=== PATIENT | male | born 1955 | race Caucasian/White ===

== ENCOUNTER 2020-05-08 10:12 | Outpatient (REF) | payer MEDICARE, SELFPAY ==
[2020-05-08 11:44] LABS: MANUAL DIFF FLAG NO
[2020-05-08 11:48] LABS: Basophils Percent Auto 0.6 % (0-2); Eosinophils Absolute Auto 0.1 X10*3/uL (0.0-0.4); Eosinophils Percent Auto 1.4 % (0-4); Hematocrit 46.2 % (42-52); Hemoglobin 14.7 g/dl (14.0-18.0); Imm Gran Abs Auto 0.01 X10*3/uL (0.00-0.03); Imm Gran Pct Auto 0.2 % (0.0-0.4); Lymphocytes Absolute Auto 1.6 X10*3/uL (1.2-4.9); Lymphocytes Percent Auto 24.7 % (20-40); Mean Corpuscular HGB Conc 31.8 g/dl (31.0-36.0); Mean Corpuscular Hemoglobin 28.1 pg (27.0-33.0); Mean Corpuscular Volume 88.2 fL (80-98); Mean Platelet Volume 11.2 fL (9.4-12.4); Monocytes Absolute Auto 0.7 X10*3/uL (0.1-1.2); Monocytes Percent Auto 9.9 % (2-11); Neutrophils Absolute Auto 4.2 X10*3/uL (2.0-8.3); Neutrophils Percent Auto 63.2 % (45-73); Platelet Count 171 X10*3/uL (160-400); Red Blood Count 5.24 X10*6/uL (4.60-5.80); Red Cell Distribution Width 12.8 % (11.0-16.0); White Blood Count 6.6 X10*3/uL (4.8-10.8)
[2020-05-08 12:11] LABS: Alanine Aminotransferase 25 U/L (0-40); Albumin Level 4.6 g/dL (3.5-5.0); Alkaline Phosphatase 75 U/L (39-117); Anion Gap 13 (12-20); Aspartate Amino Transferase 16 U/L (5-37); Bilirubin Total 0.8 mg/dL (0.0-1.0); Blood Urea Nitrogen 28 mg/dL (9-16); Calcium 9.4 mg/dL (8.4-10.2); Carbon Dioxide 31 mmol/L (22-29); Chloride 100 mmol/L (96-108); Cholesterol 164 mg/dL; Estimated Average Glucose 223 mg/dL; Estimated Glomerular Filt Rate > 60; Glucose Fasting 192 mg/dL (60-99); HDL Cholesterol 50 mg/dL; Hemoglobin A1c % 9.4 %; LDL Cholesterol Calculated 85 mg/dl; Potassium 4.9 mmol/l (3.3-5.1); Sodium 139 mmol/L (135-145); Total Protein 7.2 g/dL (6.5-8.0); Triglycerides 148 mg/dL
[2020-05-08 12:13] LABS: Glucose Urine UA >=1000 MG/DL (NEG); Leukocyte Esterase Urine NEG (NEG); Nitrite Urine NEG (NEG); PH 5.5 (5.0-8.0); Urine Blood NEG (NEG); Urine Ketones NEG (NEG); Urine Protein NEG (NEG-TRACE)
[2020-05-08 12:16] LABS: Appearance Urine CLEAR; Color Urine YELLOW
[2020-05-08 12:21] LABS: Creatinine Urine 71.25 mg/dL
[2020-05-08 12:34] LABS: Free T4 (Free Thyroxine) 0.92 ng/dL (0.71-1.85); Thyroid Stimulating Hormone 0.18 uIU/mL (0.32-4.0); Vitamin D 25-OH Total 36.3 ng/mL (>30)
[2020-05-08 12:48] LABS: Folate 17.6 ng/mL (> or = 4.0); Vitamin B12 693 pg/mL (200-900)
[2020-05-08 13:13] LABS: RBC Urine 0-2 /HPF (0); WBC Urine 0-2 /HPF (0-4)
[2020-05-09 17:37] LABS: C Peptide 2.27 ng/mL (0.80-3.85)
[2020-05-13 20:32] LABS: Glutamic acid decarboxylase Ab <5 IU/mL (<5)
[2020-05-14 12:27] LABS: Testosterone, Free 69.1 pg/mL (35.0-155.0); Testosterone, Total 362 ng/dL (250-1100)
== END 2020-05-08 10:13 | disposition home or self-care (01) ==
LOC: HO.LAB 10:12
PROVIDERS: PCP Internal Medicine; Visit Provider Internal Medicine
DX: E11.29 Type 2 diabetes mellitus with other diabetic kidney complication (principal); E78.5 Hyperlipidemia, unspecified; I10 Essential (primary) hypertension; R79.89 Other specified abnormal findings of blood chemistry; E55.9 Vitamin D deficiency, unspecified; F10.10 Alcohol abuse, uncomplicated; G47.33 Obstructive sleep apnea (adult) (pediatric); E34.9 Endocrine disorder, unspecified
CPT/HCPCS: 36415; 80053; 80061; 81001; 81003; 82043; 82306; 82607; 82746; 83036; 84402; 84403; 84439; 84443; 84681; 85025; 86341

== ENCOUNTER 2020-08-10 10:31 | Outpatient (REF) | payer MEDICARE, OTHER, SELFPAY ==
[2020-08-10 10:58] LABS: MANUAL DIFF FLAG NO
[2020-08-10 11:09] LABS: Basophils Percent Auto 0.4 % (0-2); Eosinophils Absolute Auto 0.1 X10*3/uL (0.0-0.4); Eosinophils Percent Auto 0.9 % (0-4); Hemoglobin 14.6 g/dl (14.0-18.0); Imm Gran Abs Auto 0.02 X10*3/uL (0.00-0.03); Imm Gran Pct Auto 0.3 % (0.0-0.4); Lymphocytes Absolute Auto 1.6 X10*3/uL (1.2-4.9); Lymphocytes Percent Auto 21.2 % (20-40); Mean Corpuscular HGB Conc 31.7 g/dl (31.0-36.0); Mean Corpuscular Hemoglobin 28.2 pg (27.0-33.0); Mean Platelet Volume 10.4 fL (9.4-12.4); Monocytes Absolute Auto 0.7 X10*3/uL (0.1-1.2); Monocytes Percent Auto 8.9 % (2-11); Neutrophils Absolute Auto 5.1 X10*3/uL (2.0-8.3); Neutrophils Percent Auto 68.3 % (45-73); Platelet Count 179 X10*3/uL (160-400); Red Blood Count 5.17 X10*6/uL (4.60-5.80); Red Cell Distribution Width 12.7 % (11.0-16.0); White Blood Count 7.5 X10*3/uL (4.8-10.8)
[2020-08-10 11:22] LABS: Estimated Average Glucose 203 mg/dL; Hemoglobin A1c % 8.7 %
[2020-08-10 11:43] LABS: Creatinine Urine 64.67 mg/dL; Microalbum/Creatinine Ratio Ur 21.6 ug/mg cr
[2020-08-10 12:10] LABS: Free T4 (Free Thyroxine) 0.97 ng/dL (0.71-1.85); Thyroid Stimulating Hormone 0.15 uIU/mL (0.32-4.0)
[2020-08-10 12:16] LABS: Folate 19.1 ng/mL (> or = 4.0); Vitamin B12 601 pg/mL (200-900)
[2020-08-10 12:22] LABS: Alanine Aminotransferase 18 U/L (0-40); Albumin Level 4.7 g/dL (3.5-5.0); Alkaline Phosphatase 66 U/L (39-117); Anion Gap 15 (12-20); Aspartate Amino Transferase 15 U/L (5-37); Bilirubin Total 0.8 mg/dL (0.0-1.0); Blood Urea Nitrogen 26 mg/dL (9-16); Calcium 9.7 mg/dL (8.4-10.2); Carbon Dioxide 30 mmol/L (22-29); Chloride 100 mmol/L (96-108); Cholesterol 122 mg/dL; Estimated Glomerular Filt Rate > 60; Glucose Fasting 149 mg/dL (60-99); HDL Cholesterol 42 mg/dL; LDL Cholesterol Calculated 59 mg/dl; Potassium 4.8 mmol/L (3.3-5.1); Sodium 140 mmol/L (135-145); Total Protein 7.2 g/dL (6.5-8.0); Triglycerides 105 mg/dL
== END 2020-08-10 10:32 | disposition home or self-care (01) ==
LOC: HO.LAB 10:31
PROVIDERS: PCP Internal Medicine; Visit Provider Internal Medicine
DX: I10 Essential (primary) hypertension (principal); R80.9 Proteinuria, unspecified; G47.33 Obstructive sleep apnea (adult) (pediatric); E78.00 Pure hypercholesterolemia, unspecified; E11.29 Type 2 diabetes mellitus with other diabetic kidney complication; R94.6 Abnormal results of thyroid function studies; E66.9 Obesity, unspecified; F10.11 Alcohol abuse, in remission; E55.9 Vitamin D deficiency, unspecified
CPT/HCPCS: 36415; 80053; 80061; 82043; 82306; 82607; 82746; 83036; 84439; 84443; 85025

== ENCOUNTER 2020-11-10 10:56 | Outpatient (REF) | payer MEDICARE, OTHER, SELFPAY ==
[2020-11-10 12:01] LABS: MANUAL DIFF FLAG NO
[2020-11-10 12:09] LABS: Basophils Percent Auto 0.3 % (0-2); Eosinophils Absolute Auto 0.1 X10*3/uL (0.0-0.4); Eosinophils Percent Auto 1.3 % (0-4); Hemoglobin 14.4 g/dl (14.0-18.0); Imm Gran Abs Auto 0.01 X10*3/uL (0.00-0.03); Imm Gran Pct Auto 0.2 % (0.0-0.4); Lymphocytes Absolute Auto 1.7 X10*3/uL (1.2-4.9); Lymphocytes Percent Auto 27.8 % (20-40); Mean Corpuscular HGB Conc 31.3 g/dl (31.0-36.0); Mean Corpuscular Hemoglobin 27.6 pg (27.0-33.0); Mean Corpuscular Volume 88.1 fL (80-98); Mean Platelet Volume 10.9 fL (9.4-12.4); Monocytes Absolute Auto 0.7 X10*3/uL (0.1-1.2); Monocytes Percent Auto 10.9 % (2-11); Neutrophils Absolute Auto 3.6 X10*3/uL (2.0-8.3); Neutrophils Percent Auto 59.5 % (45-73); Platelet Count 194 X10*3/uL (160-400); Red Blood Count 5.22 X10*6/uL (4.60-5.80); Red Cell Distribution Width 12.9 % (11.0-16.0)
[2020-11-10 12:19] LABS: Estimated Average Glucose 235 mg/dL; Hemoglobin A1c % 9.8 %
[2020-11-10 12:26] LABS: Glucose Urine UA >=1000 MG/DL (NEG); Leukocyte Esterase Urine NEG (NEG); Nitrite Urine NEG (NEG); PH 5.5 (5.0-8.0); Specific Gravity - Urine 1.025 (1.005-1.025); Urine Blood NEG (NEG); Urine Ketones 15 MG/DL (NEG); Urine Protein NEG (NEG-TRACE)
[2020-11-10 12:28] LABS: Appearance Urine CLEAR; Color Urine YELLOW
[2020-11-10 12:41] LABS: Free T4 (Free Thyroxine) 1.06 ng/dL (0.71-1.85); Thyroid Stimulating Hormone 0.19 uIU/mL (0.32-4.0); Vitamin D 25-OH Total 32.2 ng/mL (>30)
[2020-11-10 13:10] LABS: RBC Urine 0-2 /HPF (0); WBC Urine 0-2 /HPF (0-4)
[2020-11-10 13:15] LABS: Alanine Aminotransferase 16 U/L (0-40); Albumin Level 4.4 g/dL (3.5-5.0); Alkaline Phosphatase 67 U/L (39-117); Anion Gap 13 (12-20); Aspartate Amino Transferase 16 U/L (5-37); Blood Urea Nitrogen 25 mg/dL (9-16); Calcium 9.8 mg/dL (8.4-10.2); Carbon Dioxide 29 mmol/L (22-29); Chloride 102 mmol/L (96-108); Cholesterol 125 mg/dL; Estimated Glomerular Filt Rate > 60; Glucose Fasting 113 mg/dL (60-99); HDL Cholesterol 44 mg/dL; LDL Cholesterol Calculated 64 mg/dl; Potassium 4.6 mmol/L (3.3-5.1); Sodium 139 mmol/L (135-145); Total Protein 6.7 g/dL (6.5-8.0); Triglycerides 86 mg/dL
[2020-11-15 13:02] LABS: Testosterone, Free 54.9 pg/mL (35.0-155.0); Testosterone, Total 337 ng/dL (250-1100)
== END 2020-11-10 10:57 | disposition home or self-care (01) ==
LOC: HO.LAB 10:56
PROVIDERS: PCP Internal Medicine; Visit Provider Internal Medicine
DX: I10 Essential (primary) hypertension (principal); G47.33 Obstructive sleep apnea (adult) (pediatric); E78.00 Pure hypercholesterolemia, unspecified; E11.29 Type 2 diabetes mellitus with other diabetic kidney complication; R94.6 Abnormal results of thyroid function studies; E66.9 Obesity, unspecified; E55.9 Vitamin D deficiency, unspecified; E34.9 Endocrine disorder, unspecified
CPT/HCPCS: 36415; 80053; 80061; 81001; 82306; 83036; 84402; 84403; 84439; 84443; 85025

== ENCOUNTER 2021-02-17 10:21 | Outpatient (REF) | payer MEDICARE, OTHER, SELFPAY ==
[2021-02-17 11:15] LABS: Appearance Urine CLEAR; Color Urine YELLOW; Glucose Urine UA >=1000 MG/DL (NEG); Leukocyte Esterase Urine NEG (NEG); Nitrite Urine NEG (NEG); Specific Gravity - Urine 1.025 (1.005-1.025); Urine Blood NEG (NEG); Urine Ketones NEG (NEG); Urine Protein NEG (NEG-TRACE)
[2021-02-17 11:22] LABS: MANUAL DIFF FLAG NO
[2021-02-17 11:32] LABS: Basophils Percent Auto 0.5 % (0-2); Eosinophils Absolute Auto 0.1 X10*3/uL (0.0-0.4); Eosinophils Percent Auto 1.5 % (0-4); Hematocrit 46.8 % (42-52); Hemoglobin 15.1 g/dl (14.0-18.0); Imm Gran Abs Auto 0.02 X10*3/uL (0.00-0.03); Imm Gran Pct Auto 0.3 % (0.0-0.4); Lymphocytes Absolute Auto 1.6 X10*3/uL (1.2-4.9); Lymphocytes Percent Auto 24.2 % (20-40); Mean Corpuscular HGB Conc 32.3 g/dl (31.0-36.0); Mean Corpuscular Hemoglobin 28.1 pg (27.0-33.0); Mean Platelet Volume 10.7 fL (9.4-12.4); Monocytes Absolute Auto 0.7 X10*3/uL (0.1-1.2); Monocytes Percent Auto 11.3 % (2-11); Neutrophils Absolute Auto 4.1 X10*3/uL (2.0-8.3); Neutrophils Percent Auto 62.2 % (45-73); Platelet Count 198 X10*3/uL (160-400); Red Blood Count 5.38 X10*6/uL (4.60-5.80); Red Cell Distribution Width 12.9 % (11.0-16.0); White Blood Count 6.5 X10*3/uL (4.8-10.8)
[2021-02-17 11:35] LABS: RBC Urine 0-2 /HPF (0); WBC Urine 0 /HPF (0-4)
[2021-02-17 12:26] LABS: Creatinine Urine 76.19 mg/dL; Microalbum/Creatinine Ratio Ur 40.6 ug/mg cr
[2021-02-17 12:34] LABS: Alanine Aminotransferase 17 U/L (0-40); Albumin Level 4.6 g/dL (3.5-5.0); Alkaline Phosphatase 67 U/L (39-117); Anion Gap 14 (12-20); Aspartate Amino Transferase 15 U/L (5-37); Blood Urea Nitrogen 29 mg/dL (9-16); Calcium 9.9 mg/dL (8.4-10.2); Carbon Dioxide 27 mmol/L (22-29); Chloride 102 mmol/L (96-108); Cholesterol 138 mg/dL; Estimated Glomerular Filt Rate > 60; Glucose Fasting 150 mg/dL (60-99); HDL Cholesterol 48 mg/dL; LDL Cholesterol Calculated 68 mg/dl; Potassium 5.1 mmol/L (3.3-5.1); Sodium 138 mmol/L (135-145); Triglycerides 114 mg/dL
[2021-02-17 12:55] LABS: Estimated Average Glucose 212 mg/dL
[2021-02-17 13:09] LABS: TSH reflex Free T4 0.21 uIU/mL (0.32-4.0); Vitamin D 25-OH Total 40.6 ng/mL (>30)
[2021-02-17 14:16] LABS: Free T4 (Free Thyroxine) 0.91 ng/dL (0.71-1.85)
== END 2021-02-17 10:22 | disposition home or self-care (01) ==
LOC: HO.LAB 10:21
PROVIDERS: PCP Internal Medicine; Visit Provider Internal Medicine
DX: I10 Essential (primary) hypertension (principal); E11.29 Type 2 diabetes mellitus with other diabetic kidney complication; R80.9 Proteinuria, unspecified; E55.9 Vitamin D deficiency, unspecified; E78.00 Pure hypercholesterolemia, unspecified; R79.89 Other specified abnormal findings of blood chemistry; E66.9 Obesity, unspecified
CPT/HCPCS: 36415; 80053; 80061; 81001; 82043; 82306; 83036; 84439; 84443; 85025

== ENCOUNTER → 2021-04-07 14:31 | Outpatient (BNVA) | payer MEDICARE, OTHER, SELFPAY | PROVIDERS: PCP Internal Medicine; Referring Provider Internal Medicine; Visit Provider Surgery | DX: Z12.11 Encounter for screening for malignant neoplasm of colon (principal) | CPT/HCPCS: 99202 ==

== ENCOUNTER 2021-06-07 11:10 | Outpatient (REF) | payer MEDICARE, OTHER, SELFPAY ==
[2021-06-07 11:31] LABS: MANUAL DIFF FLAG NO
[2021-06-07 11:58] LABS: Basophils Percent Auto 0.3 % (0-2); Eosinophils Absolute Auto 0.1 X10*3/uL (0.0-0.4); Hemoglobin 15.5 g/dl (14.0-18.0); Imm Gran Abs Auto 0.02 X10*3/uL (0.00-0.03); Imm Gran Pct Auto 0.2 % (0.0-0.4); Lymphocytes Percent Auto 20.4 % (20-40); Mean Corpuscular HGB Conc 32.3 g/dl (31.0-36.0); Mean Corpuscular Hemoglobin 28.1 pg (27.0-33.0); Mean Corpuscular Volume 87.1 fL (80.0-98.0); Mean Platelet Volume 10.8 fL (9.4-12.4); Neutrophils Absolute Auto 6.7 x10*3/uL (2.0-8.3); Neutrophils Percent Auto 68.1 % (45-73); Platelet Count 194 X10*3/uL (160-400); Red Blood Count 5.51 X10*6/uL (4.60-5.80); White Blood Count 9.9 X10*3/uL (4.8-10.8)
[2021-06-07 12:04] LABS: Estimated Average Glucose 217 mg/dL; Hemoglobin A1c % 9.2 %
[2021-06-07 12:16] LABS: Alanine Aminotransferase 24 U/L (0-40); Albumin Level 4.7 g/dL (3.5-5.0); Alkaline Phosphatase 72 U/L (39-117); Anion Gap 11 (12-20); Aspartate Amino Transferase 16 U/L (5-37); Bilirubin Total 0.8 mg/dL (0.0-1.0); Blood Urea Nitrogen 30 mg/dL (9-16); Calcium 10.4 mg/dL (8.4-10.2); Carbon Dioxide 32 mmol/L (22-29); Chloride 100 mmol/L (96-108); Cholesterol 149 mg/dL; Estimated Glomerular Filt Rate > 60; Glucose Fasting 171 mg/dL (60-99); HDL Cholesterol 50 mg/dL; LDL Cholesterol Calculated 72 mg/dl; Potassium 4.9 mmol/L (3.3-5.1); Sodium 138 mmol/L (135-145); Total Protein 7.4 g/dL (6.5-8.0); Triglycerides 138 mg/dL
[2021-06-07 12:40] LABS: Free T4 (Free Thyroxine) 0.96 ng/dL (0.71-1.85); Thyroid Stimulating Hormone 0.12 uIU/mL (0.32-4.0); Vitamin D 25-OH Total 31.7 ng/mL (>30)
[2021-06-07 13:00] LABS: Appearance Urine CLEAR; Color Urine YELLOW; Glucose Urine UA 500 MG/DL (NEG); Leukocyte Esterase Urine NEG (NEG); Nitrite Urine NEG (NEG); Specific Gravity - Urine 1.015 (1.005-1.025); Urine Blood NEG (NEG); Urine Ketones NEG (NEG); Urine Protein NEG (NEG-TRACE)
[2021-06-07 13:22] LABS: Creatinine Urine 77.05 mg/dL
== END 2021-06-07 11:11 | disposition home or self-care (01) ==
LOC: HO.LAB 11:10
PROVIDERS: PCP Internal Medicine; Visit Provider Internal Medicine
DX: E78.00 Pure hypercholesterolemia, unspecified (principal); E11.9 Type 2 diabetes mellitus without complications; E03.9 Hypothyroidism, unspecified; E55.9 Vitamin D deficiency, unspecified; I10 Essential (primary) hypertension
CPT/HCPCS: 36415; 80053; 80061; 81003; 82043; 82306; 83036; 84439; 84443; 85025

== ENCOUNTER 2021-06-29 10:21 | Outpatient (REF) | payer MEDICARE, OTHER, SELFPAY ==
[2021-06-29 11:14] LABS: Appearance Urine CLEAR; Color Urine YELLOW; Glucose Urine UA >=1000 MG/DL (NEG); Leukocyte Esterase Urine NEG (NEG); Nitrite Urine NEG (NEG); PH 5.5 (5.0-8.0); Specific Gravity - Urine >= 1.030 (1.005-1.025); Urine Blood NEG (NEG); Urine Ketones 5 MG/DL (NEG); Urine Protein NEG (NEG-TRACE)
[2021-06-29 12:55] LABS: RBC Urine 0 /HPF (0); WBC Urine 0-2 /HPF (0-4)
[2021-06-30 21:13] LABS: Lyme Abs Screen <0.90 index
== END 2021-06-29 10:22 | disposition home or self-care (01) ==
LOC: HO.LAB 10:21
PROVIDERS: PCP Internal Medicine; Visit Provider Internal Medicine
DX: S40.869A Insect bite (nonvenomous) of unspecified upper arm, initial encounter (principal); W57.XXXS Bitten or stung by nonvenomous insect and other nonvenomous arthropods, sequela
CPT/HCPCS: 36415; 81001; 86617; 86618

== ENCOUNTER 2021-08-06 06:29 | Day surgery (SDC) | payer MEDICARE, OTHER, SELFPAY ==
[2021-08-06 06:37] VITALS: BMI 29.9
[2021-08-06 06:44] VITALS: BP 142/70; PULSE 86; RESP 16; TEMP 36.6; O2SAT 95
[2021-08-06 06:46] LABS: Glucose, Whole Blood 184 mg/dL (60-115)
--- NOTE | 2021-08-06 07:06 | HO.ANESPROP2 ---
[facility] Active Problems Active Problems: All Active Problems (Updated 06/08/21 @ 12:57 by Mulugeta Crowder MD) Colon cancer screening (Acute) Tick bite of axillary region (Acute) Obesity (BMI 30-39.9) (Acute) Depression (Acute) Panic disorder [episodic paroxysmal anxiety] (Acute) Anxiety (Acute) Alcohol abuse, in remission (Acute) Erectile dysfunction (Acute) Hypotestosteronism (Acute) Obstructive sleep apnea (Acute) Low TSH level (Acute) Vitamin D deficiency (Acute) Lumbar degenerative disc disease (Acute) Benign essential hypertension (Acute) Pure hypercholesterolemia (Acute) Proteinuria, unspecified (Acute) Type 2 diabetes mellitus with other diabetic kidney complication (Acute) Past Medical History Medical History Alcohol abuse, in remission Anxiety Benign essential hypertension Depression Erectile dysfunction Hypotestosteronism Low TSH level Lumbar degenerative disc disease Obesity (BMI 30-39.9) Obstructive sleep apnea Panic disorder [episodic paroxysmal anxiety] Proteinuria, unspecified Pure hypercholesterolemia Type 2 diabetes mellitus with other diabetic kidney complication Vitamin D deficiency Family History Family History Father Medical history unknown Adopted Mother Medical history unknown Adopted Family history of problems with anesthesia: No Surgical History Surgical History (Updated 08/06/21 @ 06:50 by Esperanza Cuevas, RN) History of removal of cyst Hx of colonoscopy History of Problems with Anesthesia: No Social History Social History Household Members: Spouse Housing: House Alcohol intake: never Patient Tobacco Use Status: Never used Tobacco Second Hand Smoke Exposure: Yes Use of substances other than those prescribed or required for medical reasons: Yes Substance Use Frequency: Daily Are you DNR?: No Advance Directives: No Advance Directives Information Provided: Yes service: No Current occupational status: retired Meds Allergies Allergy/AdvReac Type Severity Reaction Status Date / Time No Known Allergies Allergy Verified 08/06/21 06:51 Home Medications Medication Instructions Recorded Confirmed Last Taken Type aspirin 81 mg tablet,delayed 81 mg PO DAILY 05/12/20 06/08/21 Unknown History release cholecalciferol (vitamin D3) 25 25 mcg PO DAILY 05/12/20 06/08/21 Unknown History mcg (1,000 unit) capsule ibuprofen 800 mg tablet 800 mg PO TID PRN 05/12/20 06/08/21 Unknown History dulaglutide 3 mg/0.5 mL 3 mg SUBCUT QWEEK 06/08/21 06/08/21 Unknown History subcutaneous pen injector (Trulicity) glipizide 10 mg tablet 10 mg PO DAILY 06/08/21 06/08/21 Unknown History insulin glargine 100 unit/mL (3 24 unit SUBCUT DAILY ml 06/08/21 06/08/21 Unknown History mL) subcutaneous pen Exam Exam Date and Time: August 06, [id number] Height,Weight and Vital Signs: Height 6 ft Weight 100.244 kg Last Vital Signs Temp 97.8 F 08/06/21 06:44 Pulse 86 08/06/21 06:44 Resp 16 08/06/21 06:44 BP 142/70 H 08/06/21 06:44 Pulse Ox 95 08/06/21 06:44 Pertinent Lab Results Pertinent Lab Results: Laboratory Tests 08/06/21 06:42 POC Glucose 184 H Airway Mallampati Class: III TM Dist: >3cm Neck ROM: Full Assessment and Plan Assessment Anesthesia Assessment: Anesthesia Plan Discussed and Chart Reviewed Final Anesthetic Review Family History of Problems with Anesthesia: No History of Problems with Anesthesia: No NPO: Yes ASA Class: III Final Preanesthetic Review: No Changes in Pt Med Stat, Meds/Allgs Chart Reviewed, Consent Obtained/Reviewed and Anes Risks/Benef Reviewed Patient Risk: Intermediate Procedure Risk: Low Anesthetic Plan Anesthetic Plan: MAC: Disposition: Standard PACU
--- NOTE | 2021-08-06 07:19 | MHC.SHP ---
Pre-Procedural Eval Section A Date of Service: 08/06/21 Section B Chief Complaint: screening Details of Present Illness: for screening colonoscopy; last colonoscopy was in 2009; He denies significant GI complaints Relevant Family History (Specify if Yes): No Relevant Social History: Alcohol Use Present Medications: see Short Stay Collaborative assessment Medical History: Significant History ( history of alcohol abuse, obstructive sleep apnea, depression, obesity, hypotestosteronism, hyperlipidemia, diabetes) History of Previous Operations: No relevant previous surgery Allergies: Allergies Allergy/AdvReac Type Severity Reaction Status Date / Time No Known Allergies Allergy Verified 08/06/21 06:51 Review of Systems Sugical H&P ROS: Negative: Constitution, Cardiovascular, Respiratory, Neurological, Psychiatric, Hem-Onc, Allergic/Immunologic, Gastrointestinal, Genitourinary, Musculoskeletal, Integumentary, Endocrine and Eyes/Ears/Nose/Throat Exam Surgical H&P Exam: Normal: HEENT, Normal: Heart, Normal: Lungs, Normal: Extremities, Normal: Abdomen, Normal: Skin and Normal: Neurological Plan Diagnosis/Plan: Unchanged I have reviewed the history and physical and performed a pertinent physical examination on my patient. No changes have occurred unless specified.
[2021-08-06] MEDS: Lactated Ringers 1,000 ML 100 ML IVCONT (07:23)
--- NOTE | 2021-08-06 07:53 | W.PM.OPN ---
Operative Note Operative Note Date of Service: 08/06/21 Narrative: Preop diagnosis: Colon cancer screening Postop diagnosis: Scattered diverticulosis, otherwise normal colonoscopy findings Procedure: Colonoscopy Surgeon: Harjeet Ribera MD The patient is a 66-year-old male referred for screening colonoscopy. His last colonoscopy was in 2009. He understood the technique of colonoscopy for screening. He was aware of the risks, benefits, and alternatives. He was brought to the operating room and placed in left lateral decubitus position under monitored anesthesia care. A full digital rectal exam was done. There were no palpable anal lesions. The tip of the Olympus colonoscope was gently introduced through the anal orifice and advanced with insufflation all the way to the cecum. The cecum was intubated. The cecum was identified by visualization of the ileocecal valve as well as the appendiceal orifice. The cecal mucosa was unremarkable. The scope was gradually withdrawn with careful examination of the entire colonic mucosa being done with scope withdrawal. The patient had good bowel prep so it was unlikely that any lesion may have been missed. There was note of scattered diverticuli throughout the entire colon, more in the sigmoid. The rectum was reached. There were no lesions seen. The anal canal anal was unremarkable. The scope was then withdrawn completely . The patient tolerated procedure well. There were no complications noted. The patient was transferred to the recovery room with stable vital signs.
[2021-08-06 07:57] VITALS: BP 104/57; PULSE 74; RESP 16; TEMP 36.4; O2SAT 97
[2021-08-06 08:12] VITALS: BP 108/75; PULSE 76; RESP 20; TEMP 36.4; O2SAT 98
== END 2021-08-06 09:04 | disposition home or self-care (01) ==
PROVIDERS: PCP Internal Medicine; Visit Provider Surgery
PROC: 0DJD8ZZ Inspection of Lower Intestinal Tract, Via Natural or Artificial Opening Endoscopic (ICD-10-PCS; CPT 45378; principal; 2021-08-06 07:30)
DX: Z12.11 Encounter for screening for malignant neoplasm of colon (principal); K57.30 Diverticulosis of large intestine without perforation or abscess without bleeding; G47.33 Obstructive sleep apnea (adult) (pediatric); I10 Essential (primary) hypertension; E55.9 Vitamin D deficiency, unspecified; E11.29 Type 2 diabetes mellitus with other diabetic kidney complication; N28.9 Disorder of kidney and ureter, unspecified; Z79.4 Long term (current) use of insulin; Z79.82 Long term (current) use of aspirin; Z79.899 Other long term (current) drug therapy; F10.11 Alcohol abuse, in remission
CPT/HCPCS: G0121; 82947

== ENCOUNTER 2021-09-06 10:39 | Outpatient (REF) | payer MEDICARE, OTHER, SELFPAY ==
[2021-09-06 10:49] LABS: MANUAL DIFF FLAG NO
[2021-09-06 11:49] LABS: Basophils Percent Auto 0.5 % (0-2); Eosinophils Absolute Auto 0.1 X10*3/uL (0.0-0.4); Eosinophils Percent Auto 1.3 % (0-4); Hematocrit 48.1 % (42.0-52.0); Hemoglobin 15.4 g/dl (14.0-18.0); Imm Gran Abs Auto 0.02 X10*3/uL (0.00-0.03); Imm Gran Pct Auto 0.3 % (0.0-0.4); Lymphocytes Absolute Auto 1.9 X10*3/uL (1.2-4.9); Lymphocytes Percent Auto 24.5 % (20-40); Mean Corpuscular Hemoglobin 28.2 pg (27.0-33.0); Mean Corpuscular Volume 88.1 fL (80.0-98.0); Mean Platelet Volume 10.9 fL (9.4-12.4); Monocytes Absolute Auto 0.8 X10*3/uL (0.1-1.2); Monocytes Percent Auto 10.3 % (2-11); Neutrophils Absolute Auto 4.8 x10*3/uL (2.0-8.3); Neutrophils Percent Auto 63.1 % (45-73); Platelet Count 191 X10*3/uL (160-400); Red Blood Count 5.46 X10*6/uL (4.60-5.80); White Blood Count 7.7 X10*3/uL (4.8-10.8)
[2021-09-06 11:50] LABS: Estimated Average Glucose 217 mg/dL; Hemoglobin A1c % 9.2 %
[2021-09-06 12:36] LABS: Alanine Aminotransferase 22 U/L (0-40); Albumin Level 4.6 g/dL (3.5-5.0); Alkaline Phosphatase 83 U/L (39-117); Anion Gap 14 (12-20); Aspartate Amino Transferase 14 U/L (5-37); Bilirubin Total 0.8 mg/dL (0.0-1.0); Blood Urea Nitrogen 25 mg/dL (9-16); Calcium 10.3 mg/dL (8.4-10.2); Carbon Dioxide 31 mmol/L (22-29); Chloride 101 mmol/L (96-108); Cholesterol 152 mg/dL; Estimated Glomerular Filt Rate > 60; Glucose Fasting 158 mg/dL (60-99); HDL Cholesterol 49 mg/dL; LDL Cholesterol Calculated 80 mg/dl; Potassium 4.9 mmol/L (3.3-5.1); Sodium 141 mmol/L (135-145); Total Protein 7.5 g/dL (6.5-8.0); Triglycerides 118 mg/dL
[2021-09-06 12:45] LABS: Vitamin D 25-OH Total 37.6 ng/mL (>30)
[2021-09-06 13:03] LABS: Creatinine Urine 103.87 mg/dL; Microalbum/Creatinine Ratio Ur 77.9 ug/mg cr
[2021-09-06 13:25] LABS: Free T4 (Free Thyroxine) 1.01 ng/dL (0.71-1.85)
[2021-09-06 18:30] LABS: Appearance Urine CLEAR; Color Urine YELLOW; Glucose Urine UA >=1000 MG/DL (NEG); Leukocyte Esterase Urine NEG (NEG); Nitrite Urine NEG (NEG); Specific Gravity - Urine 1.025 (1.005-1.025); Urine Blood NEG (NEG); Urine Ketones NEG (NEG); Urine Protein NEG (NEG-TRACE)
[2021-09-06 22:04] LABS: Mucus Urine TRACE /LPF; RBC Urine 0-2 /HPF (0); Squamous Epithelial Cell Urine TRACE /LPF; WBC Urine 0-2 /HPF (0-4)
== END 2021-09-06 10:40 | disposition home or self-care (01) ==
LOC: HO.LAB 10:39
PROVIDERS: PCP Internal Medicine; Visit Provider Internal Medicine
DX: I10 Essential (primary) hypertension (principal); E78.00 Pure hypercholesterolemia, unspecified; E11.9 Type 2 diabetes mellitus without complications; E55.9 Vitamin D deficiency, unspecified
CPT/HCPCS: 36415; 80053; 80061; 81001; 81003; 82043; 82306; 83036; 84439; 84443; 85025

== ENCOUNTER 2021-12-10 14:22 | Outpatient (REF) | payer MEDICARE, OTHER, SELFPAY ==
[2021-12-10 14:32] LABS: MANUAL DIFF FLAG NO
[2021-12-10 14:56] LABS: Basophils Percent Auto 0.5 % (0-2); Eosinophils Absolute Auto 0.2 X10*3/uL (0.0-0.4); Hematocrit 46.2 % (42.0-52.0); Hemoglobin 14.9 g/dl (14.0-18.0); Imm Gran Abs Auto 0.02 X10*3/uL (0.00-0.03); Imm Gran Pct Auto 0.2 % (0.0-0.4); Lymphocytes Absolute Auto 2.7 X10*3/uL (1.2-4.9); Lymphocytes Percent Auto 32.1 % (20-40); Mean Corpuscular HGB Conc 32.3 g/dl (31.0-36.0); Mean Corpuscular Hemoglobin 27.6 pg (27.0-33.0); Mean Corpuscular Volume 85.6 fL (80.0-98.0); Mean Platelet Volume 10.2 fL (9.4-12.4); Monocytes Absolute Auto 0.9 X10*3/uL (0.1-1.2); Monocytes Percent Auto 10.6 % (2-11); Neutrophils Absolute Auto 4.6 x10*3/uL (2.0-8.3); Neutrophils Percent Auto 54.6 % (45-73); Platelet Count 212 X10*3/uL (160-400); White Blood Count 8.4 X10*3/uL (4.8-10.8)
[2021-12-10 14:57] LABS: Appearance Urine CLEAR; Color Urine YELLOW; Glucose Urine UA >=1000 MG/DL (NEG); Leukocyte Esterase Urine NEG (NEG); Nitrite Urine NEG (NEG); PH 5.5 (5.0-8.0); Specific Gravity - Urine >= 1.030 (1.005-1.025); UACC Culture Trigger NO; Urine Blood TRACE (NEG); Urine Ketones 15 MG/DL (NEG); Urine Protein NEG (NEG-TRACE)
[2021-12-10 15:16] LABS: RBC Urine 0-2 /HPF (0); WBC Urine 0-2 /HPF (0-4)
[2021-12-10 15:33] LABS: Creatinine Urine 141.67 mg/dL; Microalbum/Creatinine Ratio Ur 29.6 ug/mg cr
[2021-12-10 16:03] LABS: Alanine Aminotransferase 23 U/L (0-40); Albumin Level 4.6 g/dL (3.5-5.0); Alkaline Phosphatase 72 U/L (39-117); Anion Gap 15 (12-20); Aspartate Amino Transferase 17 U/L (5-37); Bilirubin Total 0.8 mg/dL (0.0-1.0); Blood Urea Nitrogen 27 mg/dL (9-16); Calcium 9.8 mg/dL (8.4-10.2); Carbon Dioxide 28 mmol/L (22-29); Chloride 101 mmol/L (96-108); Cholesterol 132 mg/dL; Estimated Glomerular Filt Rate > 60; Glucose Fasting 89 mg/dL (60-99); HDL Cholesterol 47 mg/dL; LDL Cholesterol Calculated 65 mg/dl; Potassium 4.6 mmol/L (3.3-5.1); Sodium 139 mmol/L (135-145); Total Protein 7.1 g/dL (6.5-8.0); Triglycerides 101 mg/dL
[2021-12-10 16:23] LABS: TSH reflex Free T4 0.23 uIU/mL (0.32-4.0); Vitamin D 25-OH Total 35.8 ng/mL (>30)
[2021-12-10 16:30] LABS: Estimated Average Glucose 220 mg/dL; Hemoglobin A1c % 9.3 %
[2021-12-10 16:55] LABS: Free T4 (Free Thyroxine) 0.93 ng/dL (0.71-1.85)
== END 2021-12-10 14:23 | disposition home or self-care (01) ==
LOC: HO.LAB 14:22
PROVIDERS: PCP Internal Medicine; Visit Provider Internal Medicine
DX: E78.00 Pure hypercholesterolemia, unspecified (principal); E55.9 Vitamin D deficiency, unspecified; E11.9 Type 2 diabetes mellitus without complications; I10 Essential (primary) hypertension
CPT/HCPCS: 36415; 80053; 80061; 81001; 82043; 82306; 83036; 84439; 84443; 85025

== ENCOUNTER 2022-04-07 10:06 | Outpatient (REF) | payer MEDICARE, OTHER, SELFPAY ==
[2022-04-07 10:20] LABS: MANUAL DIFF FLAG NO
[2022-04-07 10:34] LABS: Basophils Percent Auto 0.6 % (0-2); Eosinophils Absolute Auto 0.1 X10*3/uL (0.0-0.4); Eosinophils Percent Auto 1.5 % (0-4); Hematocrit 46.6 % (42.0-52.0); Imm Gran Abs Auto 0.02 X10*3/uL (0.00-0.03); Imm Gran Pct Auto 0.3 % (0.0-0.4); Lymphocytes Absolute Auto 1.9 X10*3/uL (1.2-4.9); Lymphocytes Percent Auto 27.4 % (20-40); Mean Corpuscular HGB Conc 32.2 g/dl (31.0-36.0); Mean Corpuscular Hemoglobin 27.8 pg (27.0-33.0); Mean Corpuscular Volume 86.3 fL (80.0-98.0); Mean Platelet Volume 10.4 fL (9.4-12.4); Monocytes Absolute Auto 0.7 X10*3/uL (0.1-1.2); Monocytes Percent Auto 9.8 % (2-11); Neutrophils Absolute Auto 4.1 x10*3/uL (2.0-8.3); Neutrophils Percent Auto 60.4 % (45-73); Platelet Count 207 X10*3/uL (160-400); Red Cell Distribution Width 13.1 % (11.0-16.0); White Blood Count 6.9 X10*3/uL (4.8-10.8)
[2022-04-07 10:47] LABS: Estimated Average Glucose 212 mg/dL
[2022-04-07 11:01] LABS: Appearance Urine Clear; Color Urine Yellow; Glucose Urine UA >=1000 mg/dL (Negative); Leukocyte Esterase Urine Negative (Negative); Nitrite Urine Negative (Negative); PH 5.5 (5.0-9.0); Specific Gravity - Urine >= 1.030 (1.005-1.025); UMIC TRIGGER UACC YES; Urine Blood Negative (Negative); Urine Ketones Negative (Negative); Urine Protein Negative (Neg-Trace)
[2022-04-07 11:07] LABS: Bacteria Urine None Seen (None Seen); Hyaline Casts Urine 0-2 /LPF (0-2); RBC Urine 0-2 /HPF (0-2); Squamous Epithelial Cell Urine 0-2 /HPF (0-2); WBC Urine 0-5 /HPF (0-5)
[2022-04-07 11:10] LABS: Alanine Aminotransferase 22 U/L (0-40); Albumin Level 4.6 g/dL (3.5-5.0); Alkaline Phosphatase 76 U/L (39-117); Anion Gap 17 (12-20); Aspartate Amino Transferase 17 U/L (5-37); Bilirubin Total 0.7 mg/dL (0.0-1.0); Blood Urea Nitrogen 30 mg/dL (9-16); Calcium 10.1 mg/dL (8.4-10.2); Carbon Dioxide 26 mmol/L (22-29); Chloride 101 mmol/L (96-108); Cholesterol 131 mg/dL; Estimated Glomerular Filt Rate > 60; Glucose Fasting 153 mg/dL (60-99); HDL Cholesterol 42 mg/dL; LDL Cholesterol Calculated 68 mg/dl; Potassium 4.8 mmol/L (3.3-5.1); Sodium 139 mmol/L (135-145); Total Protein 7.2 g/dL (6.5-8.0); Triglycerides 107 mg/dL
[2022-04-07 11:39] LABS: TSH reflex Free T4 0.17 uIU/mL (0.32-4.0); Vitamin D 25-OH Total 36.2 ng/mL (>30)
[2022-04-07 11:51] LABS: Creatinine Urine 86.83 mg/dL; Microalbum/Creatinine Ratio Ur 67.9 ug/mg cr
[2022-04-07 12:16] LABS: Free T4 (Free Thyroxine) 0.96 ng/dL (0.71-1.85)
== END 2022-04-07 10:07 | disposition home or self-care (01) ==
LOC: HO.LAB 10:06
PROVIDERS: PCP Internal Medicine; Visit Provider Internal Medicine
DX: E78.00 Pure hypercholesterolemia, unspecified (principal); E55.9 Vitamin D deficiency, unspecified; E11.9 Type 2 diabetes mellitus without complications; I10 Essential (primary) hypertension
CPT/HCPCS: 36415; 80053; 80061; 81001; 81003; 82043; 82306; 83036; 84439; 84443; 85025

== ENCOUNTER 2022-04-21 10:53 | Outpatient (REF) | payer MEDICARE, OTHER, SELFPAY ==
--- NOTE | ~2022-04-21 | XR_ITS ---
EXAMINATION: XR CHEST CLINICAL INFORMATION: Acute bronchitis. COMPARISON: None TECHNIQUE: 2 views of the chest were obtained. FINDINGS: No significant abnormality is noted involving the heart, lungs, mediastinum, bony thorax or soft tissues. XR/XR chest 2V IMPRESSION: No acute cardiopulmonary process.
== END 2022-04-21 10:54 | disposition home or self-care (01) ==
LOC: HO.HMGCX 10:53
PROVIDERS: PCP Internal Medicine; Visit Provider Internal Medicine
DX: J20.9 Acute bronchitis, unspecified (principal)
CPT/HCPCS: 71046

== ENCOUNTER 2022-08-09 10:40 | Outpatient (REF) | payer MEDICARE, OTHER, SELFPAY ==
[2022-08-09 10:50] LABS: MANUAL DIFF FLAG NO
[2022-08-09 11:39] LABS: Basophils Percent Auto 0.4 % (0-2); Eosinophils Absolute Auto 0.1 X10*3/uL (0.0-0.4); Eosinophils Percent Auto 1.1 % (0-4); Hematocrit 49.4 % (42.0-52.0); Hemoglobin 15.7 g/dl (14.0-18.0); Imm Gran Abs Auto 0.02 X10*3/uL (0.00-0.03); Imm Gran Pct Auto 0.2 % (0.0-0.4); Lymphocytes Absolute Auto 1.7 X10*3/uL (1.2-4.9); Lymphocytes Percent Auto 20.9 % (20-40); Mean Corpuscular HGB Conc 31.8 g/dl (31.0-36.0); Mean Corpuscular Hemoglobin 27.7 pg (27.0-33.0); Mean Corpuscular Volume 87.1 fL (80.0-98.0); Mean Platelet Volume 11.2 fL (9.4-12.4); Monocytes Absolute Auto 0.7 X10*3/uL (0.1-1.2); Monocytes Percent Auto 8.1 % (2-11); Neutrophils Absolute Auto 5.7 x10*3/uL (2.0-8.3); Neutrophils Percent Auto 69.3 % (45-73); Platelet Count 214 X10*3/uL (160-400); Red Blood Count 5.67 X10*6/uL (4.60-5.80); Red Cell Distribution Width 13.4 % (11.0-16.0); White Blood Count 8.2 X10*3/uL (4.8-10.8)
[2022-08-09 12:05] LABS: Estimated Average Glucose 246 mg/dL; Hemoglobin A1c % 10.2 %
[2022-08-09 12:22] LABS: Color Urine Dark Yellow; Glucose Urine UA >=1000 mg/dL (Negative); Leukocyte Esterase Urine Negative (Negative); Nitrite Urine Negative (Negative); Specific Gravity - Urine >= 1.030 (1.005-1.025); UMIC TRIGGER UACC YES; Urine Blood Negative (Negative); Urine Ketones 15 mg/dL (Negative); Urine Protein 30 (1+) mg/dL (Neg-Trace)
[2022-08-09 12:40] LABS: Creatinine Urine 190.31 mg/dL; Microalbum/Creatinine Ratio Ur 49.3 ug/mg cr
[2022-08-09 12:45] LABS: Bacteria Urine None Seen (None Seen); RBC Urine 0-2 /HPF (0-2); Squamous Epithelial Cell Urine 0-2 /HPF (0-2); WBC Urine 0-5 /HPF (0-5)
[2022-08-09 12:47] LABS: Appearance Urine Hazy
[2022-08-09 13:05] LABS: Alanine Aminotransferase 21 U/L (0-40); Albumin Level 4.6 g/dL (3.5-5.0); Alkaline Phosphatase 66 U/L (39-117); Anion Gap 17 (12-20); Aspartate Amino Transferase 17 U/L (5-37); Blood Urea Nitrogen 27 mg/dL (9-16); Calcium 9.8 mg/dL (8.4-10.2); Carbon Dioxide 27 mmol/L (22-29); Chloride 103 mmol/L (96-108); Cholesterol 149 mg/dL; Estimated Glomerular Filt Rate > 60; Free T4 (Free Thyroxine) 0.91 ng/dL (0.71-1.85); Glucose Fasting 128 mg/dL (60-99); HDL Cholesterol 41 mg/dL; LDL Cholesterol Calculated 80 mg/dl; Potassium 4.8 mmol/L (3.3-5.1); Sodium 142 mmol/L (135-145); Thyroid Stimulating Hormone 0.14 uIU/mL (0.32-4.0); Total Protein 7.3 g/dL (6.5-8.0); Triglycerides 144 mg/dL; Vitamin D 25-OH Total 35.4 ng/mL (>30)
== END 2022-08-09 10:41 | disposition home or self-care (01) ==
LOC: HO.LAB 10:40
PROVIDERS: PCP Internal Medicine; Visit Provider Internal Medicine
DX: E11.9 Type 2 diabetes mellitus without complications (principal); E55.9 Vitamin D deficiency, unspecified; R79.89 Other specified abnormal findings of blood chemistry; I10 Essential (primary) hypertension; E78.00 Pure hypercholesterolemia, unspecified
CPT/HCPCS: 36415; 80053; 80061; 81001; 81003; 82043; 82306; 83036; 84439; 84443; 84481; 85025

== ENCOUNTER → 2022-09-02 09:57 | Outpatient (BNVA) | payer MEDICARE, OTHER, SELFPAY | PROVIDERS: PCP Internal Medicine; Visit Provider Nurse Practitioner Family | DX: N40.1 Benign prostatic hyperplasia with lower urinary tract symptoms (principal); R35.0 Frequency of micturition; R35.1 Nocturia | CPT/HCPCS: 51798; 99202 ==

== ENCOUNTER 2022-09-15 07:48 | Outpatient (REF) | payer MEDICARE, OTHER, SELFPAY ==
[2022-09-15 11:42] LABS: PSA,Total (Free>4and<10) 2.94 ng/mL (0.00-4.00)
== END 2022-09-15 07:49 | disposition home or self-care (01) ==
LOC: HO.10HDL 07:48
PROVIDERS: Visit Provider Nurse Practitioner Family
DX: E11.69 Type 2 diabetes mellitus with other specified complication (principal); N52.1 Erectile dysfunction due to diseases classified elsewhere; N40.1 Benign prostatic hyperplasia with lower urinary tract symptoms; R35.0 Frequency of micturition; R35.1 Nocturia; Z12.5 Encounter for screening for malignant neoplasm of prostate
CPT/HCPCS: 36415; 84153

== ENCOUNTER 2022-09-20 08:45 | Outpatient (REF) | payer MEDICARE, OTHER, SELFPAY ==
--- NOTE | ~2022-09-20 | US_ITS ---
EXAMINATION: US RETROPERITONEAL COMPLETE (RENAL) CLINICAL INFORMATION: Frequency of micturition. COMPARISON: X-ray abdomen KUB 09/19/2018. TECHNIQUE: Real-time imaging of the kidneys and bladder. FINDINGS: RIGHT KIDNEY: 13.3 x 5.7 x 7.0 cm (SAG x AP x TRV). The kidney is normal in size, contour, and echogenicity. Renal cortical thickness is normal. 2 small cysts. 9 x 8 x 10 mm simple cyst exophytic to the lateral midpole. 9 x 8 x 8 mm complex cyst with single thin septation in the midpole. No ultrasound follow-up recommended. No renal calculi or hydronephrosis. LEFT KIDNEY: 13.9 x 5.5 x 6.3 cm (SAG x AP x TRV). The kidney is normal in size, contour, and echogenicity. Renal cortical thickness is normal. 1.8 x 2 x 2.5 cm simple cyst in the midpole. No ultrasound follow-up recommended. No renal calculi or hydronephrosis. BLADDER: The bladder wall appears slightly thickened and trabeculated. Bilateral ureteral jets are demonstrated. Prevoid bladder volume is 203 mL. Postvoid bladder volume is 10.2 mL. Enlarged prostate, volume 61.8 mL. US/US retroperitoneal comp IMPRESSION: Small bilateral renal cysts. No ultrasound follow-up recommended. Otherwise normal renal ultrasound. Slightly thickened trabeculated bladder wall. Enlarged prostate gland. No significant post void bladder residual.
== END 2022-09-20 08:46 | disposition home or self-care (01) ==
LOC: HO.HMGCX 08:45
PROVIDERS: PCP Internal Medicine; Visit Provider Nurse Practitioner Family
DX: N40.0 Benign prostatic hyperplasia without lower urinary tract symptoms (principal); R35.1 Nocturia; R35.0 Frequency of micturition
CPT/HCPCS: 76770

== ENCOUNTER → 2022-10-14 09:32 | Outpatient (BNVA) | payer MEDICARE, OTHER, SELFPAY | PROVIDERS: PCP Internal Medicine; Visit Provider Nurse Practitioner Family | DX: N40.1 Benign prostatic hyperplasia with lower urinary tract symptoms (principal); R35.0 Frequency of micturition; R35.1 Nocturia; N52.9 Male erectile dysfunction, unspecified | CPT/HCPCS: 51798; 99212 ==

== ENCOUNTER → 2022-11-15 09:42 | Outpatient (BNVA) | payer MEDICARE, OTHER, SELFPAY | PROVIDERS: PCP Internal Medicine; Visit Provider Nurse Practitioner Family | DX: N40.0 Benign prostatic hyperplasia without lower urinary tract symptoms (principal); R35.1 Nocturia; N32.89 Other specified disorders of bladder; E11.69 Type 2 diabetes mellitus with other specified complication; N52.1 Erectile dysfunction due to diseases classified elsewhere | CPT/HCPCS: 51798; 99212 ==

== ENCOUNTER 2022-11-17 10:24 | Outpatient (REF) | payer MEDICARE, OTHER, SELFPAY ==
[2022-11-17 13:21] LABS: MANUAL DIFF FLAG NO
[2022-11-17 13:42] LABS: Basophils Absolute Auto 0.1 X10*3/uL (0.0-0.2); Basophils Percent Auto 0.7 % (0-2); Eosinophils Absolute Auto 0.1 X10*3/uL (0.0-0.4); Eosinophils Percent Auto 1.3 % (0-4); Hemoglobin 15.4 g/dl (14.0-18.0); Imm Gran Abs Auto 0.01 X10*3/uL (0.00-0.03); Imm Gran Pct Auto 0.1 % (0.0-0.4); Lymphocytes Absolute Auto 1.7 X10*3/uL (1.2-4.9); Lymphocytes Percent Auto 23.8 % (20-40); Mean Corpuscular HGB Conc 32.1 g/dl (31.0-36.0); Mean Corpuscular Hemoglobin 27.7 pg (27.0-33.0); Mean Corpuscular Volume 86.3 fL (80.0-98.0); Monocytes Absolute Auto 0.7 X10*3/uL (0.1-1.2); Monocytes Percent Auto 9.4 % (2-11); Neutrophils Absolute Auto 4.5 x10*3/uL (2.0-8.3); Neutrophils Percent Auto 64.7 % (45-73); Platelet Count 203 X10*3/uL (160-400); Red Blood Count 5.56 X10*6/uL (4.60-5.80); White Blood Count 6.9 X10*3/uL (4.8-10.8)
[2022-11-17 13:49] LABS: Estimated Average Glucose 209 mg/dL; Hemoglobin A1c % 8.9 %
[2022-11-17 13:52] LABS: Appearance Urine Clear; Color Urine Yellow; Glucose Urine UA >=1000 mg/dL (Negative); Leukocyte Esterase Urine Negative (Negative); Nitrite Urine Negative (Negative); PH 5.5 (5.0-9.0); Specific Gravity - Urine >= 1.030 (1.005-1.025); UMIC TRIGGER UACC YES; Urine Blood Negative (Negative); Urine Ketones Trace mg/dL (Negative); Urine Protein Negative (Neg-Trace)
[2022-11-17 13:59] LABS: Alanine Aminotransferase 22 U/L (0-40); Albumin Level 4.3 g/dL (3.5-5.0); Alkaline Phosphatase 64 U/L (39-117); Anion Gap 14 (12-20); Aspartate Amino Transferase 17 U/L (5-37); Bilirubin Total 0.7 mg/dL (0.0-1.0); Blood Urea Nitrogen 28 mg/dL (9-16); Calcium 10.3 mg/dL (8.4-10.2); Carbon Dioxide 26 mmol/L (22-29); Chloride 102 mmol/L (96-108); Cholesterol 128 mg/dL; Estimated Glomerular Filt Rate > 60; Glucose Fasting 129 mg/dL (60-99); HDL Cholesterol 44 mg/dL; LDL Cholesterol Calculated 67 mg/dl; Potassium 4.3 mmol/L (3.3-5.1); Sodium 138 mmol/L (135-145); Total Protein 7.2 g/dL (6.5-8.0); Triglycerides 87 mg/dL
[2022-11-17 14:05] LABS: Bacteria Urine None Seen (None Seen); Hyaline Casts Urine 0-2 /LPF (0-2); RBC Urine 0-2 /HPF (0-2); Squamous Epithelial Cell Urine 0-2 /HPF (0-2); WBC Urine 0-5 /HPF (0-5)
[2022-11-17 14:11] LABS: Creatinine Urine 98.23 mg/dL; Microalbum/Creatinine Ratio Ur 21.3 ug/mg cr
[2022-11-17 14:16] LABS: TSH reflex Free T4 0.14 uIU/mL (0.32-4.0); Vitamin D 25-OH Total 53.8 ng/mL (>30)
[2022-11-17 14:46] LABS: Free T4 (Free Thyroxine) 0.91 ng/dL (0.71-1.85)
== END 2022-11-17 10:25 | disposition home or self-care (01) ==
LOC: HO.10HDL 10:24
PROVIDERS: Visit Provider Internal Medicine
DX: E78.00 Pure hypercholesterolemia, unspecified (principal); E11.9 Type 2 diabetes mellitus without complications; I10 Essential (primary) hypertension; E55.9 Vitamin D deficiency, unspecified; R30.0 Dysuria
CPT/HCPCS: 36415; 80053; 80061; 81001; 82043; 82306; 83036; 84439; 84443; 85025

== ENCOUNTER → 2022-12-18 19:30 | Outpatient (REF) | payer MEDICARE, OTHER, SELFPAY | LOC: HO.SL 19:30 | PROVIDERS: Visit Provider Physician Assistant | DX: G47.33 Obstructive sleep apnea (adult) (pediatric) (principal) | CPT/HCPCS: 95811 ==

== ENCOUNTER → 2022-12-18 19:30 | Outpatient (BNV) | payer MEDICARE, OTHER, SELFPAY | PROVIDERS: Visit Provider Psychiatry & Neurology Neurology | DX: G47.33 Obstructive sleep apnea (adult) (pediatric) (principal); G47.61 Periodic limb movement disorder | CPT/HCPCS: 95811 ==

== ENCOUNTER 2023-02-28 11:39 | Outpatient (REF) | payer MEDICARE, OTHER, SELFPAY ==
[2023-02-28 11:51] LABS: MANUAL DIFF FLAG NO
[2023-02-28 12:57] LABS: Basophils Percent Auto 0.7 % (0-2); Eosinophils Absolute Auto 0.1 X10*3/uL (0.0-0.4); Eosinophils Percent Auto 1.4 % (0-4); Hematocrit 46.1 % (42.0-52.0); Hemoglobin 14.7 g/dl (14.0-18.0); Imm Gran Abs Auto 0.01 X10*3/uL (0.00-0.03); Imm Gran Pct Auto 0.2 % (0.0-0.4); Lymphocytes Absolute Auto 1.7 X10*3/uL (1.2-4.9); Lymphocytes Percent Auto 29.9 % (20-40); Mean Corpuscular HGB Conc 31.9 g/dl (31.0-36.0); Mean Corpuscular Volume 87.8 fL (80.0-98.0); Mean Platelet Volume 10.9 fL (9.4-12.4); Monocytes Absolute Auto 0.6 X10*3/uL (0.1-1.2); Neutrophils Absolute Auto 3.3 x10*3/uL (2.0-8.3); Neutrophils Percent Auto 57.8 % (45-73); Platelet Count 181 X10*3/uL (160-400); Red Blood Count 5.25 X10*6/uL (4.60-5.80); Red Cell Distribution Width 13.2 % (11.0-16.0); White Blood Count 5.7 X10*3/uL (4.8-10.8)
[2023-02-28 13:14] LABS: Estimated Average Glucose 220 mg/dL; Hemoglobin A1c % 9.3 % (<6.0)
[2023-02-28 13:40] LABS: Appearance Urine Clear; Color Urine Yellow; Glucose Urine UA >=1000 mg/dL (Negative); Leukocyte Esterase Urine Negative (Negative); Nitrite Urine Negative (Negative); PH 5.5 (5.0-9.0); Specific Gravity - Urine >= 1.030 (1.005-1.025); UMIC TRIGGER UACC YES; Urine Blood Negative (Negative); Urine Ketones Negative (Negative); Urine Protein Negative (Neg-Trace)
[2023-02-28 14:09] LABS: Alanine Aminotransferase 15 U/L (0-40); Albumin Level 4.3 g/dL (3.5-5.0); Alkaline Phosphatase 72 U/L (39-117); Anion Gap 13 (12-20); Aspartate Amino Transferase 13 U/L (5-37); Bilirubin Total 0.6 mg/dL (0.0-1.0); Blood Urea Nitrogen 23 mg/dL (9-16); Calcium 9.5 mg/dL (8.4-10.2); Carbon Dioxide 28 mmol/L (22-29); Chloride 103 mmol/L (96-108); Cholesterol 117 mg/dL (<200); Estimated Glomerular Filt Rate > 60; Glucose Fasting 133 mg/dL (60-99); HDL Cholesterol 43 mg/dL (>40); LDL Cholesterol Calculated 57 mg/dL (<100); Potassium 4.1 mmol/L (3.3-5.1); Sodium 140 mmol/L (135-145); Triglycerides 85 mg/dL (<150)
[2023-02-28 14:18] LABS: Creatinine Urine 76.21 mg/dL; Microalbum/Creatinine Ratio Ur 20.9 ug/mg cr (<30)
[2023-02-28 14:19] LABS: TSH reflex Free T4 0.08 uIU/mL (0.32-4.0)
[2023-02-28 14:32] LABS: RBC Urine 0-2 /HPF (0-2); WBC Urine 0-5 /HPF (0-5)
[2023-02-28 14:33] LABS: Bacteria Urine None Seen (None Seen); Hyaline Casts Urine 0-2 /LPF (0-2); Squamous Epithelial Cell Urine 0-2 /HPF (0-2)
== END 2023-02-28 11:40 | disposition home or self-care (01) ==
LOC: HO.LAB 11:39
PROVIDERS: PCP Internal Medicine; Visit Provider Internal Medicine
DX: E11.9 Type 2 diabetes mellitus without complications (principal); I10 Essential (primary) hypertension; E55.9 Vitamin D deficiency, unspecified; E78.00 Pure hypercholesterolemia, unspecified
CPT/HCPCS: 36415; 80053; 80061; 81001; 82043; 82306; 82570; 83036; 84439; 84443; 85025

== ENCOUNTER 2023-03-03 09:28 | Outpatient (AMB) | payer MEDICARE, OTHER, SELFPAY ==
[2023-03-03 09:30] VITALS: BP 134/68; PULSE 76; O2SAT 97; BMI 33.2
--- NOTE | 2023-03-03 09:30 | A.OFFPC_ITS ---
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 Accompanied by: Self / Same As Patient Allergies No Known Allergies Allergy (Verified 03/03/23 10:24) Medication List - Last Reconciled 03/03/23 by Mulugeta Crowder MD aspirin 81 mg PO DAILY blood sugar diagnostic 1 strip miscellaneous TID cholecalciferol (vitamin D3) 25 mcg PO DAILY dapagliflozin propanediol (Farxiga) 10 mg PO DAILY finasteride 5 mg PO DAILY 90 days fluoxetine 40 mg PO DAILY glipizide 10 mg PO DAILY insulin glargine 30 units subcut DAILY lisinopril 40 mg PO DAILY 90 days metformin 1,000 mg PO BID semaglutide (Ozempic) 1 mg subcut QWEEK simvastatin 40 mg PO BEDTIME 90 days tadalafil (Cialis) 10 mg PO DAILY 90 days Tobacco use date assessed: 03/03/23 Fall risk assessment: No Falls in past year Last assessed Fall Risk: 03/03/23 Dental Screening Dental Screen Date: 03/03/23 Did you have a dental visit in the last 12 months?: Yes Did you have a dental problem in the last 6 months where you did not have access to dental care?: No Was dental information given to patient?: Patient has dentist HPI 3 Month F/Up HPI Details Patient comes in today for his follow up visit States that he feels okay He denies any headaches or dizziness Denies any chest pains, no SOB No nausea/vomiting, no abdominal pain No change in bowel habits noted Had his follow up labs done a few days ago - to discuss his results States that Dr. Boyce switched him from Trulicity to Ozempic last month, presumably for better efficacy and that he is now on the 1 mg dose of Ozempic once a week [facility] Medical History Obesity (BMI 30-39.9) Depression Panic disorder [episodic paroxysmal anxiety] Anxiety Alcohol abuse, in remission Hypotestosteronism Obstructive sleep apnea Low TSH level Vitamin D deficiency Lumbar degenerative disc disease Benign essential hypertension Pure hypercholesterolemia Proteinuria, unspecified Type 2 diabetes mellitus with other diabetic kidney complication Surgical History Hx of colonoscopy History of removal of cyst Family History Father Medical history unknown Adopted Mother Medical history unknown Adopted Social History Household Members: Spouse Housing: House Alcohol intake: never Patient Tobacco Use Status: Never used Tobacco e-Cigarette/Vaping Use: Never Used Second Hand Smoke Exposure: Yes service: No Current occupational status: retired Cognitive needs: No Hearing needs: No Vision needs: Yes Questionnaire PHQ-9 Over the last 2 weeks, how often have you been bothered by any of the following problems? 1. Little interest or pleasure in doing things: more than half the days 2. Feeling down, depressed, or hopeless: several days 3. Trouble falling or staying asleep, or sleeping too much: nearly every day 4. Feeling tired or having little energy: more than half the days 5. Poor appetite or overeating: nearly every day 6. Feeling bad about yourself - or that you are a failure or have let yourself or your family down: several days 7. Trouble concentrating on things, such as reading the newspaper or watching television: not at all 8. Moving or speaking so slowly that other people could have noticed. Or the opposite - being so fidgety or restless that you have been moving around a lot more than usual: not at all 9. Thoughts that you would be better off or of hurting yourself in some way: not at all Total score: 12 Depression Screening Interpretation: Positive Depression Screening Follow-up: Existing condition and In treatment 47605 - PHQ-9 Billing: Yes Source: Developed by Drs. Moisés Kwon, Tianna Contreras, Nicola Junior and colleagues, with an educational fernando from [employer]. Thrive Questionnaire Date Thrive assessed: 03/03/23 I am a: Patient What is your living situation today?: I have a steady place to live Within the past 12 months, did the food you bought not last and you didn't have the money to get more?: Never true Within the past 12 months, did you worry whether your food would run out before you got money to buy more?: Never true Do you have trouble paying for medicines?: No Do you have trouble getting transportation to medical appointments?: No Do you have trouble paying your heating and electricity bill?: No Do you have trouble taking care of your child, family member or friend?: No Do you have trouble with day-to-day activities such as bathing, preparing meals, shopping, managing finances, etc.?: No Are you currently unemployed and looking for a job?: No Are you interested in more education?: No Please select the resources that you would like help with: None Currently or been in a relationship where the following occur: no concerns reported AUDIT C Alcohol Use Questionnaire (AUDIT-C) 1. How often do you have a drink containing alcohol?: Never 3. How often do you have six or more drinks on one occasion?: Never Total Score: 0 Score Reviewed/Action Taken: Yes LIU-7 AMB Questionnaire LIU-7 Date LIU - 7 assessed: 03/03/23 Feeling nervous, anxious, or on edge: 1 = Several days Not being able to stop or control worryin = Several days Worrying too much about different things: 2 = More than half the days Trouble relaxin = Not at all Being so restless that it is hard to sit still: 0 = Not at all Becoming easily annoyed or irritable: 2 = More than half the days Feeling afraid as if something awful might happen: 3 = Nearly every day Total LIU-7 score (0-4 normal; 5-9 mild; 10-14 moderate; 15-21 severe): 9 Source: Developed by Drs. Moisés Kwon, Tianna Contreras, Nicola Junior and colleagues, with an educational fernando from [employer]. Review of Systems Const Denies chills, Reports fatigue, Denies fever(s) and Denies headache(s) ENT Denies dysphagia, Denies dizziness, Denies otalgia, Denies headache(s), Denies neck pain, Denies odynophagia and Denies sore throat Card Denies chest pain, Denies rapid heart rate, Denies palpitations and Denies dyspnea Resp Denies cough and Denies dyspnea GI Denies abdominal pain, Denies constipation, Denies dysphagia, Denies heartburn, Denies diarrhea, Denies nausea, Denies odynophagia and Denies vomiting Reports erectile dysfunction, Denies dysuria, Reports nocturia and Reports urinary frequency Musc Denies neck pain Skin/Breast Denies rash Neuro Denies dizziness and Denies headache(s) Psych Reports anxiety and Reports depression Endo Reports fatigue and Denies palpitations Physical exam (Primary Care) Vital Signs: Last Vital Signs Pulse 76 03/03/23 09:30 BP 134/68 03/03/23 09:30 Pulse Ox 97 03/03/23 09:30 Oxygen Delivery Method Room Air 03/03/23 09:30 BMI result Body Mass Index 33.2 Tobacco/Smoking Status: Tobacco use Status Tobacco use date assessed 03/03/23 03/03/23 09:37 Patient Tobacco Use Status Never used Tobacco 03/03/23 09:37 e-Cigarette/Vaping Use Never Used 03/03/23 09:37 PHQ-9: PHQ-9 Score PHQ-9: Total score 12 03/03/23 10:36 Depression Screening Interpretation: Positive Depression Screening Follow-up: Existing condition and In treatment Thrive Assessment: Date of Thrive Assessment Date Thrive assessed 03/03/23 03/03/23 09:37 Currently or been in a relationship where the following occur: no concerns reported Const General: no acute distress and alert HENMT Ears: TM's normal bilaterally and EAC's normal Throat: Yes posterior oropharynx normal and Yes tonsils normal (no TP congestion noted) Neck Neck: Yes no lymphadenopathy and Yes supple Resp Auscultation: clear to auscultation bilaterally, no rales and no wheezes Cardio Rate: regular rate Rhythm: regular rhythm Heart sounds: no murmurs GI Palpation (GI): Soft to palpation and nontender Auscultation: normal bowel sounds General: Yes no CVA tenderness Back/Spine/Pelvis Back: no CVA tenderness Thoracic/Lumbar Spine: lumbar spinal tenderness Skin Rashes: no rashes Extrem General: Yes no clubbing, cyanosis or edema Results Reviewed Results Reviewed: Laboratory Tests 02/28/23 02/28/23 11:45 11:50 WBC 5.7 Hgb 14.7 Hct 46.1 Plt Count 181 Sodium 140 Potassium 4.1 Creatinine 0.75 Estimated GFR > 60 Fasting Glucose 133 H Hemoglobin A1c % 9.3 H Calcium 9.5 D AST 13 ALT 15 Triglycerides 85 Cholesterol 117 LDL Cholesterol, Calc 57 HDL Cholesterol 43 25-OH Vitamin D Total 43.0 TSH 0.08 L Free T4 0.90 Urine pH 5.5 Ur Specific [place] >= 1.030 H Urine Protein Negative Urine Glucose (UA) >=1000 H Urine Blood Negative Microalb/Creat Ratio 20.9 Assessment and Plan Assessment & Plan (1) Type 2 diabetes mellitus with other diabetic kidney complication: Code(s): E11.29 - Type 2 diabetes mellitus with other diabetic kidney complication Plan: HgbA1c was at 9.3% on his labs done a few days ago (was at 8.9% a few months ago) - goal is < 7.0% Reinforced diabetic diet Continue Metformin 1000 mg BID, Glipizide 10 mg QD, Farxiga 10 mg QD and Basaglar 30 units Q PM He was recently switched from Trulicity to Ozempic by Dr. Boyce and is currently on Ozempic 1 mg SQ once a week now Follow up with waiter/waitress formal at [facility] and with endocrinology (Dr. Boyce) as scheduled (2) Proteinuria, unspecified: Code(s): R80.9 - Proteinuria, unspecified Qualifiers: Proteinuria type: unspecified Qualified Code(s): R80.9 - Proteinuria, unspecified Plan: Stable - will continue to monitor his renal function regularly (3) Pure hypercholesterolemia: Code(s): E78.00 - Pure hypercholesterolemia, unspecified Plan: Results of his labs done a few days ago reviewed and discussed with patient Reinforced low cholesterol diet Continue Simvastatin 40 mg QD Will recheck his labs and fasting lipids in 3 months for follow up (4) Benign essential hypertension: Code(s): I10 - Essential (primary) hypertension Plan: Reinforced low sodium diet - goal is BP of 120/80 mm or less Continue Lisinopril 40 mg QD (5) Lumbar degenerative disc disease: Code(s): M51.36 - Other intervertebral disc degeneration, lumbar region Plan: Reinforced activity and weight lifting restrictions Follow-up with [facility] as scheduled Continue ibuprofen 800 mg 3 times a day with food as needed for pain (6) Vitamin D deficiency: Code(s): E55.9 - Vitamin D deficiency, unspecified Plan: Continue Vitamin D3 1000 units QD (7) Low TSH level: Code(s): R79.89 - Other specified abnormal findings of blood chemistry Plan: Patient is currently clinically euthyroid and his free T4 level remains normal on his recent labs Will continue to monitor his TFTs regularly (8) Obstructive sleep apnea: Code(s): G47.33 - Obstructive sleep apnea (adult) (pediatric) Plan: Continue using his CPAP device daily when sleeping at night States that his device is breaking down and he will need a replacement unit soon Just had a repeat sleep study done in December 2022 - study revealed (+) severe sleep apnea, mostly obstructive, with increased severity in REM sleep He was supposed to be scheduled for a repeat sleep study with CPAP titration but states that he has not yet been contacted about this Have advised him to give Sleep Medicine a call as soon as he can so they can get him scheduled right away and get this done so they can then go about getting him a new/replacement CPAP device (9) Hypotestosteronism: Code(s): E34.9 - Endocrine disorder, unspecified Plan: Improved - serum testosterone level was normal when checked a couple of years ago; will continue to monitor every now and then (10) Erectile dysfunction: Code(s): N52.9 - Male erectile dysfunction, unspecified Qualifiers: Erectile dysfunction type: unspecified Qualified Code(s): N52.9 - Male erectile dysfunction, unspecified Plan: Continue Finasteride 5 mg QD and Tadalafil 10 mg QD Follow up with urology as scheduled (11) Urinary frequency: Code(s): R35.0 - Frequency of micturition Plan: Most due to BPH but advised again that this can be also be partly due to hyperglycemia Continue Tadalafil 10 mg QD and Finasteride 5 mg QD (12) Alcohol abuse, in remission: Code(s): F10.11 - Alcohol abuse, in remission Plan: States that he has been completely sober for over 2 years now Encouraged to continue maintaining his sobriety Follow up with AA as scheduled (13) Anxiety: Code(s): F41.9 - Anxiety disorder, unspecified Plan: States that Fluoxetine is helping with his anxiety symptoms (14) Depression: Code(s): F32.9 - Major depressive disorder, single episode, unspecified Qualifiers: Active/Remission status: currently active Depression Type: major depressive disorder Major depression episode severity: unspecified Major depression recurrence: recurrent Qualified Code(s): F33.9 - Major depressive disorder, recurrent, unspecified Plan: Continue Fluoxetine 40 mg QD Follow-up with Psychiatry as scheduled (15) Obesity (BMI 30-39.9): Code(s): E66.9 - Obesity, unspecified Plan: Reinforced diet/exercise as tolerated/ lose weight Plan Follow up in 3 months Orders: Orders Lipid Panel 3 Months E78.00 - Pure hypercholesterolemia, unspecified Free T4 (Free Thyroxine) 3 Months R79.89 - Other specified abnormal findings of blood chemistry Thyroid Stimulating Hormone 3 Months R79.89 - Other specified abnormal findings of blood chemistry Complete Blood Count Auto Diff 3 Months I10 - Essential (primary) hypertension Comprehensive [place]. Panel Fast 3 Months E78.00 - Pure hypercholesterolemia, unspecified Hemoglobin A1c 3 Months E11.9 - Type 2 diabetes mellitus without complications Microalbumin, Random (w Creat) 3 Months E11.9 - Type 2 diabetes mellitus without complications UA CC w/rflx Micro + Cult 3 Months R30.0 - Dysuria Vitamin D 25-OH Total 3 Months E55.9 - Vitamin D deficiency, unspecified Vitamin B12 and Folate 3 Months E53.8 - Deficiency of other specified B group vitamins Coding Level of Care Code Est Pt Level 4 (40190) Diagnoses Type 2 diabetes mellitus with other diabetic kidney complication E11.29 Proteinuria, unspecified type R80.9 Proteinuria type: unspecified Pure hypercholesterolemia E78.00 Benign essential hypertension I10 Lumbar degenerative disc disease M51.36 Vitamin D deficiency E55.9 Low TSH level R79.89 Obstructive sleep apnea G47.33 Hypotestosteronism E34.9 Erectile dysfunction, unspecified erectile dysfunction type N52.9 Erectile dysfunction type: unspecified Urinary frequency R35.0 Alcohol abuse, in remission F10.11 Anxiety F41.9 Episode of recurrent major depressive disorder, unspecified depression episode severity F33.9 Active/Remission status: currently active Depression Type: major depressive disorder Major depression episode severity: unspecified Major depression recurrence: recurrent Obesity (BMI 30-39.9) E66.9
== END 2023-03-03 10:37 | disposition home or self-care (01) ==
PROVIDERS: PCP Internal Medicine; Visit Provider Internal Medicine
DX: E78.00 Pure hypercholesterolemia, unspecified (principal); I10 Essential (primary) hypertension; E55.9 Vitamin D deficiency, unspecified; F33.9 Major depressive disorder, recurrent, unspecified; R94.6 Abnormal results of thyroid function studies; E34.9 Endocrine disorder, unspecified; N52.9 Male erectile dysfunction, unspecified; R35.0 Frequency of micturition; F10.11 Alcohol abuse, in remission; F41.9 Anxiety disorder, unspecified; E66.9 Obesity, unspecified
CPT/HCPCS: 99214

== ENCOUNTER → 2023-03-19 20:30 | Outpatient (REF) | payer MEDICARE, OTHER, SELFPAY | LOC: HO.SL 20:30 | PROVIDERS: Visit Provider Physician Assistant | DX: G47.33 Obstructive sleep apnea (adult) (pediatric) (principal) | CPT/HCPCS: 95811 ==

== ENCOUNTER → 2023-03-19 22:52 | Outpatient (BNV) | payer MEDICARE, OTHER, SELFPAY | PROVIDERS: Visit Provider Internal Medicine | DX: G47.33 Obstructive sleep apnea (adult) (pediatric) (principal); G47.61 Periodic limb movement disorder | CPT/HCPCS: 95811 ==

== ENCOUNTER 2023-03-21 09:03 | Outpatient (AMB) | payer MEDICARE, OTHER, SELFPAY ==
[2023-03-21 10:27] VITALS: BP 156/74; PULSE 75; O2SAT 96; BMI 33.9
--- NOTE | 2023-03-21 10:27 | MHC.OFFVIS ---
Intake Vital Signs 03/21/23 10:27 Height 5 ft 10 in Weight 236 lb BMI 33.9 BP 156/74 H Blood Pressure Location Rt brachial Position Sitting Pulse 75 Pulse Source Pulse Oximeter Pulse Oximetry (%) 96 Oxygen Delivery Method Room Air Intake Visit Reasons: Obstructive sleep apnea Supervisor Display Fabrication Required: No Boilermaker Helper: Boilermaker Helper offered & declined Accompanied by: Self / Same As Patient Allergies No Known Allergies Allergy (Verified 03/21/23 11:25) Medication List - Last Reconciled 03/21/23 by Breanne Mcallister MD aspirin 81 mg PO DAILY blood sugar diagnostic 1 strip miscellaneous TID cholecalciferol (vitamin D3) 25 mcg PO DAILY dapagliflozin propanediol (Farxiga) 10 mg PO DAILY finasteride 5 mg PO DAILY 90 days fluoxetine 40 mg PO DAILY glipizide 10 mg PO DAILY insulin glargine 30 units subcut DAILY lisinopril 40 mg PO DAILY 90 days metformin 1,000 mg PO BID semaglutide (Ozempic) 1 mg subcut QWEEK simvastatin 40 mg PO BEDTIME 90 days tadalafil (Cialis) 10 mg PO DAILY 90 days Do you need a note to return to daycare/school/sports/work: No HPI Obstructive sleep apnea HPI Details THIS 68 YEARS OLD GENTLEMAN IS BEING SEEN FOR THE 1ST TIME IN RELATION TO HIS SLEEP APNEA. He has history of obstructive sleep apnea at least for the last 20+ years. Has been on CPAP therapy all along for these years. He has old CPAP machine, the regional replaced after 10 years. And now the current machine is also about 10 years old, giving him signals that it is at the end of life. This gentleman has been grossly overweight, weight fluctuating, but currently has been almost unchanged in the last few years. He has been fully dependent on his CPAP. He does complain of leg movements, and some discomfort especially in the evening hours. During his sleep he is not aware of any leg pain or movements. He has multiple comorbidities as noted in [facility] including diabetes mellitus, benign prostatic hypertrophy, depression, hypertension, hyperlipidemia, erectile dysfunction. List of his current meds is reviewed. He is on antidepressant med fluoxetine 40 mg a day, an SSRI agent which can contribute to periodic limb movement disorder. This gentleman had a polysomnogram study in the sleep lab. On 03/03/23 which was positive for severe obstructive sleep apnea . Total sleep time AHI 53 per hour, with PLMS, and hypoxemia. CPAP TITRATION STUDY PERFORMED ON 03/21/23 IS REVIEWED. . AND WILL BE DESCRIBED BELOW [facility] Medical History (Updated 03/21/23 @ 11:44 by Breanne Mcallister MD) Restless leg syndrome Obesity (BMI 30-39.9) Depression Panic disorder [episodic paroxysmal anxiety] Anxiety Alcohol abuse, in remission Hypotestosteronism Obstructive sleep apnea Low TSH level Vitamin D deficiency Lumbar degenerative disc disease Benign essential hypertension Pure hypercholesterolemia Proteinuria, unspecified Type 2 diabetes mellitus with other diabetic kidney complication Surgical History Hx of colonoscopy History of removal of cyst Family History Father Medical history unknown Adopted Mother Medical history unknown Adopted Social History (Updated 03/21/23 @ 10:35 by Carolyn Armenta LPN) Household Members: Spouse Housing: House Alcohol intake: never Patient Tobacco Use Status: Never used Tobacco e-Cigarette/Vaping Use: Never Used Second Hand Smoke Exposure: Yes Substance Use Type: Marijuana service: No Current occupational status: retired Cognitive needs: No Hearing needs: No Vision needs: Yes Review of Systems Const All systems reviewed & are unremarkable except as noted in HPI and below Eyes Reports no additional complaints ENT Denies nasal congestion and Denies nasal discharge Card Denies chest pain, Denies irregular heart rhythm and Denies leg edema Resp Reports as per HPI GI Reports no additional complaints Reports erectile dysfunction and Reports nocturia Musc Reports back pain (CHRONIC) Skin/Breast Reports system reviewed and no additional complaints, except as documented Neuro Reports restless legs and Reports paresthesias (IN LOWER EXTREMITIES) Psych Reports depression (CONTROLLED WITH MED) Physical Exam Vital Signs: Last Vital Signs Pulse 75 03/21/23 10:27 BP 156/74 H 03/21/23 10:27 Pulse Ox 96 03/21/23 10:27 Oxygen Delivery Method Room Air 03/21/23 10:27 BMI result Body Mass Index 15.2 PATIENT IS MODERATELY OBESE, WITH A ROUND FACE. HE DOES HAVE MODERATE DEGREE OF RETROGANTHIA OF THE LOWER JAW Const General: comfortable, no acute distress, alert and awake Orientation/consciousness: patient oriented x3 HEENT Head: Yes normal to inspection General nose exam: No nasal polyps present and No nasal discharge present Face and sinus: Yes sinuses nontender Mouth: oropharynx normal Teeth and gingiva: other (MILD RETROGANTHIA OF THE LOWER JAW) Throat: Yes posterior oropharynx normal Eyes General: appearance normal, both eyes and all related structures Neck Neck: Yes normal visual inspection, Yes no lymphadenopathy, Yes trachea midline and Yes no JVD Thyroid: Thyroid normal Chest Chest palpation & inspection: normal inspection of the chest, normal palpation of entire chest wall and no tenderness Resp Other: PERCUSSION NOTE RESONANT, BREATH SOUNDS ARE EQUAL ON BOTH SIDES, NO WHEEZES RHONCHI OR CREPITATIONS ARE HEARD. Cardio Palpation: normal PMI Rate: regular rate Rhythm: regular rhythm Heart sounds: no gallops and no murmurs GI Palpation (GI): Soft to palpation, nontender, No hepatosplenomegaly present and no masses Auscultation: normal bowel sounds Back/Spine/Pelvis Thoracic/Lumbar Spine: thoracic and lumbar spine normal to inspection and thoraco-lumbar ROM limited Skin General skin exam: no rashes or lesions noted Neuro General: patient oriented x3 and no focal motor deficits Cranial nerves: Yes CN's II-XII intact bilaterally Extrem General: Yes normal to inspection, Yes no clubbing, cyanosis or edema and Yes no calf tenderness Psych Appearance: grossly normal and well kempt Speech and movement: Normal speech and movement present Results Reviewed Results Reviewed: POLYSOMNOGRAM STUDY FOR CPAP TITRATION, ON 03/21. SUCCESSFUL TITRATION WITH PRESSURE OF 13 CM USING FULLFACE MASK OF LARGE SIZE F-20 THERE WAS NO RESIDUAL HYPOXEMIA. PATIENT HAD SIGNIFICANT PERIODIC LIMB MOVEMENT DISORDER, WITH TOTAL NUMBER OF PLMs 1032 AND PLM INDEX 180 PER HOUR PLMS AROUSAL INDEX 16 PER HOUR THE SLEEP QUALITY WAS SUBOPTIMAL WITH MUCH DECREASE IN N-3 AND REM STAGE, MOST OF THE SLEEP WAS IN SENIOR COMPENSATION CONSULTANT STAGES. Assessment & Plan Assessment & Plan (1) Obesity (BMI 30-39.9): Comment: PATIENT IS MODERATELY OBESE, HE IS AWARE OF THIS ISSUE. HAS NOT BEEN ABLE TO LOSE MUCH WEIGHT. HE IS INSTRUCTED ABOUT. DIET AND IMPORTANCE OF EXERCISE Code(s): E66.9 - Obesity, unspecified (2) Obstructive sleep apnea: Comment: LONGSTANDING HISTORY OF OBSTRUCTIVE SLEEP APNEA. CURRENT CPAP DEVICE IS OLD AND ALMOST NONFUNCTIONING. PER REPEAT POLYSOMNOGRAM STUDY HE HAS VERY SEVERE OBSTRUCTIVE SLEEP APNEA WITH PERIODIC LIMB MOVEMENT DISORDER. CPAP TITRATION STUDY INDICATES THAT THE J CARLOS WAS TREATED WITH PRESSURE OF 13 CM. USING FULLFACE MASK OF LARGE SIZE. WE ARE SENDING ORDER TO DME SUPPLIER FOR A NEW CPAP MACHINE WITH THE PRESSURE SETTING OF 13 CM. Code(s): G47.33 - Obstructive sleep apnea (adult) (pediatric) (3) Restless leg syndrome: Comment: THIS PATIENT HAS SIGNIFICANT DEGREE OF PERIODIC LIMB MOVEMENT DISORDER. IT COULD BE CONTRIBUTED TO POSSIBLE DIABETIC NEUROPATHY AND ALSO SIDE EFFECT OF SSRI AGENT( FLUOXETINE) IT MAY BE CONTRIBUTING TO HIS POOR QUALITY OF SLEEP. PLAN: WILL TRY ROPINIROLE 1 MG AT BEDTIME. Code(s): G25.81 - Restless legs syndrome Coding Level of Care Code New Pt Level 4 (70281) Diagnoses Obesity (BMI 30-39.9) E66.9 Obstructive sleep apnea G47.33 Restless leg syndrome G25.81
== END 2023-03-21 11:08 | disposition home or self-care (01) ==
PROVIDERS: PCP Internal Medicine; Referring Provider Internal Medicine; Visit Provider Internal Medicine
DX: G47.33 Obstructive sleep apnea (adult) (pediatric) (principal); G25.81 Restless legs syndrome; E66.9 Obesity, unspecified
CPT/HCPCS: 99214

== ENCOUNTER → 2023-03-21 09:03 | Outpatient (BNVA) | payer MEDICARE, OTHER, SELFPAY | PROVIDERS: PCP Internal Medicine; Referring Provider Internal Medicine; Visit Provider Internal Medicine | DX: G47.33 Obstructive sleep apnea (adult) (pediatric) (principal); G47.34 Idiopathic sleep related nonobstructive alveolar hypoventilation; M26.19 Other specified anomalies of jaw-cranial base relationship; G25.81 Restless legs syndrome; E66.01 Morbid (severe) obesity due to excess calories; Z68.33 Body mass index [BMI] 33.0-33.9, adult; Z99.89 Dependence on other enabling machines and devices | CPT/HCPCS: 99212 ==

== ENCOUNTER 2023-05-24 09:45 | Outpatient (AMB) | payer MEDICARE, OTHER, SELFPAY ==
[2023-05-24 10:00] VITALS: BP 120/60; PULSE 75; O2SAT 98; BMI 33.3
--- NOTE | 2023-05-24 10:00 | A.OFFVIS_ITS ---
Intake Vital Signs 05/24/23 10:00 Height 5 ft 10 in Weight 232 lb BMI 33.3 BP 120/60 Blood Pressure Location Lt brachial Position Sitting Pulse 75 Pulse Source Pulse Oximeter Pulse Oximetry (%) 98 Oxygen Delivery Method Room Air Intake Visit Reasons: Obstructive sleep apnea Intake Note: pt is here for follow up and states he is using the cpap and doing well has a full face mask, above the nose. He has had cpap for many years, this is his 3rd machine. pt is on ropinirole for restless legs and not sure if he feels different with this. 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 Required: No Allergies No Known Allergies Allergy (Verified 05/24/23 10:08) Medication List - Last Reconciled 05/24/23 by Breanne Mcallister MD aspirin 81 mg PO DAILY blood sugar diagnostic 1 strip miscellaneous TID cholecalciferol (vitamin D3) 25 mcg PO DAILY dapagliflozin propanediol (Farxiga) 10 mg PO DAILY finasteride 5 mg PO DAILY 90 days fluoxetine 40 mg PO DAILY glipizide 10 mg PO DAILY insulin glargine 30 units subcut DAILY lisinopril 40 mg PO DAILY 90 days metformin 1,000 mg PO BID multivitamin (Daily Multi-Vitamin tablet) 1 tab PO DAILY ropinirole 1 mg PO BEDTIME simvastatin 40 mg PO BEDTIME 90 days tadalafil (Cialis) 10 mg PO DAILY 90 days tirzepatide (Mounjaro) 5 mg subcut QWEEK Do you need a note to return to daycare/school/sports/work: No HPI Obstructive sleep apnea HPI Details 68 years old gentleman with longstanding history of obstructive sleep apnea. After the most recent polysomnogram study he has been started on his 3rd new CPAP device. He has fullface mask which fits well and there is no air leak. He sleeps almost 9 hours ( about 7 hours at night and 2 hours during the daytime) Sometimes wakes up with some involuntary movements in the trunk and legs, but he does not mind it and goes back to sleep. He does not have felt any difference with the use of ropinirole. Does not have any symptoms of restless leg syndrome. Overall he is very happy with his new CPAP machine and the current pressure setting . [facility] Medical History Restless leg syndrome Obesity (BMI 30-39.9) Depression Panic disorder [episodic paroxysmal anxiety] Anxiety Alcohol abuse, in remission Hypotestosteronism Obstructive sleep apnea Low TSH level Vitamin D deficiency Lumbar degenerative disc disease Benign essential hypertension Pure hypercholesterolemia Proteinuria, unspecified Type 2 diabetes mellitus with other diabetic kidney complication Surgical History Hx of colonoscopy History of removal of cyst Family History Father Medical history unknown Adopted Mother Medical history unknown Adopted Social History Household Members: Spouse Housing: House Alcohol intake: never Patient Tobacco Use Status: Never used Tobacco e-Cigarette/Vaping Use: Never Used Second Hand Smoke Exposure: Yes Substance Use Type: Marijuana service: No Current occupational status: retired Cognitive needs: No Hearing needs: No Vision needs: Yes Review of Systems Const All systems reviewed & are unremarkable except as noted in HPI and below Eyes Reports no additional complaints ENT Denies nasal congestion and Denies nasal discharge Card Denies chest pain, Denies irregular heart rhythm and Denies leg edema Resp Reports as per HPI GI Reports no additional complaints Reports erectile dysfunction and Reports nocturia Musc Reports back pain (CHRONIC) Skin/Breast Reports system reviewed and no additional complaints, except as documented Neuro Reports restless legs and Reports paresthesias (IN LOWER EXTREMITIES) Psych Reports depression (CONTROLLED WITH MED) Physical Exam Vital Signs: Last Vital Signs Pulse 75 05/24/23 10:00 BP 120/60 05/24/23 10:00 Pulse Ox 98 05/24/23 10:00 Oxygen Delivery Method Room Air 05/24/23 10:00 BMI result Body Mass Index 33.3 PATIENT IS MODERATELY OBESE, WITH A ROUND FACE. HE DOES HAVE MODERATE DEGREE OF RETROGANTHIA OF THE LOWER JAW Const General: comfortable, no acute distress, alert and awake Orientation/consciousness: patient oriented x3 HEENT Head: Yes normal to inspection General nose exam: No nasal polyps present and No nasal discharge present Face and sinus: Yes sinuses nontender Mouth: oropharynx normal Teeth and gingiva: other (MILD RETROGANTHIA OF THE LOWER JAW) Throat: Yes posterior oropharynx normal Eyes General: appearance normal, both eyes and all related structures Neck Neck: Yes normal visual inspection, Yes no lymphadenopathy, Yes trachea midline and Yes no JVD Thyroid: Thyroid normal Chest Chest palpation & inspection: normal inspection of the chest, normal palpation of entire chest wall and no tenderness Resp Other: PERCUSSION NOTE RESONANT, BREATH SOUNDS ARE EQUAL ON BOTH SIDES, NO WHEEZES RHONCHI OR CREPITATIONS ARE HEARD. Cardio Palpation: normal PMI Rate: regular rate Rhythm: regular rhythm Heart sounds: no gallops and no murmurs GI Palpation (GI): Soft to palpation, nontender, No hepatosplenomegaly present and no masses Auscultation: normal bowel sounds Back/Spine/Pelvis Thoracic/Lumbar Spine: thoracic and lumbar spine normal to inspection and thoraco-lumbar ROM limited Skin General skin exam: no rashes or lesions noted Neuro General: patient oriented x3 and no focal motor deficits Cranial nerves: Yes CN's II-XII intact bilaterally Extrem General: Yes normal to inspection, Yes no clubbing, cyanosis or edema and Yes no calf tenderness Psych Appearance: grossly normal and well kempt Speech and movement: Normal speech and movement present Results Reviewed Results Reviewed: Compliance report for the last 30 nights is reviewed. He has used 30/30 nights, 100%. Average use it per day 9 hours 28 minutes. Maximum air leak 45 Residual AHI 0.9 Assessment & Plan Assessment & Plan (1) Obesity (BMI 30-39.9): Comment: PATIENT IS MODERATELY OBESE, HE IS AWARE OF THIS ISSUE. HAS NOT BEEN ABLE TO LOSE MUCH WEIGHT. HE IS INSTRUCTED ABOUT. DIET AND IMPORTANCE OF EXERCISE Code(s): E66.9 - Obesity, unspecified Plan: as above (2) Obstructive sleep apnea: Comment: LONGSTANDING HISTORY OF OBSTRUCTIVE SLEEP APNEA. CURRENT NEW CPAP DEVICE IS WORKING VERY WELL AND HE IS HAPPY WITH ITS USE. ( FF MASK AND PRESSURE =13 CMs ) Code(s): G47.33 - Obstructive sleep apnea (adult) (pediatric) Plan: COMMENDED FOR EXCELLENT COMPLIANCE AND ENCOURAGED TO KEEP ON USING IT REGULARLY (3) Restless leg syndrome: Comment: PATIENT WAS NOTED TO HAVE SIGNIFICANT DEGREE OF PLM DISORDER, HE DENIES SYMPTOMS OF RESTLESS LEG SYNDROME. USE OF ROPINIROLE 1 MG AT NIGHT HAS NOT MADE ANY DIFFERENCE. Code(s): G25.81 - Restless legs syndrome Plan: LONG HE SLEEPS GOOD AND DOES NOT HAVE SYMPTOMS OF RLS . WILL DISCONTINUE ROPINIROLE Coding Level of Care Code Est Pt Level 3 (95459) Diagnoses Obesity (BMI 30-39.9) E66.9 Obstructive sleep apnea G47.33 Restless leg syndrome G25.81
== END 2023-05-24 11:23 | disposition home or self-care (01) ==
PROVIDERS: PCP Internal Medicine; Visit Provider Internal Medicine
DX: E66.9 Obesity, unspecified (principal); G47.33 Obstructive sleep apnea (adult) (pediatric); G25.81 Restless legs syndrome
CPT/HCPCS: 99213

== ENCOUNTER → 2023-05-24 09:45 | Outpatient (BNVA) | payer MEDICARE, OTHER, SELFPAY | PROVIDERS: PCP Internal Medicine; Visit Provider Internal Medicine | DX: G47.33 Obstructive sleep apnea (adult) (pediatric) (principal); G25.81 Restless legs syndrome; E66.9 Obesity, unspecified; Z68.33 Body mass index [BMI] 33.0-33.9, adult | CPT/HCPCS: 99212 ==

== ENCOUNTER 2023-06-13 09:36 | Outpatient (REF) | payer MEDICARE, OTHER, SELFPAY ==
[2023-06-13 11:06] LABS: MANUAL DIFF FLAG NO
[2023-06-13 11:17] LABS: Basophils Percent Auto 0.6 % (0-2); Eosinophils Percent Auto 0.6 % (0-4); Hematocrit 44.9 % (42.0-52.0); Hemoglobin 14.5 g/dl (14.0-18.0); Imm Gran Abs Auto 0.01 X10*3/uL (0.00-0.03); Imm Gran Pct Auto 0.2 % (0.0-0.4); Lymphocytes Absolute Auto 1.5 X10*3/uL (1.2-4.9); Mean Corpuscular HGB Conc 32.3 g/dl (31.0-36.0); Mean Corpuscular Volume 86.7 fL (80.0-98.0); Monocytes Absolute Auto 0.6 X10*3/uL (0.1-1.2); Monocytes Percent Auto 9.5 % (2-11); Neutrophils Absolute Auto 4.1 x10*3/uL (2.0-8.3); Neutrophils Percent Auto 65.1 % (45-73); Platelet Count 199 X10*3/uL (160-400); Red Blood Count 5.18 X10*6/uL (4.60-5.80); Red Cell Distribution Width 13.2 % (11.0-16.0); White Blood Count 6.3 X10*3/uL (4.8-10.8)
[2023-06-13 11:32] LABS: Estimated Average Glucose 212 mg/dL
[2023-06-13 12:41] LABS: Folate 14.2 ng/mL (> or = 4.0); Vitamin B12 499 pg/mL (200-900)
[2023-06-13 12:42] LABS: Alanine Aminotransferase 21 U/L (0-40); Albumin Level 4.4 g/dL (3.5-5.0); Alkaline Phosphatase 58 U/L (39-117); Anion Gap 13 (12-20); Aspartate Amino Transferase 15 U/L (5-37); Bilirubin Total 0.6 mg/dL (0.0-1.0); Blood Urea Nitrogen 27 mg/dL (9-16); Calcium 9.7 mg/dL (8.4-10.2); Carbon Dioxide 27 mmol/L (22-29); Chloride 104 mmol/L (96-108); Cholesterol 135 mg/dL (<200); Estimated Glomerular Filt Rate > 60; Glucose Fasting 128 mg/dL (60-99); HDL Cholesterol 45 mg/dL (>40); LDL Cholesterol Calculated 72 mg/dL (<100); Potassium 4.3 mmol/L (3.3-5.1); Sodium 140 mmol/L (135-145); Total Protein 7.2 g/dL (6.5-8.0); Triglycerides 91 mg/dL (<150)
[2023-06-13 13:02] LABS: Free T4 (Free Thyroxine) 0.88 ng/dL (0.71-1.85); Thyroid Stimulating Hormone 0.09 uIU/mL (0.32-4.0); Vitamin D 25-OH Total 34.7 ng/mL (>30)
[2023-06-13 13:26] LABS: Appearance Urine Clear; Color Urine Yellow; Glucose Urine UA >=1000 mg/dL (Negative); Leukocyte Esterase Urine Negative (Negative); Nitrite Urine Negative (Negative); Specific Gravity - Urine >= 1.030 (1.005-1.025); UMIC TRIGGER UACC YES; Urine Blood Negative (Negative); Urine Ketones Trace mg/dL (Negative); Urine Protein Negative (Neg-Trace)
[2023-06-13 13:33] LABS: Bacteria Urine None Seen (None Seen); Hyaline Casts Urine 0-2 /LPF (0-2); RBC Urine 0-2 /HPF (0-2); Squamous Epithelial Cell Urine 0-2 /HPF (0-2); WBC Urine 0-5 /HPF (0-5)
[2023-06-13 14:14] LABS: Microalbum/Creatinine Ratio Ur 21.5 ug/mg cr (<30)
== END 2023-06-13 09:37 | disposition home or self-care (01) ==
LOC: HO.HMGCLDS 09:36
PROVIDERS: PCP Internal Medicine; Visit Provider Internal Medicine
DX: E78.00 Pure hypercholesterolemia, unspecified (principal); R79.89 Other specified abnormal findings of blood chemistry; E11.9 Type 2 diabetes mellitus without complications; E55.9 Vitamin D deficiency, unspecified; E53.8 Deficiency of other specified B group vitamins; I10 Essential (primary) hypertension; R30.0 Dysuria
CPT/HCPCS: 36415; 80053; 80061; 81001; 82043; 82306; 82570; 82607; 82746; 83036; 84439; 84443; 85025

== ENCOUNTER 2023-06-14 09:53 | Outpatient (AMB) | payer MEDICARE, OTHER, SELFPAY ==
[2023-06-14 09:55] VITALS: BP 122/66; PULSE 85; O2SAT 95; BMI 32.9
--- NOTE | 2023-06-14 09:55 | A.OFFPC_ITS ---
Vital Signs 06/14/23 09:55 Height 5 ft 10 in Weight 229 lb 2 oz BMI 32.9 BP 122/66 Blood Pressure Location Lt brachial Position Sitting Pulse 85 Pulse Source Pulse Oximeter Pulse Oximetry (%) 95 Oxygen Delivery Method Room Air Intake Visit Reasons: 3 MONTH F/U Skidder Loader Required: No Accompanied by: Self / Same As Patient Allergies No Known Allergies Allergy (Verified 06/14/23 10:35) Medication List - Last Reconciled 06/14/23 by Mulugeta Crowder MD aspirin 81 mg PO DAILY blood sugar diagnostic 1 strip miscellaneous TID cholecalciferol (vitamin D3) 25 mcg PO DAILY dapagliflozin propanediol (Farxiga) 10 mg PO DAILY finasteride 5 mg PO DAILY 90 days fluoxetine 40 mg PO DAILY glipizide 10 mg PO DAILY insulin glargine 30 units subcut DAILY lisinopril 40 mg PO DAILY 90 days metformin 1,000 mg PO BID multivitamin (Daily Multi-Vitamin tablet) 1 tab PO DAILY simvastatin 40 mg PO BEDTIME 90 days tadalafil (Cialis) 10 mg PO DAILY 90 days tirzepatide (Mounjaro) 5 mg subcut QWEEK Tobacco use date assessed: 06/14/23 Fall risk assessment: No Falls in past year Last assessed Fall Risk: 06/14/23 Dental Screening Dental Screen Date: 06/14/23 Did you have a dental visit in the last 12 months?: Yes Did you have a dental problem in the last 6 months where you did not have access to dental care?: No Was dental information given to patient?: Patient has dentist HPI 3 MONTH F/U HPI Details Patient comes in today for his follow up visit States that he feels okay He denies any headaches or dizziness Denies any chest pains, no SOB No nausea/vomiting, no abdominal pain No change in bowel habits noted States that he was started on Mounjaro by Dr. Boyce recently Relates that he was started on Requip by Dr. Mcallister last month for his involuntary leg movements and that he took it for a few weeks and felt that it r eally did not help much States that he stopped taking his Ropinirole recently as he does not wish to continue taking what he felt was a lot of medicines Had his follow up labs done last week - to discuss his results [facility] Medical History Restless leg syndrome Obesity (BMI 30-39.9) Depression Panic disorder [episodic paroxysmal anxiety] Anxiety Alcohol abuse, in remission Hypotestosteronism Obstructive sleep apnea Low TSH level Vitamin D deficiency Lumbar degenerative disc disease Benign essential hypertension Pure hypercholesterolemia Proteinuria, unspecified Type 2 diabetes mellitus with other diabetic kidney complication Surgical History Hx of colonoscopy History of removal of cyst Family History Father Medical history unknown Adopted Mother Medical history unknown Adopted Social History Household Members: Spouse Housing: House Alcohol intake: never Patient Tobacco Use Status: Never used Tobacco e-Cigarette/Vaping Use: Never Used Second Hand Smoke Exposure: Yes Substance Use Type: Marijuana service: No Current occupational status: retired Cognitive needs: No Hearing needs: No Vision needs: Yes Questionnaire PHQ-9 Over the last 2 weeks, how often have you been bothered by any of the following problems? 1. Little interest or pleasure in doing things: more than half the days 2. Feeling down, depressed, or hopeless: several days 3. Trouble falling or staying asleep, or sleeping too much: nearly every day 4. Feeling tired or having little energy: more than half the days 5. Poor appetite or overeating: nearly every day 6. Feeling bad about yourself - or that you are a failure or have let yourself or your family down: several days 7. Trouble concentrating on things, such as reading the newspaper or watching television: not at all 8. Moving or speaking so slowly that other people could have noticed. Or the opposite - being so fidgety or restless that you have been moving around a lot more than usual: not at all 9. Thoughts that you would be better off or of hurting yourself in some way: not at all Total score: 12 Depression Screening Interpretation: Positive Depression Screening Follow-up: Existing condition and In treatment Depression Screening Done: Yes 40740 - PHQ-9 Billing: Yes Source: Developed by Drs. Moisés Kwon, Tianna Contreras, Nicola Junior and colleagues, with an educational fernando from [employer]. Thrive Questionnaire Date Thrive assessed: 06/14/23 I am a: Patient What is your living situation today?: I have a steady place to live Within the past 12 months, did the food you bought not last and you didn't have the money to get more?: Never true Within the past 12 months, did you worry whether your food would run out before you got money to buy more?: Never true Do you have trouble paying for medicines?: No Do you have trouble getting transportation to medical appointments?: No Do you have trouble paying your heating and electricity bill?: No Do you have trouble taking care of your child, family member or friend?: No Do you have trouble with day-to-day activities such as bathing, preparing meals, shopping, managing finances, etc.?: No Are you currently unemployed and looking for a job?: No Are you interested in more education?: No Please select the resources that you would like help with: None Currently or been in a relationship where the following occur: no concerns reported AUDIT C Alcohol Use Questionnaire (AUDIT-C) 1. How often do you have a drink containing alcohol?: Never 3. How often do you have six or more drinks on one occasion?: Never Total Score: 0 Score Reviewed/Action Taken: Yes LIU-7 AMB Questionnaire LIU-7 Date LIU - 7 assessed: 06/14/23 Feeling nervous, anxious, or on edge: 1 = Several days Not being able to stop or control worryin = Several days Worrying too much about different things: 2 = More than half the days Trouble relaxin = Not at all Being so restless that it is hard to sit still: 0 = Not at all Becoming easily annoyed or irritable: 2 = More than half the days Feeling afraid as if something awful might happen: 3 = Nearly every day Total LIU-7 score (0-4 normal; 5-9 mild; 10-14 moderate; 15-21 severe): 9 Source: Developed by Drs. Moisés Kwon, Nicola Paige and colleagues, with an educational fernando from [employer]. Review of Systems Const Denies chills, Reports fatigue, Denies fever(s) and Denies headache(s) ENT Denies dysphagia, Denies dizziness, Denies otalgia, Denies headache(s), Denies neck pain, Denies odynophagia and Denies sore throat Card Denies chest pain, Denies rapid heart rate, Denies palpitations and Denies dyspnea Resp Denies cough and Denies dyspnea GI Denies abdominal pain, Denies constipation, Denies dysphagia, Denies heartburn, Denies diarrhea, Denies nausea, Denies odynophagia and Denies vomiting Reports erectile dysfunction, Denies dysuria, Reports nocturia and Reports urinary frequency Musc Reports back pain (on and off, over the lower back) and Denies neck pain Skin/Breast Denies rash Neuro Denies dizziness and Denies headache(s) Psych Reports anxiety, Reports depression and Denies suicidal ideation Endo Reports fatigue and Denies palpitations Physical exam (Primary Care) Vital Signs: Last Vital Signs Pulse 85 06/14/23 09:55 BP 122/66 06/14/23 09:55 Pulse Ox 95 06/14/23 09:55 Oxygen Delivery Method Room Air 06/14/23 09:55 BMI result Body Mass Index 32.9 Tobacco/Smoking Status: Tobacco use Status Tobacco use date assessed 06/14/23 06/14/23 10:01 Patient Tobacco Use Status Never used Tobacco 06/14/23 10:01 e-Cigarette/Vaping Use Never Used 06/14/23 10:01 PHQ-9: PHQ-9 Score PHQ-9: Total score 12 06/14/23 10:01 Depression Screening Interpretation: Positive Depression Screening Follow-up: Existing condition and In treatment Thrive Assessment: Date of Thrive Assessment Date Thrive assessed 06/14/23 06/14/23 10:01 Currently or been in a relationship where the following occur: no concerns reported Const General: no acute distress and alert HENMT Ears: TM's normal bilaterally and EAC's normal Throat: Yes posterior oropharynx normal and Yes tonsils normal (no TP congestion noted) Neck Neck: Yes no lymphadenopathy and Yes supple Resp Auscultation: clear to auscultation bilaterally, no rales and no wheezes Cardio Rate: regular rate Rhythm: regular rhythm Heart sounds: no murmurs GI Palpation (GI): Soft to palpation and nontender Auscultation: normal bowel sounds General: Yes no CVA tenderness Back/Spine/Pelvis Back: no CVA tenderness Thoracic/Lumbar Spine: lumbar spinal tenderness Skin Rashes: no rashes Extrem General: Yes no clubbing, cyanosis or edema Results Reviewed Results Reviewed: Laboratory Tests 06/13/23 06/13/23 06/13/23 09:45 09:45 09:48 WBC 6.3 Hgb 14.5 Hct 44.9 Plt Count 199 Sodium 140 Potassium 4.3 Creatinine 0.79 Estimated GFR > 60 Fasting Glucose 128 H Hemoglobin A1c % 9.0 H Calcium AST ALT Triglycerides Cholesterol LDL Cholesterol, Calc HDL Cholesterol Vitamin B12 499 25-OH Vitamin D Total TSH Free T4 Ur Specific [place] Urine Protein Urine Glucose (UA) Urine Blood Urine Nitrite Ur Leukocyte Esterase Microalb/Creat Ratio 06/13/23 06/13/23 06/13/23 09:48 09:48 09:50 WBC Hgb Hct Plt Count Sodium Potassium Creatinine Estimated GFR Fasting Glucose Hemoglobin A1c % Calcium 9.7 AST 15 ALT 21 Triglycerides 91 Cholesterol 135 LDL Cholesterol, Calc 72 HDL Cholesterol 45 Vitamin B12 25-OH Vitamin D Total 34.7 TSH 0.09 L Free T4 0.88 Ur Specific [place] >= 1.030 H Urine Protein Negative Urine Glucose (UA) >=1000 H Urine Blood Negative Urine Nitrite Negative Ur Leukocyte Esterase Negative Microalb/Creat Ratio 21.5 Assessment and Plan Assessment & Plan (1) Type 2 diabetes mellitus with other diabetic kidney complication: Code(s): E11.29 - Type 2 diabetes mellitus with other diabetic kidney complication Plan: HgbA1c was at 9.0% on his labs done last week (was at 9.3% a few months ago) - goal is < 7.0% Reinforced diabetic diet Continue Metformin 1000 mg BID, Glipizide 10 mg QD, Farxiga 10 mg QD and Basaglar 30 units Q PM He was again recently switched from Ozempic to Mounjaro by Dr. Boyce recently and is now on Mounjaro 5 mg SQ once a week Follow up with ict sales representative at [facility] and with endocrinology (Dr. Boyce) as scheduled (2) Proteinuria, unspecified: Code(s): R80.9 - Proteinuria, unspecified Qualifiers: Proteinuria type: unspecified Qualified Code(s): R80.9 - Proteinuria, unspecified Plan: Stable - will continue to monitor his renal function regularly (3) Pure hypercholesterolemia: Code(s): E78.00 - Pure hypercholesterolemia, unspecified Plan: Results of his labs done last week reviewed and discussed with patient Reinforced low cholesterol diet Continue Simvastatin 40 mg QD Will recheck his labs and fasting lipids in 3 months for follow up (4) Benign essential hypertension: Code(s): I10 - Essential (primary) hypertension Plan: Reinforced low sodium diet - goal is BP of 120/80 mm or less Continue Lisinopril 40 mg QD (5) Lumbar degenerative disc disease: Code(s): M51.36 - Other intervertebral disc degeneration, lumbar region Plan: Reinforced activity and weight lifting restrictions Follow-up with [facility] as scheduled Continue ibuprofen 800 mg 3 times a day with food as needed for pain (6) Vitamin D deficiency: Code(s): E55.9 - Vitamin D deficiency, unspecified Plan: Continue Vitamin D3 1000 units QD (7) Low TSH level: Code(s): R79.89 - Other specified abnormal findings of blood chemistry Plan: Patient is currently clinically euthyroid and his free T4 level remains normal on his recent labs Will continue to monitor his TFTs regularly (8) Obstructive sleep apnea: Comment: LONGSTANDING HISTORY OF OBSTRUCTIVE SLEEP APNEA. CURRENT NEW CPAP DEVICE IS WORKING VERY WELL AND HE IS HAPPY WITH ITS USE. ( FF MASK AND PRESSURE =13 CMs ) Code(s): G47.33 - Obstructive sleep apnea (adult) (pediatric) Plan: Continue using his CPAP device daily when sleeping at night - he now has a new device (replacing his old one) Repeat sleep study done in December 2022 revealed (+) severe sleep apnea, mostly obstructive, with increased severity in REM sleep Was started on Ropinirole by Dr. Mcallister last month for his leg movements but felt that the Rx did not really help much and he self-docontinued this a few days ago Follow up with Sleep Medicine as scheduled (9) Hypotestosteronism: Code(s): E34.9 - Endocrine disorder, unspecified Plan: Improved - serum testosterone level was normal when checked a couple of years ago; will continue to monitor every now and then (10) Erectile dysfunction: Code(s): N52.9 - Male erectile dysfunction, unspecified Qualifiers: Erectile dysfunction type: unspecified Qualified Code(s): N52.9 - Male erectile dysfunction, unspecified Plan: Continue Finasteride 5 mg QD and Tadalafil 10 mg QD Follow up with urology as scheduled (11) Urinary frequency: Code(s): R35.0 - Frequency of micturition Plan: Most due to BPH but advised again that this can be also be partly due to hyperglycemia Continue Tadalafil 10 mg QD and Finasteride 5 mg QD (12) Alcohol abuse, in remission: Code(s): F10.11 - Alcohol abuse, in remission Plan: States that he has been completely sober for over 2 years now Encouraged to continue maintaining his sobriety Follow up with AA as scheduled (13) Anxiety: Code(s): F41.9 - Anxiety disorder, unspecified Plan: States that Fluoxetine is helping with his anxiety symptoms (14) Depression: Code(s): F32.9 - Major depressive disorder, single episode, unspecified Qualifiers: Depression Type: major depressive disorder Major depression recurrence: recurrent Active/Remission status: currently active Major depression episode severity: unspecified Qualified Code(s): F33.9 - Major depressive disorder, recurrent, unspecified Plan: Continue Fluoxetine 40 mg QD Follow-up with Psychiatry as scheduled (15) Obesity (BMI 30-39.9): Comment: PATIENT IS MODERATELY OBESE, HE IS AWARE OF THIS ISSUE. HAS NOT BEEN ABLE TO LOSE MUCH WEIGHT. HE IS INSTRUCTED ABOUT. DIET AND IMPORTANCE OF EXERCISE Code(s): E66.9 - Obesity, unspecified Plan: Reinforced diet/exercise as tolerated/ lose weight Plan Follow up in 3 months Orders: Orders [facility]. Panel Fast 3 Months E78.00 - Pure hypercholesterolemia, unspecified TSH reflex Free T4 3 Months E78.00 - Pure hypercholesterolemia, unspecified Vitamin D 25-OH Total 3 Months E55.9 - Vitamin D deficiency, unspecified Complete Blood Count Auto Diff 3 Months I10 - Essential (primary) hypertension Lipid Panel 3 Months E78.00 - Pure hypercholesterolemia, unspecified UA CC w/rflx Micro + Cult 3 Months R30.0 - Dysuria Microalbumin, Random (w Creat) 3 Months E11.9 - Type 2 diabetes mellitus without complications Vitamin B12 and Folate 3 Months E53.8 - Deficiency of other specified B group vitamins Hemoglobin A1c 3 Months E11.9 - Type 2 diabetes mellitus without complications Coding Level of Care Code Est Pt Level 4 (55603) Diagnoses Type 2 diabetes mellitus with other diabetic kidney complication E11.29 Proteinuria, unspecified type R80.9 Proteinuria type: unspecified Pure hypercholesterolemia E78.00 Benign essential hypertension I10 Lumbar degenerative disc disease M51.36 Vitamin D deficiency E55.9 Low TSH level R79.89 Obstructive sleep apnea G47.33 Hypotestosteronism E34.9 Erectile dysfunction, unspecified erectile dysfunction type N52.9 Erectile dysfunction type: unspecified Urinary frequency R35.0 Alcohol abuse, in remission F10.11 Anxiety F41.9 Episode of recurrent major depressive disorder, unspecified depression episode severity F33.9 Depression Type: major depressive disorder Major depression recurrence: recurrent Active/Remission status: currently active Major depression episode severity: unspecified Obesity (BMI 30-39.9) E66.9
== END 2023-06-14 10:47 | disposition home or self-care (01) ==
PROVIDERS: PCP Internal Medicine; Visit Provider Internal Medicine
DX: E11.29 Type 2 diabetes mellitus with other diabetic kidney complication (principal); F33.9 Major depressive disorder, recurrent, unspecified; Z68.32 Body mass index [BMI] 32.0-32.9, adult; E66.9 Obesity, unspecified; I10 Essential (primary) hypertension; R80.9 Proteinuria, unspecified; E78.00 Pure hypercholesterolemia, unspecified; M51.36 Other intervertebral disc degeneration, lumbar region; E55.9 Vitamin D deficiency, unspecified; R79.89 Other specified abnormal findings of blood chemistry; G47.33 Obstructive sleep apnea (adult) (pediatric); E34.9 Endocrine disorder, unspecified
CPT/HCPCS: 99214

== ENCOUNTER 2023-09-13 06:53 | Outpatient (REF) | payer MEDICARE, OTHER, SELFPAY ==
[2023-09-13 07:16] LABS: MANUAL DIFF FLAG NO
[2023-09-13 07:53] LABS: Estimated Average Glucose 194 mg/dL; Hemoglobin A1c % 8.4 % (<6.0)
[2023-09-13 07:55] LABS: Basophils Percent Auto 0.7 % (0-2); Eosinophils Absolute Auto 0.1 X10*3/uL (0.0-0.4); Eosinophils Percent Auto 1.7 % (0-4); Hemoglobin 15.4 g/dl (14.0-18.0); Imm Gran Abs Auto 0.01 X10*3/uL (0.00-0.03); Imm Gran Pct Auto 0.2 % (0.0-0.4); Lymphocytes Absolute Auto 1.5 X10*3/uL (1.2-4.9); Lymphocytes Percent Auto 25.3 % (20-40); Mean Corpuscular HGB Conc 32.8 g/dl (31.0-36.0); Mean Corpuscular Hemoglobin 28.1 pg (27.0-33.0); Mean Corpuscular Volume 85.8 fL (80.0-98.0); Mean Platelet Volume 10.4 fL (9.4-12.4); Monocytes Absolute Auto 0.6 X10*3/uL (0.1-1.2); Monocytes Percent Auto 9.7 % (2-11); Neutrophils Absolute Auto 3.7 x10*3/uL (2.0-8.3); Neutrophils Percent Auto 62.4 % (45-73); Platelet Count 198 X10*3/uL (160-400); Red Blood Count 5.48 X10*6/uL (4.60-5.80); Red Cell Distribution Width 13.2 % (11.0-16.0)
[2023-09-13 08:15] LABS: Alanine Aminotransferase 21 U/L (0-40); Albumin Level 4.3 g/dL (3.5-5.0); Alkaline Phosphatase 60 U/L (39-117); Anion Gap 12 (12-20); Aspartate Amino Transferase 17 U/L (5-37); Bilirubin Total 0.8 mg/dL (0.0-1.0); Blood Urea Nitrogen 27 mg/dL (9-16); Calcium 9.8 mg/dL (8.4-10.2); Carbon Dioxide 28 mmol/L (22-29); Chloride 101 mmol/L (96-108); Cholesterol 126 mg/dL (<200); Estimated Glomerular Filt Rate > 60; Glucose Fasting 163 mg/dL (60-99); HDL Cholesterol 49 mg/dL (>40); LDL Cholesterol Calculated 62 mg/dL (<100); Potassium 4.2 mmol/L (3.3-5.1); Sodium 137 mmol/L (135-145); Total Protein 7.3 g/dL (6.5-8.0); Triglycerides 79 mg/dL (<150)
[2023-09-13 08:22] LABS: Appearance Urine Clear; Color Urine Yellow; Glucose Urine UA >=1000 mg/dL (Negative); Leukocyte Esterase Urine Negative (Negative); Nitrite Urine Negative (Negative); Specific Gravity - Urine >= 1.030 (1.005-1.025); UMIC TRIGGER UACC YES; Urine Blood Negative (Negative); Urine Ketones 15 mg/dL (Negative); Urine Protein Negative (Neg-Trace)
[2023-09-13 08:36] LABS: TSH reflex Free T4 0.24 uIU/mL (0.32-4.0); Vitamin D 25-OH Total 37.6 ng/mL (>30)
[2023-09-13 08:41] LABS: Folate 13.1 ng/mL (> or = 4.0); Vitamin B12 550 pg/mL (200-900)
[2023-09-13 08:46] LABS: Creatinine Urine 108.42 mg/dL; Microalbum/Creatinine Ratio Ur 22.1 ug/mg cr (<30)
[2023-09-13 08:51] LABS: Bacteria Urine None Seen (None Seen); Hyaline Casts Urine 0-2 /LPF (0-2); RBC Urine 0-2 /HPF (0-2); Squamous Epithelial Cell Urine 0-2 /HPF (0-2); WBC Urine 0-5 /HPF (0-5)
[2023-09-13 09:24] LABS: Free T4 (Free Thyroxine) 0.93 ng/dL (0.71-1.85)
== END 2023-09-13 06:54 | disposition home or self-care (01) ==
LOC: HO.LAB 06:53
PROVIDERS: PCP Internal Medicine; Visit Provider Internal Medicine
DX: E78.00 Pure hypercholesterolemia, unspecified (principal); E55.9 Vitamin D deficiency, unspecified; E11.9 Type 2 diabetes mellitus without complications; E53.8 Deficiency of other specified B group vitamins; I10 Essential (primary) hypertension
CPT/HCPCS: 36415; 80053; 80061; 81001; 82043; 82306; 82570; 82607; 82746; 83036; 84439; 84443; 85025

== ENCOUNTER 2023-09-14 09:25 | Outpatient (AMB) | payer MEDICARE, OTHER, SELFPAY ==
[2023-09-14 09:31] VITALS: BP 130/62; PULSE 88; O2SAT 97; BMI 30.8
--- NOTE | 2023-09-14 09:31 | MHC.PC.OV ---
Vital Signs 09/14/23 09:31 Height 5 ft 10 in Weight 215 lb BMI 30.8 BP 130/62 Blood Pressure Location Lt brachial Position Sitting Pulse 88 Pulse Source Pulse Oximeter Pulse Oximetry (%) 97 Oxygen Delivery Method Room Air Intake Visit Reasons: DM, hyperlipidemia, HTN Intake Note: Patient is here to follow up on DM, hyperlipidemia, HTN Medical Coding Technician Required: No Allergies No Known Allergies Allergy (Verified 09/14/23 09:57) Medication List - Last Reconciled 09/14/23 by Mulugeta Crowder MD aspirin 81 mg PO DAILY blood sugar diagnostic 1 strip miscellaneous TID cholecalciferol (vitamin D3) 25 mcg PO DAILY dapagliflozin propanediol (Farxiga) 10 mg PO DAILY finasteride 5 mg PO DAILY 90 days fluoxetine 40 mg PO DAILY glipizide 10 mg PO DAILY insulin glargine 30 units subcut DAILY lisinopril 40 mg PO DAILY 90 days metformin 1,000 mg PO BID multivitamin (Daily Multi-Vitamin tablet) 1 tab PO DAILY simvastatin 40 mg PO BEDTIME 90 days tadalafil (Cialis) 10 mg PO DAILY 90 days tirzepatide (Mounjaro) 5 mg subcut QWEEK Tobacco use date assessed: 09/14/23 Fall risk assessment: No Falls in past year Last assessed Fall Risk: 09/14/23 Dental Screening Dental Screen Date: 06/14/23 Did you have a dental visit in the last 12 months?: Yes Did you have a dental problem in the last 6 months where you did not have access to dental care?: No Was dental information given to patient?: Patient has dentist HPI DM, hyperlipidemia, HTN HPI Details Patient comes in today for his follow up visit States that he currently feels okay He denies any headaches or dizziness Denies any chest pains, no SOB No nausea/vomiting, no abdominal pain No change in bowel habits noted States that he was started on Mounjaro by Dr. Boyce about 3 months ago and since then, he has noticed a significant decrease in his appetite and craving for foods He has lost a lot of weight lately as a result and also noted that he now has to get up only once at night at the most (used to get up at least 3 to 4 times a night) to use the bathroom Had his follow up labs done yesterday - to discuss his results [facility] Medical History Restless leg syndrome Obesity (BMI 30-39.9) Depression Panic disorder [episodic paroxysmal anxiety] Anxiety Alcohol abuse, in remission Hypotestosteronism Obstructive sleep apnea Low TSH level Vitamin D deficiency Lumbar degenerative disc disease Benign essential hypertension Pure hypercholesterolemia Proteinuria, unspecified Type 2 diabetes mellitus with other diabetic kidney complication Surgical History Hx of colonoscopy History of removal of cyst Family History Father Medical history unknown Adopted Mother Medical history unknown Adopted Social History Household Members: Spouse Housing: House Alcohol intake: never Patient Tobacco Use Status: Never used Tobacco e-Cigarette/Vaping Use: Never Used Second Hand Smoke Exposure: Yes Substance Use Type: Marijuana service: No Current occupational status: retired Cognitive needs: No Hearing needs: No Vision needs: Yes Questionnaire Thrive Questionnaire Date Thrive assessed: 06/14/23 AUDIT C Alcohol Use Questionnaire (AUDIT-C) 1. How often do you have a drink containing alcohol?: Never 3. How often do you have six or more drinks on one occasion?: Never Total Score: 0 Score Reviewed/Action Taken: Yes LIU-7 AMB Questionnaire LIU-7 Date LIU - 7 assessed: 06/14/23 Source: Developed by Drs. Moisés Kwon, Tianna Contreras, Nicola Junior and colleagues, with an educational fernando from [employer]. Review of Systems Const Denies chills, Denies fatigue, Denies fever(s) and Denies headache(s) ENT Denies dysphagia, Denies dizziness, Denies otalgia, Denies headache(s), Denies neck pain, Denies odynophagia and Denies sore throat Card Denies chest pain, Denies rapid heart rate, Denies palpitations and Denies dyspnea Resp Denies cough and Denies dyspnea GI Denies abdominal pain, Denies constipation, Denies dysphagia, Denies heartburn, Denies diarrhea, Denies nausea, Denies odynophagia and Denies vomiting Denies difficulty urinating, Reports erectile dysfunction, Denies dysuria, Denies nocturia and Denies urinary frequency Musc Reports back pain (on and off, over the lower back) and Denies neck pain Skin/Breast Denies rash Neuro Denies dizziness and Denies headache(s) Psych Reports anxiety, Reports depression and Denies suicidal ideation Endo Denies fatigue and Denies palpitations Physical exam (Primary Care) Vital Signs: Last Vital Signs Pulse 88 09/14/23 09:31 BP 130/62 09/14/23 09:31 Pulse Ox 97 09/14/23 09:31 Oxygen Delivery Method Room Air 09/14/23 09:31 BMI result Body Mass Index 30.8 Tobacco/Smoking Status: Tobacco use Status Tobacco use date assessed 09/14/23 09/14/23 09:32 Patient Tobacco Use Status Never used Tobacco 09/14/23 09:32 e-Cigarette/Vaping Use Never Used 09/14/23 09:32 Thrive Assessment: Date of Thrive Assessment Date Thrive assessed 06/14/23 09/14/23 09:32 Const General: no acute distress and alert HENMT Ears: TM's normal bilaterally and EAC's normal Throat: Yes posterior oropharynx normal and Yes tonsils normal (no TP congestion noted) Neck Neck: Yes no lymphadenopathy and Yes supple Resp Auscultation: clear to auscultation bilaterally, no rales and no wheezes Cardio Rate: regular rate Rhythm: regular rhythm Heart sounds: no murmurs GI Palpation (GI): Soft to palpation and nontender Auscultation: normal bowel sounds General: Yes no CVA tenderness Back/Spine/Pelvis Back: no CVA tenderness Thoracic/Lumbar Spine: lumbar spinal tenderness (mild) Skin Rashes: no rashes Extrem General: Yes no clubbing, cyanosis or edema Results Reviewed Results Reviewed: Laboratory Tests 09/13/23 09/13/23 07:10 07:14 WBC 6.0 Hgb 15.4 Hct 47.0 Plt Count 198 Sodium 137 Potassium 4.2 Creatinine 0.82 Estimated GFR > 60 Fasting Glucose 163 H Hemoglobin A1c % 8.4 H Calcium 9.8 AST 17 ALT 21 Triglycerides 79 Cholesterol 126 LDL Cholesterol, Calc 62 HDL Cholesterol 49 Vitamin B12 550 25-OH Vitamin D Total 37.6 TSH 0.24 L Free T4 0.93 Ur Specific [place] >= 1.030 H Urine Protein Negative Urine Glucose (UA) >=1000 H Urine Blood Negative Urine Nitrite Negative Ur Leukocyte Esterase Negative Microalb/Creat Ratio 22.1 Assessment and Plan Assessment & Plan (1) Type 2 diabetes mellitus with other diabetic kidney complication: Code(s): E11.29 - Type 2 diabetes mellitus with other diabetic kidney complication Plan: His HgbA1c was at 8.4% on his labs done yesterday (was at 9.0% a few months ago) - goal is < 7.0% Reinforced diabetic diet Continue Metformin 1000 mg BID, Glipizide 10 mg QD, Farxiga 10 mg QD and Basaglar 30 units Q PM Continue Mounjaro 5 mg SQ once a week Follow up with strategic buyer at [facility] and with endocrinology (Dr. Boyce) as scheduled (2) Proteinuria, unspecified: Code(s): R80.9 - Proteinuria, unspecified Qualifiers: Proteinuria type: unspecified Qualified Code(s): R80.9 - Proteinuria, unspecified Plan: This appears to have resolved as his recent urinalysis revealed NO proteins in his urine Will continue to monitor his renal function regularly (3) Pure hypercholesterolemia: Code(s): E78.00 - Pure hypercholesterolemia, unspecified Plan: Results of his labs done yesterday reviewed and discussed with patient Reinforced low cholesterol diet Continue Simvastatin 40 mg QD Will recheck his labs and fasting lipids in 4 months for follow up (4) Benign essential hypertension: Code(s): I10 - Essential (primary) hypertension Plan: Reinforced low sodium diet - goal is BP of 120/80 mm or less Continue Lisinopril 40 mg QD (5) Lumbar degenerative disc disease: Code(s): M51.36 - Other intervertebral disc degeneration, lumbar region Plan: Reinforced activity and weight lifting restrictions Follow-up with [facility] as scheduled Continue Ibuprofen 800 mg 3 times a day with food as needed for pain (6) Vitamin D deficiency: Code(s): E55.9 - Vitamin D deficiency, unspecified Plan: Continue Vitamin D3 1000 units QD (7) Low TSH level: Code(s): R79.89 - Other specified abnormal findings of blood chemistry Plan: Patient is currently clinically euthyroid and his free T4 level remains normal on his recent labs Will continue to monitor his TFTs regularly (8) Obstructive sleep apnea: Comment: LONGSTANDING HISTORY OF OBSTRUCTIVE SLEEP APNEA. CURRENT NEW CPAP DEVICE IS WORKING VERY WELL AND HE IS HAPPY WITH ITS USE. ( FF MASK AND PRESSURE =13 CMs ) Code(s): G47.33 - Obstructive sleep apnea (adult) (pediatric) Plan: Continue using his CPAP device daily when sleeping at night - he now has a new device (replacing his old one) Repeat sleep study done in December 2022 revealed (+) severe sleep apnea, mostly obstructive, with increased severity in REM sleep Was started on Ropinirole by Dr. Mcallister last month for his leg movements but felt that the Rx did not really help much and he self-docontinued this a few days ago Follow up with Sleep Medicine as scheduled (9) Hypotestosteronism: Code(s): E34.9 - Endocrine disorder, unspecified Plan: Improved - serum testosterone level was normal when checked a couple of years ago; will continue to monitor every now and then (10) Erectile dysfunction: Code(s): N52.9 - Male erectile dysfunction, unspecified Qualifiers: Erectile dysfunction type: unspecified Qualified Code(s): N52.9 - Male erectile dysfunction, unspecified Plan: Continue Finasteride 5 mg QD and Tadalafil 10 mg QD Follow up with urology as scheduled (11) Urinary frequency: Code(s): R35.0 - Frequency of micturition Plan: Improved - advised that this was likely due to a combination of his prostate issues and his hyperglycemia, both of which are now better controlled Continue Tadalafil 10 mg QD and Finasteride 5 mg QD (12) Alcohol abuse, in remission: Code(s): F10.11 - Alcohol abuse, in remission Plan: States that he has been completely sober for over 2 years now Encouraged to continue maintaining his sobriety Follow up with AA as scheduled (13) Anxiety: Code(s): F41.9 - Anxiety disorder, unspecified Plan: States that Fluoxetine is helping with his anxiety symptoms (14) Depression: Code(s): F32.9 - Major depressive disorder, single episode, unspecified Qualifiers: Depression Type: major depressive disorder Major depression recurrence: recurrent Active/Remission status: currently active Major depression episode severity: unspecified Qualified Code(s): F33.9 - Major depressive disorder, recurrent, unspecified Plan: Continue Fluoxetine 40 mg QD Follow-up with Psychiatry as scheduled (15) Obesity (BMI 30-39.9): Comment: PATIENT IS MODERATELY OBESE, HE IS AWARE OF THIS ISSUE. HAS NOT BEEN ABLE TO LOSE MUCH WEIGHT. HE IS INSTRUCTED ABOUT. DIET AND IMPORTANCE OF EXERCISE Code(s): E66.9 - Obesity, unspecified Plan: Reinforced diet/exercise as tolerated/ lose weight - he has lost a lot of weight since his last visit, likely partly due to the effects of his Mounjaro Plan Follow up in 4 months Orders: Orders Complete Blood Count Auto Diff 4 Months D64.9 - Anemia, unspecified Lipid Panel 4 Months E78.00 - Pure hypercholesterolemia, unspecified UA CC w/rflx Micro + Cult 4 Months R30.0 - Dysuria Comprehensive [place]. Panel Fast 4 Months E78.00 - Pure hypercholesterolemia, unspecified Hemoglobin A1c 4 Months E11.9 - Type 2 diabetes mellitus without complications Microalbumin, Random (w Creat) 4 Months E11.9 - Type 2 diabetes mellitus without complications TSH reflex Free T4 4 Months E78.00 - Pure hypercholesterolemia, unspecified Vitamin D 25-OH Total 4 Months E55.9 - Vitamin D deficiency, unspecified Coding Level of Care Code Est Pt Level 4 (57901) Diagnoses Type 2 diabetes mellitus with other diabetic kidney complication E11.29 Proteinuria, unspecified type R80.9 Proteinuria type: unspecified Pure hypercholesterolemia E78.00 Benign essential hypertension I10 Lumbar degenerative disc disease M51.36 Vitamin D deficiency E55.9 Low TSH level R79.89 Obstructive sleep apnea G47.33 Hypotestosteronism E34.9 Erectile dysfunction, unspecified erectile dysfunction type N52.9 Erectile dysfunction type: unspecified Urinary frequency R35.0 Alcohol abuse, in remission F10.11 Anxiety F41.9 Episode of recurrent major depressive disorder, unspecified depression episode severity F33.9 Depression Type: major depressive disorder Major depression recurrence: recurrent Active/Remission status: currently active Major depression episode severity: unspecified Obesity (BMI 30-39.9) E66.9
== END 2023-09-14 10:08 | disposition home or self-care (01) ==
PROVIDERS: PCP Internal Medicine; Visit Provider Internal Medicine
DX: E11.29 Type 2 diabetes mellitus with other diabetic kidney complication (principal); R80.9 Proteinuria, unspecified; E78.00 Pure hypercholesterolemia, unspecified; I10 Essential (primary) hypertension; M51.36 Other intervertebral disc degeneration, lumbar region; E55.9 Vitamin D deficiency, unspecified; R79.89 Other specified abnormal findings of blood chemistry; G47.33 Obstructive sleep apnea (adult) (pediatric); E34.9 Endocrine disorder, unspecified; N52.9 Male erectile dysfunction, unspecified; R35.0 Frequency of micturition; F10.11 Alcohol abuse, in remission
CPT/HCPCS: 99214

== ENCOUNTER 2023-10-14 06:35 | Outpatient (REF) | payer MEDICARE, OTHER, SELFPAY ==
[2023-10-14 11:46] LABS: Prostate Specific Antigen 1.18 ng/mL (<0.05-4.0)
== END 2023-10-14 06:36 | disposition home or self-care (01) ==
LOC: HO.HMGCLDS 06:35
PROVIDERS: Nurse Practitioner Family; PCP Internal Medicine; Visit Provider Internal Medicine
DX: Z12.5 Encounter for screening for malignant neoplasm of prostate (principal); N40.0 Benign prostatic hyperplasia without lower urinary tract symptoms
CPT/HCPCS: 36415; 84153

== ENCOUNTER 2023-10-17 09:31 | Outpatient (AMB) | payer MEDICARE, OTHER, SELFPAY ==
--- NOTE | 2023-10-17 09:36 | MHC.OFFVIS ---
Intake Visit Reasons: 1y/PSA Intake Note: Patient is present for follow up PSA Urology Medications: finasteride, tadalafil Blood Thinner: Aspirin Grazing Examiner Required: No Accompanied by: Self / Same As Patient Allergies No Known Allergies Allergy (Verified 10/17/23 20:45) Medication List - Last Reconciled 10/17/23 by BARRY Haque- aspirin 81 mg PO DAILY blood sugar diagnostic 1 strip miscellaneous TID cholecalciferol (vitamin D3) 25 mcg PO DAILY dapagliflozin propanediol (Farxiga) 10 mg PO DAILY finasteride 5 mg PO DAILY 90 days fluoxetine 40 mg PO DAILY glipizide 10 mg PO DAILY insulin glargine 30 units subcut DAILY lisinopril 40 mg PO DAILY 90 days metformin 1,000 mg PO BID multivitamin (Daily Multi-Vitamin tablet) 1 tab PO DAILY simvastatin 40 mg PO BEDTIME 90 days tadalafil (Cialis) 10 mg PO DAILY 90 days tirzepatide (Mounjaro) 5 mg subcut QWEEK tirzepatide (Mounjaro) mg subcut HPI Comments Details: Maximus Gonzales is a pleasant 68-year-old male patient of Dr. Crowder. He presents to the office today for follow-up. In discussion with the patient today reports to be doing and feeling well. He reports compliance with 5 mg of finasteride daily as well as 10 mg of Cialis daily. He reports to be happy with current voiding parameters. He currently denies any bothersome urinary issues or concerns. Recent PSA results reviewed with the patient today. As noted and trended below. Previous workup has included a retroperitoneal ultrasound noting bilateral renal cysts noted. Pre void bladder volume 200 mL. Postvoid bladder volume 10 mL. The bladder wall appears irregular. Prostate gland measures approximately 62 mL. PSA's are as follows: 0.9, 03/06 1.3, 08/09 1.5, 06/05 2.1, 09/25 2.9, 10/26 1.2 When asked he continues to reports Cialis to be working well. He reports nocturia has decreased from 4 times per night to once a night. He discusses noting correlation of elevated blood sugars and lower urinary tract symptoms. Discussed and stressed at length the importance of continuing to manage diabetes for improvement in lower urinary tract symptoms as well as overall health and well-being. In review of patient's chart it appears A1c from 08/25 10.2, 02/25 9.3, 06/28 9.0, 09/26 8.4. In office urinalysis results reviewed with the patient today. He otherwise denies urinary urgency, urinary frequency, incontinence, hematuria, dysuria, foul smelling urine, changes to urinary stream, flank pain, fever, and or chills. [facility] Medical History Restless leg syndrome Obesity (BMI 30-39.9) Depression Panic disorder [episodic paroxysmal anxiety] Anxiety Alcohol abuse, in remission Hypotestosteronism Obstructive sleep apnea Low TSH level Vitamin D deficiency Lumbar degenerative disc disease Benign essential hypertension Pure hypercholesterolemia Proteinuria, unspecified Type 2 diabetes mellitus with other diabetic kidney complication Surgical History Hx of colonoscopy History of removal of cyst Family History Father Medical history unknown Adopted Mother Medical history unknown Adopted Social History Household Members: Spouse Housing: House Alcohol intake: never Patient Tobacco Use Status: Never used Tobacco e-Cigarette/Vaping Use: Never Used Second Hand Smoke Exposure: Yes Substance Use Type: Marijuana service: No Current occupational status: retired Cognitive needs: No Hearing needs: No Vision needs: Yes Review of Systems Const Reports as per HPI Eyes Reports no additional complaints ENT Reports no additional complaints Card Reports no additional complaints Resp Reports no additional complaints GI Reports no additional complaints Reports as per HPI Musc Reports no additional complaints Neuro Reports no additional complaints Psych Reports no additional complaints Endo Reports as per HPI James/Lymph Reports no additional complaints Physical Exam Const General: cooperative, healthy appearing, comfortable, no acute distress, well developed, alert and awake Nutritional Appearance: overweight Orientation/consciousness: patient oriented x3 Limitations: no limitations HEENT Head: Yes normal to inspection, Yes normocephalic and Yes atraumatic Ears: hearing grossly normal bilaterally Eyes General: appearance normal, both eyes and all related structures Neck Neck: Yes normal visual inspection and Yes trachea midline Chest Chest palpation & inspection: normal inspection of the chest Resp Effort & Inspection: normal respiratory effort and able to speak in complete sentences Cardio Rate: regular rate GI Inspection: Yes normal to inspection General: Yes no CVA tenderness Back/Spine/Pelvis Back: no CVA tenderness Skin General skin exam: no rashes or lesions noted Neuro General: patient oriented x3 Extrem General: Yes normal to inspection Psych Appearance: grossly normal and well kempt Mental Status: mental status grossly normal Speech and movement: Normal speech and movement present and Clear speech present Affect: normal affect Attitude: cooperative Thought process: Normal thought process present Thought content: Normal thought content present Insight: Fair insight present (Psych) Judgement: Fair judgement present (Psych) Results AMB Urinalysis, Automated UA Leukoctes 0 Tip/uL Last Edit by [employer] on 10/17/23 09:48 UA Nitrite Negative Last Edit by [employer] on 10/17/23 09:48 UA Urobilinogen 0.2 mg/dL Last Edit by [employer] on 10/17/23 09:48 UA Protein 15 mg/dL Last Edit by [employer] on 10/17/23 09:48 UA pH 6.0 Last Edit by [employer] on 10/17/23 09:48 UA Blood 0 [place]/uL Last Edit by [employer] on 10/17/23 09:48 UA Specific [place] 1.015 Last Edit by [employer] on 10/17/23 09:48 UA Ketone Negative Last Edit by [employer] on 10/17/23 09:48 UA Bilirubin 0 mg/dL Last Edit by [employer] on 10/17/23 09:48 UA Glucose 1000 mg/dL Last Edit by [employer] on 10/17/23 09:48 Results Reviewed Results Reviewed: Laboratory Last Values Urine pH (Auto) 6.0 10/17/23 09:41 Specific [place] (Auto) 1.015 10/17/23 09:41 Urine Protein (Auto) 15 mg/dL 10/17/23 09:41 Glucose (UA)(Auto) 1000 mg/dL 10/17/23 09:41 Urine Ketones (Auto) Negative 10/17/23 09:41 Urine Blood (Auto) 0 [place]/uL 10/17/23 09:41 Urine Nitrite (Auto) Negative 10/17/23 09:41 Urine Bilirubin (Auto) 0 mg/dL 10/17/23 09:41 Urine Urobilinogen (Auto) 0.2 mg/dL 10/17/23 09:41 Leukocyte Esterase (Auto) 0 Tip/uL 10/17/23 09:41 Assessment & Plan Assessment & Plan (1) Bladder wall thickening: Code(s): N32.89 - Other specified disorders of bladder Category: Medical (2) Enlarged prostate: Code(s): N40.0 - Benign prostatic hyperplasia without lower urinary tract symptoms Category: Medical (3) Erectile dysfunction associated with type 2 diabetes mellitus: Code(s): E11.69 - Type 2 diabetes mellitus with other specified complication; N52.1 - Erectile dysfunction due to diseases classified elsewhere Category: Medical (4) BPH (benign prostatic hyperplasia): Code(s): N40.0 - Benign prostatic hyperplasia without lower urinary tract symptoms Category: Medical (5) Nocturia: Code(s): R35.1 - Nocturia Category: Medical Plan In office urinalysis results reviewed with the patient today; as noted above. Continue Cialis 10 mg daily as well as finasteride as discussed and prescribed; refills provided. Recent PSA results reviewed with the patient today; as noted above. Discussed, educated, and stressed the importance of managing diabetes for improvement in urinary/urological issues as well as overall health and well-being. Discussed adequate sleep/healthy eating habits/weight loss/ and exercise/brisk walking to assist with improvement in erectile dysfunction as well as for overall health and well-being. Follow-up in 1 year with PSA to be completed prior; or sooner with any issues, concerns, and or questions. Orders: Orders AMB Urinalysis Automated Today Z13.9 - Encounter for screening, unspecified Prostate Specific Antigen 1 Year N40.0 - Benign prostatic hyperplasia without lower urinary tract symptoms Medications: Refilled finasteride 5 mg PO DAILY 90 days 90 tabs 3RF N40.0 - Benign prostatic hyperplasia without lower urinary tract symptoms tadalafil (Cialis) daily medication for urination 10 mg PO DAILY 90 days 90 tabs 2RF sexual activity Patient Instructions: The patient had an opportunity to ask questions regarding the treatment plan. All questions were answered. Physical exam, labs, and imaging were discussed and reviewed in detail. As well as risks, benefits, and discussion of treatment choices. No major barriers to understanding were identified. The patient expressed understanding and agreement with the above treatment plan. The patient was made aware they should contact our office by phone for worsening of their current condition, the appearance of new symptoms, or with any questions or concerns. Compliance is encouraged with any medications and follow up testing that is ordered. It is a privilege to be allowed the opportunity to participate in? your urological care.? Again, if you have any questions or concerns If you have any questions or concerns please do not hesitate to contact me. The office is [phone]. This note is constructed using voice recognition software. While every effort has been made to ensure accuracy business analytics specialist errors may have been included. Yours sincerely, BECKIE Haque Coding Level of Care Code Est Pt Level 4 (66338) Diagnoses Bladder wall thickening N32.89 Enlarged prostate N40.0 Erectile dysfunction associated with type 2 diabetes mellitus E11.69; N52.1 BPH (benign prostatic hyperplasia) N40.0 Nocturia R35.1 Time Spent (min) 25
== END 2023-10-17 10:12 | disposition home or self-care (01) ==
PROVIDERS: PCP Internal Medicine; Visit Provider Nurse Practitioner Family
DX: N32.89 Other specified disorders of bladder (principal); N40.0 Benign prostatic hyperplasia without lower urinary tract symptoms; E11.69 Type 2 diabetes mellitus with other specified complication; N52.1 Erectile dysfunction due to diseases classified elsewhere; R35.1 Nocturia; Z13.9 Encounter for screening, unspecified
CPT/HCPCS: 99214

== ENCOUNTER → 2023-10-17 09:31 | Outpatient (BNVA) | payer MEDICARE, OTHER, SELFPAY | PROVIDERS: Visit Provider Nurse Practitioner Family | DX: N32.89 Other specified disorders of bladder (principal); N40.1 Benign prostatic hyperplasia with lower urinary tract symptoms; R35.1 Nocturia; E11.69 Type 2 diabetes mellitus with other specified complication; N52.1 Erectile dysfunction due to diseases classified elsewhere; Z79.899 Other long term (current) drug therapy | CPT/HCPCS: 81003; 99212 ==

== ENCOUNTER → 2024-01-04 15:17 | Outpatient (REF) | payer MEDICARE, OTHER, SELFPAY ==
--- NOTE | 2024-01-04 15:23 | ECG_ITS ---
Test Reason : chest pain Blood Pressure : / mmHG Vent. Rate : 072 BPM Atrial Rate : 072 BPM P-R Int : 182 ms QRS Dur : 102 ms QT Int : 350 ms P-R-T Axes : 059 078 -18 degrees QTc Int : 383 ms Normal sinus rhythm Nonspecific T wave abnormality Abnormal ECG When compared with ECG of 04-FEB-2010 15:21, No significant change was found Referred By: Mulugeta Crowder Electronically Signed By:Sky Light
== END ==
LOC: HO.CARD 15:17
PROVIDERS: PCP Internal Medicine; Visit Provider Internal Medicine
DX: R07.9 Chest pain, unspecified (principal)
CPT/HCPCS: 93005

== ENCOUNTER → 2024-01-04 15:23 | Outpatient (BNV) | payer MEDICARE, OTHER, SELFPAY | PROVIDERS: PCP Internal Medicine; Visit Provider Internal Medicine Cardiovascular Disease | DX: R94.31 Abnormal electrocardiogram [ECG] [EKG] (principal) | CPT/HCPCS: 93010 ==

== ENCOUNTER 2024-02-06 10:04 | Outpatient (REF) | payer MEDICARE, OTHER, SELFPAY ==
[2024-02-06 13:24] LABS: MANUAL DIFF FLAG NO
[2024-02-06 13:37] LABS: Basophils Percent Auto 0.4 % (0-2); Eosinophils Absolute Auto 0.1 X10*3/uL (0.0-0.4); Hematocrit 47.3 % (42.0-52.0); Imm Gran Abs Auto 0.02 X10*3/uL (0.00-0.03); Imm Gran Pct Auto 0.3 % (0.0-0.4); Lymphocytes Absolute Auto 1.6 X10*3/uL (1.2-4.9); Lymphocytes Percent Auto 23.9 % (20-40); Mean Corpuscular HGB Conc 31.7 g/dl (31.0-36.0); Mean Corpuscular Hemoglobin 27.9 pg (27.0-33.0); Mean Corpuscular Volume 88.1 fL (80.0-98.0); Monocytes Absolute Auto 0.7 X10*3/uL (0.1-1.2); Monocytes Percent Auto 9.9 % (2-11); Neutrophils Absolute Auto 4.4 x10*3/uL (2.0-8.3); Neutrophils Percent Auto 64.5 % (45-73); Platelet Count 202 X10*3/uL (160-400); Red Blood Count 5.37 X10*6/uL (4.60-5.80); Red Cell Distribution Width 13.2 % (11.0-16.0); White Blood Count 6.8 X10*3/uL (4.8-10.8)
[2024-02-06 13:49] LABS: Estimated Average Glucose 186 mg/dL; Hemoglobin A1c % 8.1 % (<6.0)
[2024-02-06 14:02] LABS: Creatinine Urine 64.77 mg/dL; Microalbum/Creatinine Ratio Ur 61.7 ug/mg cr (<30)
[2024-02-06 14:06] LABS: Alanine Aminotransferase 29 U/L (0-40); Albumin Level 4.4 g/dL (3.5-5.0); Alkaline Phosphatase 67 U/L (39-117); Anion Gap 13 (12-20); Aspartate Amino Transferase 18 U/L (5-37); Bilirubin Total 0.7 mg/dL (0.0-1.0); Blood Urea Nitrogen 28 mg/dL (9-16); Calcium 9.7 mg/dL (8.4-10.2); Carbon Dioxide 30 mmol/L (22-29); Chloride 101 mmol/L (96-108); Cholesterol 144 mg/dL (<200); Estimated Glomerular Filt Rate > 60; Glucose Fasting 131 mg/dL (60-99); HDL Cholesterol 46 mg/dL (>40); LDL Cholesterol Calculated 72 mg/dL (<100); Potassium 4.1 mmol/L (3.3-5.1); Sodium 140 mmol/L (135-145); Total Protein 7.2 g/dL (6.5-8.0); Triglycerides 130 mg/dL (<150)
[2024-02-06 14:12] LABS: Appearance Urine Clear; Color Urine Yellow; Glucose Urine UA >=1000 mg/dL (Negative); Leukocyte Esterase Urine Negative (Negative); Nitrite Urine Negative (Negative); PH 5.5 (5.0-9.0); Specific Gravity - Urine >= 1.030 (1.005-1.025); UMIC TRIGGER UACC YES; Urine Blood Negative (Negative); Urine Ketones Negative (Negative); Urine Protein Negative (Neg-Trace)
[2024-02-06 14:13] LABS: TSH reflex Free T4 0.13 uIU/mL (0.32-4.0); Vitamin D 25-OH Total 64.6 ng/mL (>30)
[2024-02-06 14:17] LABS: Bacteria Urine None Seen (None Seen); Hyaline Casts Urine 0-2 /LPF (0-2); RBC Urine 0-2 /HPF (0-2); Squamous Epithelial Cell Urine 0-2 /HPF (0-2); WBC Urine 0-5 /HPF (0-5)
[2024-02-06 15:01] LABS: Free T4 (Free Thyroxine) 0.83 ng/dL (0.71-1.85)
== END 2024-02-06 10:05 | disposition home or self-care (01) ==
LOC: HO.HMGCLDS 10:04
PROVIDERS: PCP Internal Medicine; Visit Provider Internal Medicine
DX: E78.00 Pure hypercholesterolemia, unspecified (principal); E55.9 Vitamin D deficiency, unspecified; D64.9 Anemia, unspecified; E11.9 Type 2 diabetes mellitus without complications
CPT/HCPCS: 36415; 80053; 80061; 81001; 81003; 82043; 82306; 82570; 83036; 84439; 84443; 85025

== ENCOUNTER 2024-02-07 09:36 | Outpatient (AMB) | payer MEDICARE, OTHER, SELFPAY ==
[2024-02-07 09:43] VITALS: BP 130/64; PULSE 81; O2SAT 98; BMI 31.5
--- NOTE | 2024-02-07 09:43 | MHC.PC.OV ---
Vital Signs 02/07/24 09:43 Height 5 ft 10 in Weight 219 lb 6 oz BMI 31.5 BP 130/64 Blood Pressure Location Lt brachial Position Sitting Pulse 81 Pulse Source Pulse Oximeter Pulse Oximetry (%) 98 Oxygen Delivery Method Room Air Intake Visit Reasons: hyperlipidemia, HTN, DM Public Health Analyst Required: No Accompanied by: Self / Same As Patient Allergies No Known Allergies Allergy (Verified 02/07/24 10:02) Medication List - Last Reconciled 02/07/24 by Mulugeta Crowder MD aspirin 81 mg PO DAILY blood sugar diagnostic 1 strip miscellaneous TID cholecalciferol (vitamin D3) 25 mcg PO DAILY dapagliflozin propanediol (Farxiga) 10 mg PO DAILY finasteride 5 mg PO DAILY 90 days fluoxetine 40 mg PO DAILY glipizide 5 mg PO DAILY insulin glargine 30 units subcut DAILY lisinopril 40 mg PO DAILY 90 days metformin 1,000 mg PO BID multivitamin (Daily Multi-Vitamin tablet) 1 tab PO DAILY simvastatin 40 mg PO BEDTIME 90 days tadalafil (Cialis) 10 mg PO DAILY 90 days tirzepatide (Mounjaro) 10 mg subcut QWEEK Tobacco use date assessed: 02/07/24 Fall risk assessment: No Falls in past year Last assessed Fall Risk: 02/07/24 Dental Screening Dental Screen Date: 02/07/24 Did you have a dental visit in the last 12 months?: Yes Did you have a dental problem in the last 6 months where you did not have access to dental care?: No Was dental information given to patient?: Patient has dentist HPI hyperlipidemia, HTN, DM HPI Details Patient comes in today for his follow up visit States that he feels okay States that Dr. Boyce changed the dose on a couple of his meds recently - Glipizide was cut down to 5 mg QD and his Mounjaro was increased to 10 mg once a week He denies any headaches or dizziness Denies any chest pains, no SOB No nausea/vomiting, no abdominal pain No change in bowel habits noted He had his follow up labs done yesterday - to discuss his results [facility] Medical History Restless leg syndrome Obesity (BMI 30-39.9) Depression Panic disorder [episodic paroxysmal anxiety] Anxiety Alcohol abuse, in remission Hypotestosteronism Obstructive sleep apnea Low TSH level Vitamin D deficiency Lumbar degenerative disc disease Benign essential hypertension Pure hypercholesterolemia Proteinuria, unspecified Type 2 diabetes mellitus with other diabetic kidney complication Surgical History Hx of colonoscopy History of removal of cyst Family History Father Medical history unknown Adopted Mother Medical history unknown Adopted Social History Household Members: Spouse Housing: House Alcohol intake: never Patient Tobacco Use Status: Never used Tobacco e-Cigarette/Vaping Use: Never Used Second Hand Smoke Exposure: Yes Substance Use Type: Marijuana service: No Current occupational status: retired Cognitive needs: No Hearing needs: No Vision needs: Yes Questionnaire PHQ-9 Over the last 2 weeks, how often have you been bothered by any of the following problems? 1. Little interest or pleasure in doing things: more than half the days 2. Feeling down, depressed, or hopeless: several days 3. Trouble falling or staying asleep, or sleeping too much: nearly every day 4. Feeling tired or having little energy: more than half the days 5. Poor appetite or overeating: nearly every day 6. Feeling bad about yourself - or that you are a failure or have let yourself or your family down: several days 7. Trouble concentrating on things, such as reading the newspaper or watching television: not at all 8. Moving or speaking so slowly that other people could have noticed. Or the opposite - being so fidgety or restless that you have been moving around a lot more than usual: not at all 9. Thoughts that you would be better off or of hurting yourself in some way: not at all Total score: 12 Depression Screening Interpretation: Positive Depression Screening Follow-up: Existing condition and In treatment Depression Screening Done: Yes 31085 - PHQ-9 Billing: Yes Source: Developed by Drs. Moisés Kwon, Tianna Contreras, Nicola Junior and colleagues, with an educational fernando from [employer]. Thrive Questionnaire Date Thrive assessed: 02/07/24 I am a: Patient What is your living situation today?: I have a steady place to live Within the past 12 months, did the food you bought not last and you didn't have the money to get more?: Never true Within the past 12 months, did you worry whether your food would run out before you got money to buy more?: Never true Do you have trouble paying for medicines?: No Do you have trouble getting transportation to medical appointments?: No Do you have trouble paying your heating and electricity bill?: No Do you have trouble taking care of your child, family member or friend?: No Do you have trouble with day-to-day activities such as bathing, preparing meals, shopping, managing finances, etc.?: No Are you currently unemployed and looking for a job?: No Are you interested in more education?: No Please select the resources that you would like help with: None Currently or been in a relationship where the following occur: No concerns reported THRIVE Score: 0 AUDIT C Alcohol Use Questionnaire (AUDIT-C) 1. How often do you have a drink containing alcohol?: Never 3. How often do you have six or more drinks on one occasion?: Never Total Score: 0 Score Reviewed/Action Taken: Yes LIU-7 AMB Questionnaire LIU-7 Date LIU - 7 assessed: 02/07/24 Feeling nervous, anxious, or on edge: 0 = Not at all Not being able to stop or control worryin = Not at all Worrying too much about different things: 0 = Not at all Trouble relaxin = Not at all Being so restless that it is hard to sit still: 0 = Not at all Becoming easily annoyed or irritable: 0 = Not at all Feeling afraid as if something awful might happen: 0 = Not at all Total LIU-7 score (0-4 normal; 5-9 mild; 10-14 moderate; 15-21 severe): 0 Source: Developed by Drs. Moisés Kwon, Tianna Contreras, Nicola Junior and colleagues, with an educational fernando from [employer]. Review of Systems Const Denies chills, Denies fatigue, Denies fever(s) and Denies headache(s) ENT Denies dysphagia, Denies dizziness, Denies otalgia, Denies headache(s), Denies neck pain, Denies odynophagia and Denies sore throat Card Denies chest pain, Denies rapid heart rate, Denies palpitations and Denies dyspnea Resp Denies cough and Denies dyspnea GI Denies abdominal pain, Denies constipation, Denies dysphagia, Denies heartburn, Denies diarrhea, Denies nausea, Denies odynophagia and Denies vomiting Denies difficulty urinating, Reports erectile dysfunction, Denies dysuria, Denies nocturia and Denies urinary frequency Musc Reports back pain (on and off, over the lower back) and Denies neck pain Skin/Breast Denies rash Neuro Denies dizziness and Denies headache(s) Psych Reports anxiety (better controlled) and Reports depression (better controlled) Endo Denies fatigue and Denies palpitations Physical exam (Primary Care) Vital Signs: Last Vital Signs Pulse 81 02/07/24 09:43 BP 130/64 02/07/24 09:43 Pulse Ox 98 02/07/24 09:43 Oxygen Delivery Method Room Air 02/07/24 09:43 BMI result Body Mass Index 31.5 Tobacco/Smoking Status: Tobacco use Status Tobacco use date assessed 02/07/24 02/07/24 09:49 Patient Tobacco Use Status Never used Tobacco 02/07/24 09:49 e-Cigarette/Vaping Use Never Used 02/07/24 09:49 PHQ-9: PHQ-9 Score PHQ-9: Total score 12 02/07/24 09:49 Depression Screening Interpretation: Positive Depression Screening Follow-up: Existing condition and In treatment Thrive Assessment: Date of Thrive Assessment Date Thrive assessed 02/07/24 02/07/24 09:49 Currently or been in a relationship where the following occur: No concerns reported Const General: no acute distress and alert HENMT Ears: TM's normal bilaterally and EAC's normal Throat: Yes posterior oropharynx normal and Yes tonsils normal (no TP congestion noted) Neck Neck: Yes no lymphadenopathy and Yes supple Thyroid: Thyroid normal Resp Auscultation: clear to auscultation bilaterally, no rales and no wheezes Cardio Rate: regular rate Rhythm: regular rhythm Heart sounds: no murmurs GI Palpation (GI): Soft to palpation and nontender Auscultation: normal bowel sounds General: Yes no CVA tenderness Back/Spine/Pelvis Back: no CVA tenderness Thoracic/Lumbar Spine: lumbar spinal tenderness (mild) Skin Rashes: no rashes Extrem General: Yes no clubbing, cyanosis or edema Results Reviewed Results Reviewed: Laboratory Tests 02/06/24 02/06/24 10:07 10:27 WBC 6.8 Hgb 15.0 Hct 47.3 Plt Count 202 Sodium 140 Potassium 4.1 Creatinine 0.72 Estimated GFR > 60 Fasting Glucose 131 H Hemoglobin A1c % 8.1 H Calcium 9.7 AST 18 ALT 29 Triglycerides 130 Cholesterol 144 LDL Cholesterol, Calc 72 HDL Cholesterol 46 25-OH Vitamin D Total 64.6 TSH 0.13 L Free T4 0.83 Ur Specific Brooks >= 1.030 H Urine Protein Negative Urine Glucose (UA) >=1000 H Urine Blood Negative Urine Nitrite Negative Ur Leukocyte Esterase Negative Microalb/Creat Ratio 61.7 H Assessment and Plan Assessment & Plan (1) Type 2 diabetes mellitus with other diabetic kidney complication: Code(s): E11.29 - Type 2 diabetes mellitus with other diabetic kidney complication Plan: His HgbA1c was at 8.1% on his labs done yesterday (was at 8.4% a few months ago) - goal is < 7.0% Reinforced diabetic diet Continue Metformin 1000 mg BID, Glipizide 5 mg QD, Farxiga 10 mg QD and Basaglar 30 units Q PM Continue Mounjaro 10 mg SQ once a week Follow up with control clerk at [facility] and with endocrinology (Dr. Boyce) as scheduled (2) Proteinuria, unspecified: Code(s): R80.9 - Proteinuria, unspecified Qualifiers: Proteinuria type: unspecified Qualified Code(s): R80.9 - Proteinuria, unspecified Plan: This appears to have resolved as his recent urinalysis revealed NO proteins in his urine Will continue to monitor his renal function regularly (3) Pure hypercholesterolemia: Code(s): E78.00 - Pure hypercholesterolemia, unspecified Plan: Results of his labs done yesterday reviewed and discussed with patient Reinforced low cholesterol diet Continue Simvastatin 40 mg QD Will recheck his labs and fasting lipids in 4 months for follow up (4) Benign essential hypertension: Code(s): I10 - Essential (primary) hypertension Plan: Reinforced low sodium diet - goal is BP of 120/80 mm or less Continue Lisinopril 40 mg QD (5) Lumbar degenerative disc disease: Code(s): M51.36 - Other intervertebral disc degeneration, lumbar region Plan: Reinforced activity and weight lifting restrictions Follow-up with [facility] as scheduled Continue Ibuprofen 800 mg 3 times a day with food as needed for pain (6) Vitamin D deficiency: Code(s): E55.9 - Vitamin D deficiency, unspecified Plan: Continue Vitamin D3 1000 units QD (7) Low TSH level: Code(s): R79.89 - Other specified abnormal findings of blood chemistry Plan: Patient is currently clinically euthyroid and his free T4 level remains normal on his recent labs Will continue to monitor his TFTs regularly (8) Obstructive sleep apnea: Comment: LONGSTANDING HISTORY OF OBSTRUCTIVE SLEEP APNEA. CURRENT NEW CPAP DEVICE IS WORKING VERY WELL AND HE IS HAPPY WITH ITS USE. ( FF MASK AND PRESSURE =13 CMs ) Code(s): G47.33 - Obstructive sleep apnea (adult) (pediatric) Plan: Continue using his CPAP device daily when sleeping at night although he is still struggling with dry mouth and other issues associated with the use of his CPAP device Repeat sleep study done in December 2022 revealed (+) severe sleep apnea, mostly obstructive, with increased severity in REM sleep Was started on Ropinirole by Dr. Mcallister previously for his leg movements but felt that the Rx did not really help much and he self-discontinued this a few months ago Follow up with Sleep Medicine as scheduled (9) Hypotestosteronism: Code(s): E34.9 - Endocrine disorder, unspecified Plan: Improved - serum testosterone level was normal when checked a couple of years ago; will continue to monitor every now and then (10) Erectile dysfunction: Code(s): N52.9 - Male erectile dysfunction, unspecified Qualifiers: Erectile dysfunction type: unspecified Qualified Code(s): N52.9 - Male erectile dysfunction, unspecified Plan: Continue Finasteride 5 mg QD and Tadalafil 10 mg QD Follow up with urology as scheduled (11) Urinary frequency: Code(s): R35.0 - Frequency of micturition Plan: Improved - advised that this was likely due to a combination of his prostate issues and his hyperglycemia, both of which are now better controlled Continue Tadalafil 10 mg QD and Finasteride 5 mg QD (12) Alcohol abuse, in remission: Code(s): F10.11 - Alcohol abuse, in remission Plan: States that he has been completely sober for over 2 years now Encouraged to continue maintaining his sobriety Follow up with AA as scheduled (13) Anxiety: Code(s): F41.9 - Anxiety disorder, unspecified Plan: States that Fluoxetine has been helping with his anxiety symptoms (14) Depression: Code(s): F32.9 - Major depressive disorder, single episode, unspecified Qualifiers: Depression Type: major depressive disorder Major depression recurrence: recurrent Active/Remission status: currently active Major depression episode severity: unspecified Qualified Code(s): F33.9 - Major depressive disorder, recurrent, unspecified Plan: Continue Fluoxetine 40 mg QD Follow-up with Psychiatry as scheduled (15) Obesity (BMI 30-39.9): Comment: PATIENT IS MODERATELY OBESE, HE IS AWARE OF THIS ISSUE. HAS NOT BEEN ABLE TO LOSE MUCH WEIGHT. HE IS INSTRUCTED ABOUT. DIET AND IMPORTANCE OF EXERCISE Code(s): E66.9 - Obesity, unspecified Plan: Reinforced diet/exercise as tolerated/ lose weight Plan Follow up in 4 months Orders: Orders Complete Blood Count Auto Diff 4 Months D64.9 - Anemia, unspecified Comprehensive Rayle. Panel Fast 4 Months E78.00 - Pure hypercholesterolemia, unspecified Lipid Panel 4 Months E78.00 - Pure hypercholesterolemia, unspecified UA CC w/rflx Micro + Cult 4 Months R30.0 - Dysuria Microalbumin, Random (w Creat) 4 Months E11.9 - Type 2 diabetes mellitus without complications Hemoglobin A1c 4 Months E11.9 - Type 2 diabetes mellitus without complications Thyroid Stimulating Hormone 4 Months R79.89 - Other specified abnormal findings of blood chemistry Free T4 (Free Thyroxine) 4 Months R79.89 - Other specified abnormal findings of blood chemistry Thyroglobulin 4 Months R79.89 - Other specified abnormal findings of blood chemistry Coding Level of Care Code Est Pt Level 4 (28838) Complex EM visit Add On G2211 Diagnoses Type 2 diabetes mellitus with other diabetic kidney complication E11.29 Proteinuria, unspecified type R80.9 Proteinuria type: unspecified Pure hypercholesterolemia E78.00 Benign essential hypertension I10 Lumbar degenerative disc disease M51.36 Vitamin D deficiency E55.9 Low TSH level R79.89 Obstructive sleep apnea G47.33 Hypotestosteronism E34.9 Erectile dysfunction, unspecified erectile dysfunction type N52.9 Erectile dysfunction type: unspecified Urinary frequency R35.0 Alcohol abuse, in remission F10.11 Anxiety F41.9 Episode of recurrent major depressive disorder, unspecified depression episode severity F33.9 Depression Type: major depressive disorder Major depression recurrence: recurrent Active/Remission status: currently active Major depression episode severity: unspecified Obesity (BMI 30-39.9) E66.9
== END 2024-02-07 10:18 | disposition home or self-care (01) ==
PROVIDERS: PCP Internal Medicine; Visit Provider Internal Medicine
DX: E11.29 Type 2 diabetes mellitus with other diabetic kidney complication (principal); F33.9 Major depressive disorder, recurrent, unspecified; R80.9 Proteinuria, unspecified; E78.00 Pure hypercholesterolemia, unspecified; I10 Essential (primary) hypertension; M51.36 Other intervertebral disc degeneration, lumbar region; E55.9 Vitamin D deficiency, unspecified; R79.89 Other specified abnormal findings of blood chemistry; G47.33 Obstructive sleep apnea (adult) (pediatric); E34.9 Endocrine disorder, unspecified; N52.9 Male erectile dysfunction, unspecified; R35.0 Frequency of micturition
CPT/HCPCS: 99214; G2211

== ENCOUNTER 2024-02-14 10:35 | Outpatient (AMB) | payer MEDICARE, OTHER, SELFPAY ==
[2024-02-14 10:37] VITALS: BP 158/94; PULSE 82; O2SAT 96; BMI 32.3
--- NOTE | 2024-02-14 10:37 | MHC.PC.OV ---
Vital Signs 02/14/24 10:37 02/14/24 10:40 Height 5 ft 10 in Weight 225 lb BMI 32.3 BP 158/94 H Blood Pressure Location Lt brachial Position Sitting Sitting Pulse 82 Pulse Source Pulse Oximeter Pulse Oximetry (%) 96 Oxygen Delivery Method Room Air Intake Visit Reasons: Painful lump on back Radio News Writer Required: No Accompanied by: Self / Same As Patient Allergies No Known Allergies Allergy (Verified 02/14/24 10:45) Medication List - Last Reconciled 02/14/24 by Mulugeta Crowder MD aspirin 81 mg PO DAILY blood sugar diagnostic 1 strip miscellaneous TID cholecalciferol (vitamin D3) 25 mcg PO DAILY dapagliflozin propanediol (Farxiga) 10 mg PO DAILY finasteride 5 mg PO DAILY 90 days fluoxetine 40 mg PO DAILY glipizide 5 mg PO DAILY insulin glargine 30 units subcut DAILY lisinopril 40 mg PO DAILY 90 days metformin 1,000 mg PO BID multivitamin (Daily Multi-Vitamin tablet) 1 tab PO DAILY simvastatin 40 mg PO BEDTIME 90 days tadalafil (Cialis) 10 mg PO DAILY 90 days tirzepatide (Mounjaro) 10 mg subcut QWEEK Tobacco use date assessed: 02/14/24 Fall risk assessment: No Falls in past year Last assessed Fall Risk: 02/14/24 Dental Screening Dental Screen Date: 02/14/24 Did you have a dental visit in the last 12 months?: Yes Did you have a dental problem in the last 6 months where you did not have access to dental care?: No Was dental information given to patient?: Patient has dentist HPI Painful lump on back HPI Details Patient comes in today mainly to get a referral to surgery States that he;s had a large painful cyst/boil below his right scapular area for over a week now and it has gotten a lot bigger and more painful over the week States that he had a similar lesion a couple of years ago on his left side that was lanced and drained by Dr. Ribera and he wanted to have the same thing done on this as well States that he called up Dr. Garsia's office and was luckily able to get an appointment for this morning and that he just needs to get a referral from his PCP for this procedure / visit He denies any other acute complaints or symptoms at present REPLACED BY [facility] Medical History Restless leg syndrome Obesity (BMI 30-39.9) Depression Panic disorder [episodic paroxysmal anxiety] Anxiety Alcohol abuse, in remission Hypotestosteronism Obstructive sleep apnea Low TSH level Vitamin D deficiency Lumbar degenerative disc disease Benign essential hypertension Pure hypercholesterolemia Proteinuria, unspecified Type 2 diabetes mellitus with other diabetic kidney complication Surgical History Hx of colonoscopy History of removal of cyst Family History Father Medical history unknown Adopted Mother Medical history unknown Adopted Social History Household Members: Spouse Housing: House Alcohol intake: never Patient Tobacco Use Status: Never used Tobacco e-Cigarette/Vaping Use: Never Used Second Hand Smoke Exposure: Yes Substance Use Type: Marijuana service: No Current occupational status: retired Cognitive needs: No Hearing needs: No Vision needs: Yes Questionnaire PHQ-9 Over the last 2 weeks, how often have you been bothered by any of the following problems? 1. Little interest or pleasure in doing things: more than half the days 2. Feeling down, depressed, or hopeless: several days 3. Trouble falling or staying asleep, or sleeping too much: nearly every day 4. Feeling tired or having little energy: more than half the days 5. Poor appetite or overeating: nearly every day 6. Feeling bad about yourself - or that you are a failure or have let yourself or your family down: several days 7. Trouble concentrating on things, such as reading the newspaper or watching television: not at all 8. Moving or speaking so slowly that other people could have noticed. Or the opposite - being so fidgety or restless that you have been moving around a lot more than usual: not at all 9. Thoughts that you would be better off or of hurting yourself in some way: not at all Total score: 12 Depression Screening Interpretation: Positive Depression Screening Follow-up: Existing condition and In treatment Depression Screening Done: Yes 16157 - PHQ-9 Billing: Yes Source: Developed by Edwardo Lozanoet B.W. Ben, Nicola Junior and colleagues, with an educational fernando from [employer]. Thrive Questionnaire Date Thrive assessed: 02/14/24 I am a: Patient What is your living situation today?: I have a steady place to live Within the past 12 months, did the food you bought not last and you didn't have the money to get more?: Never true Within the past 12 months, did you worry whether your food would run out before you got money to buy more?: Never true Do you have trouble paying for medicines?: No Do you have trouble getting transportation to medical appointments?: No Do you have trouble paying your heating and electricity bill?: No Do you have trouble taking care of your child, family member or friend?: No Do you have trouble with day-to-day activities such as bathing, preparing meals, shopping, managing finances, etc.?: No Are you currently unemployed and looking for a job?: No Are you interested in more education?: No Please select the resources that you would like help with: None Currently or been in a relationship where the following occur: No concerns reported THRIVE Score: 0 AUDIT C Alcohol Use Questionnaire (AUDIT-C) 1. How often do you have a drink containing alcohol?: Never 3. How often do you have six or more drinks on one occasion?: Never Total Score: 0 Score Reviewed/Action Taken: Yes LIU-7 AMB Questionnaire LIU-7 Date LIU - 7 assessed: 02/14/24 Feeling nervous, anxious, or on edge: 0 = Not at all Not being able to stop or control worryin = Not at all Worrying too much about different things: 0 = Not at all Trouble relaxin = Not at all Being so restless that it is hard to sit still: 0 = Not at all Becoming easily annoyed or irritable: 0 = Not at all Feeling afraid as if something awful might happen: 0 = Not at all Total LIU-7 score (0-4 normal; 5-9 mild; 10-14 moderate; 15-21 severe): 0 Source: Developed by Tianna Lozano, Nicola Junior and colleagues, with an educational fernando from [employer]. Review of Systems Const Denies fatigue, Denies fever(s) and Denies headache(s) ENT Denies dizziness, Denies headache(s), Denies neck pain and Denies sore throat Card Denies chest pain and Denies dyspnea Resp Denies dyspnea GI Denies abdominal pain, Denies nausea and Denies vomiting Musc Denies neck pain Skin/Breast Details: (+) large painful boil over the right side of his back, just under his right shoulder blade Neuro Denies dizziness and Denies headache(s) Endo Denies fatigue Physical exam (Primary Care) Vital Signs: Last Vital Signs Pulse 82 02/14/24 10:37 BP 158/94 H 02/14/24 10:37 Pulse Ox 96 02/14/24 10:37 Oxygen Delivery Method Room Air 02/14/24 10:37 BMI result Body Mass Index 32.3 Tobacco/Smoking Status: Tobacco use Status Tobacco use date assessed 02/07/24 02/07/24 09:49 Patient Tobacco Use Status Never used Tobacco 02/07/24 09:49 e-Cigarette/Vaping Use Never Used 02/07/24 09:49 Depression Screening Interpretation: Positive Depression Screening Follow-up: Existing condition and In treatment Thrive Assessment: Date of Thrive Assessment Date Thrive assessed 02/07/24 02/07/24 09:49 Currently or been in a relationship where the following occur: No concerns reported Const General: no acute distress and alert Resp Auscultation: clear to auscultation bilaterally, no rales and no wheezes Cardio Rate: regular rate Rhythm: regular rhythm Heart sounds: no murmurs GI Palpation (GI): Soft to palpation and nontender Skin Other: (+) large tender fluctuant boil/abscess noted at the inferior right scapular area just posterior to his axilla Extrem General: Yes no clubbing, cyanosis or edema Assessment and Plan Assessment & Plan (1) Cutaneous abscess: Code(s): L02.91 - Cutaneous abscess, unspecified Qualifiers: Site of cutaneous abscess: trunk Site of cutaneous abscess of trunk: back Qualified Code(s): L02.212 - Cutaneous abscess of back [any part, except buttock] Plan: Per request, will refer him to surgery for consideration for I & D Patient states that he already has an appointment scheduled in a few minutes with Dr. Ribera and just needs a referral sent over for his visit Referral placed Plan To return as scheduled in June 2024 for his Medicare Annual Wellness Exam and follow up visit Orders: Referrals General Surgery Referral L02.91 - Cutaneous abscess, unspecified Coding Level of Care Code Est Pt Level 3 (55383) Diagnoses Cutaneous abscess of back excluding buttocks L02.212 Site of cutaneous abscess: trunk Site of cutaneous abscess of trunk: back
== END 2024-02-14 10:44 | disposition home or self-care (01) ==
PROVIDERS: PCP Internal Medicine; Visit Provider Internal Medicine
DX: L02.212 Cutaneous abscess of back [any part, except buttock and flank] (principal)
CPT/HCPCS: 99213

== ENCOUNTER 2024-02-14 10:48 | Outpatient (AMB) | payer MEDICARE, OTHER, SELFPAY ==
--- NOTE | 2024-02-14 10:48 | MHC.OFFVIS ---
Intake Visit Reasons: Lump/cyst/boil? on back Intake Note: Patient is seen in office for a lump on the back. 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 Accompanied by: Self / Same As Patient Allergies No Known Allergies Allergy (Verified 02/14/24 11:12) Medication List - Last Reconciled 02/14/24 by Harjeet Ribera MD aspirin 81 mg PO DAILY blood sugar diagnostic 1 strip miscellaneous TID cholecalciferol (vitamin D3) 25 mcg PO DAILY dapagliflozin propanediol (Farxiga) 10 mg PO DAILY finasteride 5 mg PO DAILY 90 days fluoxetine 40 mg PO DAILY glipizide 5 mg PO DAILY insulin glargine 30 units subcut DAILY lisinopril 40 mg PO DAILY 90 days metformin 1,000 mg PO BID multivitamin (Daily Multi-Vitamin tablet) 1 tab PO DAILY simvastatin 40 mg PO BEDTIME 90 days tadalafil (Cialis) 10 mg PO DAILY 90 days tirzepatide (Mounjaro) 10 mg subcut QWEEK HPI HPI Lump/cyst/boil? on back: Details: He is here because of an area of pain, tenderness and redness on the right upper back. He has had this for over a week. This seems to have been worsening He has known he was in the past and has had an I and D before on the left side of the back. He denies any fever or chills. [facility] Medical History Restless leg syndrome Obesity (BMI 30-39.9) Depression Panic disorder [episodic paroxysmal anxiety] Anxiety Alcohol abuse, in remission Hypotestosteronism Obstructive sleep apnea Low TSH level Vitamin D deficiency Lumbar degenerative disc disease Benign essential hypertension Pure hypercholesterolemia Proteinuria, unspecified Type 2 diabetes mellitus with other diabetic kidney complication Surgical History Hx of colonoscopy History of removal of cyst Family History Father Medical history unknown Adopted Mother Medical history unknown Adopted Social History Household Members: Spouse Housing: House Alcohol intake: never Patient Tobacco Use Status: Never used Tobacco e-Cigarette/Vaping Use: Never Used Second Hand Smoke Exposure: Yes Substance Use Type: Marijuana service: No Current occupational status: retired Cognitive needs: No Hearing needs: No Vision needs: Yes Review of Systems Const Denies chills and Denies fever(s) Card Denies chest pain, Denies dyspnea and Denies dyspnea on exertion Resp Denies cough, Denies dyspnea and Denies dyspnea on exertion GI Denies hematochezia and Denies change in bowel habits Denies hematuria and Denies difficulty urinating Musc Denies back pain and Denies limited range of motion Neuro Denies focal weakness and Denies convulsions Psych Denies depression and Denies mood swings Physical Exam Const General: comfortable and no acute distress Resp Effort & Inspection: normal respiratory effort Cardio Rate: regular rate Back/Spine/Pelvis Other: Fluctuant mass, about 3 x 4 cm on the left upper back towards the shoulder, with redness of the overlying skin Office Procedures I&D Drain Details: He was in prone position. The area of the abscess on the right upper back was prepped and draped. Lidocaine 1% was used for local anesthesia. I made a generous cruciate incision on the skin overlying the abscess and this was carried down into the abscess cavity. Immediately large amounts of pus was drained. I probed the abscess cavity with Q-tips to make sure that this was fully drained. I then applied a light packing and dry dressings He tolerated the procedure well. There was minimal blood loss. 71297-Gascvcol of Skin Abscess, complex All charges added?: Procedure code (CPT) selection complete Assessment & Plan Assessment & Plan (1) Cutaneous abscess: Code(s): L02.91 - Cutaneous abscess, unspecified Category: Medical Qualifiers: Site of cutaneous abscess: trunk Site of cutaneous abscess of trunk: back Qualified Code(s): L02.212 - Cutaneous abscess of back [any part, except buttock] Plan: This is likely due to an infected epidermal cyst. I explained to him it is best to proceed with I&D. He had given consent. I&D was done and large amounts of pus was drained. He tolerated procedure well. He was given wound care instructions. I will not give him antibiotics. I will see him in the office for wound check if he has any concerns. He is comfortable with the plan. Coding Level of Care Code Est Pt Level 3 (99006) Diagnoses Cutaneous abscess of back excluding buttocks L02.212 Site of cutaneous abscess: trunk Site of cutaneous abscess of trunk: back CPT Codes I&D Drain - Drain 2: 56064-Xibzkywc of Skin Abscess, complex ([id number])
== END 2024-02-14 11:55 | disposition home or self-care (01) ==
PROVIDERS: PCP Internal Medicine; Visit Provider Surgery
DX: L02.212 Cutaneous abscess of back [any part, except buttock and flank] (principal)
CPT/HCPCS: 10061; 99213

== ENCOUNTER → 2024-02-14 10:48 | Outpatient (BNVA) | payer MEDICARE, OTHER, SELFPAY | PROVIDERS: PCP Internal Medicine; Visit Provider Surgery | DX: L02.212 Cutaneous abscess of back [any part, except buttock and flank] (principal) | CPT/HCPCS: 10061; 99212 ==

== ENCOUNTER 2024-05-15 14:07 | Outpatient (AMB) | payer MEDICARE, OTHER, SELFPAY ==
--- NOTE | 2024-05-15 14:08 | A.OFFVIS_ITS ---
Vital Signs 05/15/24 14:13 Height 5 ft 10 in Weight 222 lb BMI 31.9 Intake Visit Reasons: new painful cyst on back Intake Note: This patient presents for new painful cyst on back. Pt c/o; reports will complete antibiotics 05/16/2024, reports draining. 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 Accompanied by: Self / Same As Patient Allergies No Known Allergies Allergy (Verified 05/15/24 14:15) Medication List - Last Reconciled 05/15/24 by Harjeet Ribera MD aspirin 81 mg PO DAILY blood sugar diagnostic 1 strip miscellaneous TID cephalexin 500 mg PO Q8H 7 days cholecalciferol (vitamin D3) 25 mcg PO DAILY dapagliflozin propanediol (Farxiga) 10 mg PO DAILY finasteride 5 mg PO DAILY 90 days fluoxetine 40 mg PO DAILY glipizide 5 mg PO DAILY insulin glargine 30 units subcut DAILY lisinopril 40 mg PO DAILY 90 days metformin 1,000 mg PO BID multivitamin (Daily Multi-Vitamin tablet) 1 tab PO DAILY simvastatin 40 mg PO BEDTIME 90 days tadalafil (Cialis) 10 mg PO DAILY 90 days tirzepatide (Mounjaro) 10 mg subcut QWEEK HPI HPI new painful cyst on back: Details: He is here for another infected cyst. He says that he has once this on the left upper back which he had swollen for about 10 days now. He was started on antibiotics but this started to be more painful and tender about 2 days ago. He notices a little bit of drainage as well. He notices some bleeding. He has a history of multiple cysts in the past. [facility] Medical History Abscess of back Restless leg syndrome Obesity (BMI 30-39.9) Depression Panic disorder [episodic paroxysmal anxiety] Anxiety Alcohol abuse, in remission Hypotestosteronism Obstructive sleep apnea Low TSH level Vitamin D deficiency Lumbar degenerative disc disease Benign essential hypertension Pure hypercholesterolemia Proteinuria, unspecified Type 2 diabetes mellitus with other diabetic kidney complication Surgical History Hx of colonoscopy History of removal of cyst Family History Father Medical history unknown Adopted Mother Medical history unknown Adopted Social History Household Members: Spouse Housing: House Alcohol intake: never Patient Tobacco Use Status: Never used Tobacco e-Cigarette/Vaping Use: Never Used Second Hand Smoke Exposure: Yes Substance Use Type: Marijuana service: No Current occupational status: retired Cognitive needs: No Hearing needs: No Vision needs: Yes Review of Systems Const Denies chills and Denies fever(s) Card Denies chest pain, Denies dyspnea and Denies dyspnea on exertion Resp Denies cough, Denies dyspnea and Denies dyspnea on exertion GI Denies hematochezia and Denies change in bowel habits Denies hematuria and Denies difficulty urinating Musc Denies back pain and Denies limited range of motion Neuro Denies focal weakness and Denies convulsions Psych Denies depression and Denies mood swings Physical Exam Vital Signs: BMI result Body Mass Index 31.9 Const General: comfortable and no acute distress Orientation/consciousness: patient oriented x3 Neck Neck: Yes no lymphadenopathy Resp Auscultation: clear to auscultation bilaterally Cardio Rhythm: regular rhythm GI Palpation (GI): Soft to palpation, nontender and no guarding Back/Spine/Pelvis Other: Cystic induration with redness, central fluctuance on the left upper back, measuring about 3 cm in diameter Neuro General: patient oriented x3 Office Procedures I&D Drain Details: He was placed in supine position. The area of the cyst was prepped and draped. There was note of an induration about 3 cm in diameter with central fluctuance consistent with an infected epidermal cyst with an abscess. Lidocaine 1% was used for local anesthesia. I made a generous cruciate incision on the skin overlying this fluctuance using blade 11. And this carried down to enter an abscess cavity. Large amounts of pus and sebaceous fluid was drained. I bluntly debrided the cavity with Q-tips as well as forceps to remove any capsule. I then applied dry dressings. He tolerated procedure well. There were no immediate complications. 92221-Bdtlafrl of Skin Abscess, complex All charges added?: Procedure code (CPT) selection complete Assessment & Plan Assessment & Plan (1) Abscess of back: Code(s): L02.212 - Cutaneous abscess of back [any part, except buttock] Category: Medical Plan: He has what appears to be an abscess on the left upper back secondary to an in fected epidermal cyst. I explained to her that this needs to be opened up and drained. I explained the technique of I&D under local anesthesia. He understood and was familiar with this and he had given consent I&D was done with note of purulent fluid as well as sebaceous material. I bluntly debrided the cavity with forceps to remove any possible capsule. I also debrided this with a Q-tip. I applied dry dressings. I instructed on wound care. He is to complete a course of oral antibiotics prescribed by his primary care physician. He says that he wants another cyst moved on his lower back. He will come back to the office for this. Coding Level of Care Code Est Pt Level 3 (25847) Diagnoses Abscess of back L02.212 CPT Codes I&D Drain - Drain 2: 57272-Fwklczbz of Skin Abscess, complex ([id number])
[2024-05-15 14:13] VITALS: BMI 31.9
== END 2024-05-15 14:32 | disposition home or self-care (01) ==
LOC: HO.HGS 14:07
PROVIDERS: PCP Internal Medicine; Visit Provider Surgery
DX: L02.212 Cutaneous abscess of back [any part, except buttock and flank] (principal)
CPT/HCPCS: 10060; 99213

== ENCOUNTER → 2024-05-15 14:07 | Outpatient (BNVA) | payer MEDICARE, OTHER, SELFPAY | PROVIDERS: PCP Internal Medicine; Visit Provider Surgery | DX: L02.212 Cutaneous abscess of back [any part, except buttock and flank] (principal) | CPT/HCPCS: 10060; 99212 ==

== ENCOUNTER 2024-06-10 11:38 | Outpatient (REF) | payer MEDICARE, OTHER, SELFPAY ==
[2024-06-10 13:11] LABS: Appearance Urine Clear; Color Urine Yellow; Glucose Urine UA >=1000 mg/dL (Negative); Leukocyte Esterase Urine Negative (Negative); Nitrite Urine Negative (Negative); PH 5.5 (5.0-9.0); Specific Gravity - Urine >= 1.030 (1.005-1.025); UMIC TRIGGER UACC YES; Urine Blood Negative (Negative); Urine Ketones Negative (Negative); Urine Protein Negative (Neg-Trace)
[2024-06-10 13:20] LABS: Bacteria Urine None Seen (None Seen); Hyaline Casts Urine 0-2 /LPF (0-2); RBC Urine 0-2 /HPF (0-2); Squamous Epithelial Cell Urine 0-2 /HPF (0-2); WBC Urine 0-5 /HPF (0-5)
[2024-06-10 13:21] LABS: MANUAL DIFF FLAG NO
[2024-06-10 13:23] LABS: Basophils Percent Auto 0.6 % (0-2); Eosinophils Absolute Auto 0.1 X10*3/uL (0.0-0.4); Eosinophils Percent Auto 1.5 % (0-4); Hematocrit 46.1 % (42.0-52.0); Hemoglobin 14.8 g/dl (14.0-18.0); Imm Gran Abs Auto 0.02 X10*3/uL (0.00-0.03); Imm Gran Pct Auto 0.3 % (0.0-0.4); Lymphocytes Percent Auto 31.7 % (20-40); Mean Corpuscular HGB Conc 32.1 g/dl (31.0-36.0); Mean Corpuscular Hemoglobin 27.6 pg (27.0-33.0); Monocytes Absolute Auto 0.7 X10*3/uL (0.1-1.2); Monocytes Percent Auto 11.7 % (2-11); Neutrophils Absolute Auto 3.3 x10*3/uL (2.0-8.3); Neutrophils Percent Auto 54.2 % (45-73); Platelet Count 175 X10*3/uL (160-400); Red Blood Count 5.36 X10*6/uL (4.60-5.80); Red Cell Distribution Width 13.2 % (11.0-16.0); White Blood Count 6.2 X10*3/uL (4.8-10.8)
[2024-06-10 13:41] LABS: Estimated Average Glucose 192 mg/dL; Hemoglobin A1C 261.2089 umol/L; Hemoglobin A1c % 8.3 % (<6.0); Total Hemoglobin (HGBA1C) 3914.0995 umol/L
[2024-06-10 14:04] LABS: Alanine Aminotransferase 23 U/L (0-40); Albumin Level 4.4 g/dL (3.5-5.0); Alkaline Phosphatase 71 U/L (39-117); Anion Gap 11 (12-20); Aspartate Amino Transferase 19 U/L (5-37); Bilirubin Total 0.6 mg/dL (0.0-1.0); Blood Urea Nitrogen 25 mg/dL (9-16); Calcium 9.5 mg/dL (8.4-10.2); Carbon Dioxide 30 mmol/L (22-29); Chloride 103 mmol/L (96-108); Cholesterol 122 mg/dL (<200); Estimated Glomerular Filt Rate > 60; Glucose Fasting 146 mg/dL (60-99); HDL Cholesterol 46 mg/dL (>40); LDL Cholesterol Calculated 55 mg/dL (<100); Potassium 4.8 mmol/L (3.3-5.1); Sodium 139 mmol/L (135-145); Total Protein 7.1 g/dL (6.5-8.0); Triglycerides 108 mg/dL (<150)
[2024-06-10 14:09] LABS: Free T4 (Free Thyroxine) 0.98 ng/dL (0.71-1.85); Thyroid Stimulating Hormone 0.14 uIU/mL (0.32-4.0)
[2024-06-10 14:15] LABS: Creatinine Urine 64.99 mg/dL
[2024-06-11 10:49] LABS: Thyroglobulin 10.2 ng/mL
== END 2024-06-10 11:39 | disposition home or self-care (01) ==
LOC: HO.HMGCLDS 11:38
PROVIDERS: PCP Internal Medicine; Visit Provider Internal Medicine
DX: D64.9 Anemia, unspecified (principal); E11.9 Type 2 diabetes mellitus without complications; R79.89 Other specified abnormal findings of blood chemistry; E78.00 Pure hypercholesterolemia, unspecified
CPT/HCPCS: 36415; 80053; 80061; 81001; 82043; 82570; 83036; 84432; 84439; 84443; 85025

== ENCOUNTER 2024-06-12 10:37 | Outpatient (REF) | payer MEDICARE, OTHER, SELFPAY | END 2024-06-12 10:38 | disposition home or self-care (01) | LOC: HO.LNP 10:37 | PROVIDERS: PCP Internal Medicine; Visit Provider Surgery | DX: D23.5 Other benign neoplasm of skin of trunk (principal); L72.0 Epidermal cyst | CPT/HCPCS: 11402; 88305; 88313; 88341; 88342 ==

== ENCOUNTER 2024-06-12 10:37 | Outpatient (AMB) | payer MEDICARE, OTHER, SELFPAY ==
--- NOTE | 2024-06-12 10:38 | A.OFFVIS_ITS ---
Vital Signs 06/12/24 10:44 Height 5 ft 10 in Weight 221 lb 6 oz BMI 31.8 Intake Visit Reasons: cyst back Intake Note: This patient present for cyst back. Pt c/o; reports back cyst, reports no drainage or discharge that he has noticed. 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 [facility] Medical History (Updated 06/12/24 @ 11:09 by Harjeet Ribera MD) Epidermal inclusion cyst Abscess of back Restless leg syndrome Obesity (BMI 30-39.9) Depression Panic disorder [episodic paroxysmal anxiety] Anxiety Alcohol abuse, in remission Hypotestosteronism Obstructive sleep apnea Low TSH level Vitamin D deficiency Lumbar degenerative disc disease Benign essential hypertension Pure hypercholesterolemia Proteinuria, unspecified Type 2 diabetes mellitus with other diabetic kidney complication Surgical History Hx of colonoscopy History of removal of cyst Family History Father Medical history unknown Adopted Mother Medical history unknown Adopted Social History Household Members: Spouse Housing: House Alcohol intake: never Patient Tobacco Use Status: Never used Tobacco e-Cigarette/Vaping Use: Never Used Second Hand Smoke Exposure: Yes Substance Use Type: Marijuana service: No Current occupational status: retired Cognitive needs: No Hearing needs: No Vision needs: Yes Physical Exam Vital Signs: BMI result Body Mass Index 31.8 Office Procedures Excision Details: Consent was given by the patient. He was placed in prone position. The area of the cyst on the mid back was prepped and draped. Lidocaine 1% was used for local anesthesia. I made an elliptical incision around this cyst on the skin using blade 15. This was carried down through the full-thickness of the skin and subcutaneous fat to excise this entire cyst. This cyst measured about 1.5 cm in diameter. The incision was closed with full-thickness nylon 3-0 interrupted sutures. Dressings were applied. The procedure was completed. He tolerated the procedure well. There were no immediate complications. 24214-xtjnk/arms/legs 1.1-2cm Procedure code (CPT) selection complete Assessment & Plan Assessment & Plan (1) Epidermal inclusion cyst: Code(s): L72.0 - Epidermal cyst Category: Medical Plan: Excision was done under local anesthesia. He was given wound care instructions. I will see him in the office for removal of sutures. Coding Level of Care Code Procedure Only Diagnoses Epidermal inclusion cyst L72.0 CPT Codes Trunk/Arms/Legs - CPT: 20926-xysew/arms/legs 1.1-2cm ([id number])
[2024-06-12 10:44] VITALS: BMI 31.8
== END 2024-06-12 11:09 | disposition home or self-care (01) ==
PROVIDERS: PCP Internal Medicine; Visit Provider Surgery
DX: D23.5 Other benign neoplasm of skin of trunk (principal)
CPT/HCPCS: 11402

== ENCOUNTER 2024-06-13 08:59 | Outpatient (AMB) | payer MEDICARE, OTHER, SELFPAY ==
[2024-06-13 09:01] VITALS: BP 126/62; PULSE 76; O2SAT 96; BMI 32.0
--- NOTE | 2024-06-13 09:01 | A.OFFVIS_ITS ---
Intake Vital Signs 06/13/24 09:01 Height 5 ft 10 in Weight 223 lb 6 oz BMI 32.0 BP 126/62 Blood Pressure Location Lt brachial Position Sitting Pulse 76 Pulse Source Pulse Oximeter Pulse Oximetry (%) 96 Oxygen Delivery Method Room Air Intake Visit Reasons: [facility] Mangle Tender Required: No Accompanied by: Self / Same As Patient Allergies No Known Allergies Allergy (Verified 06/13/24 09:26) Medication List - Last Reconciled 06/13/24 by CARROLL Strange aspirin 81 mg PO DAILY blood sugar diagnostic 1 strip miscellaneous TID cholecalciferol (vitamin D3) 25 mcg PO DAILY dapagliflozin propanediol (Farxiga) 10 mg PO DAILY finasteride 5 mg PO DAILY 90 days fluoxetine 40 mg PO DAILY glipizide 5 mg PO DAILY glipizide ER 5 mg PO DAILY insulin glargine 30 units subcut DAILY lisinopril 40 mg PO DAILY 90 days metformin 1,000 mg PO BID multivitamin (Daily Multi-Vitamin tablet) 1 tab PO DAILY simvastatin 40 mg PO BEDTIME 90 days tadalafil (Cialis) 10 mg PO DAILY 90 days tirzepatide (Mounjaro) 10 mg subcut QWEEK Do you need a note to return to daycare/school/sports/work: No HPI [facility] HPI Details Dentist: up-to-date Eye: Annually:Up-to-date Corrected vision: glasses Colonoscopy: 2020 Flu:update COVID: update The patient is a 69-year-old male with past medical history with enlarged prostate, erectile dysfunction associated with type 2 diabetes, BPH, depression, panic disorder, anxiety, alcohol abuse, in remission, hypotestosteronism, obstructive sleep apnea, vitamin-D deficiency, lumbar degenerative disc disease, benign essential hypertension, and pure hypercholesterolemia The patient is presenting today for an annual wellness visit. His recent lab results was discussed in detail The patient A1c increase from 8.1 to 8.4, he thinks this is due to the holidays and not sticking to a diet The patient had an epidermal inclusion cyst excision done on 06/12/[address] Ribera Dressing change was done in the office per patient request. We discussed patient comprehensive care plan which was scanned into patient documents IPPE/AWV: c/o of Annual Wellness Visit, initial visit. Medical / Social History Reviewed Past Medical History Yes . [place] of Care / Care Team list updated Yes . Surgical/Hospitalization History Yes . Current Medications (including OTC and supplements) Yes . Family History Yes . Tobacco Control form Yes . AUDIT-C (Alcohol use) form Yes . Illicit drug use in Social History Yes . Current diagnosis of depression? No Appropriate PHQ2/PHQ9 completed Yes . Data entered by Head Of Integrated Media and reviewed by provider Home Safety Throw rugs? No Grab bars? No Raised toilet seats? No Working smoke detectors? Yes Working carbon monoxide detectors? Yes Data entered by Head Of Integrated [employer] and reviewed by provider Activities of Daily Living (ADLs) Difficulty bathing or showering? No Difficulty dressing? No Difficulty using the toilet? No Difficulty getting in and out of bed? No Difficulty walking? No Receives help from another person with any of the above tasks? No Instrumental Activities of Daily Living (IADLs) Uses the telephone without help Gets to places out of walking distance without help Goes shopping for groceries without help Prepares own meals without help Does own minor home maintenance without help Does own laundry without help Does own housework without help Manages own money without help Currently takes medications? Yes Takes medication without help End-of-Life Planning Discussed advance directive Yes Advance directive on file Discussed wishes expressed in advance directive agreed to following patient's wishes Fall Risk: Fall History Have you had any falls with injury in the past year? No . Have you had two or more falls in the past year? No . Fall Risk Assessment: No falls in the past year . [facility] Medical History Epidermal inclusion cyst Abscess of back Restless leg syndrome Obesity (BMI 30-39.9) Depression Panic disorder [episodic paroxysmal anxiety] Anxiety Alcohol abuse, in remission Hypotestosteronism Obstructive sleep apnea Low TSH level Vitamin D deficiency Lumbar degenerative disc disease Benign essential hypertension Pure hypercholesterolemia Proteinuria, unspecified Type 2 diabetes mellitus with other diabetic kidney complication Surgical History Hx of colonoscopy History of removal of cyst Family History Father Medical history unknown Adopted Mother Medical history unknown Adopted Social History Household Members: Spouse Housing: House Alcohol intake: never Patient Tobacco Use Status: Never used Tobacco e-Cigarette/Vaping Use: Never Used Second Hand Smoke Exposure: Yes Substance Use Type: Marijuana service: No Current occupational status: retired Cognitive needs: No Hearing needs: No Vision needs: Yes Questionnaire Medicare Wellness Checkup What [age] What gender do you identify with?: male During the past 4 weeks, how much have you been bothered by emotional problems such as feeling anxious, depressed, irritable, sad or downhearted, and blue?: slightly During the past 4 weeks, has your physical & emotional health limited your social activities with family, friends, neighbors, or groups?: slightly During the past 4 weeks, how much bodily pain have you generally had?: very mild pain During the past 4 weeks, was someone available to help you if you needed & wanted help?: yes, as much as I wanted During the past 4 weeks, what was the hardest physical activity you could do for at least 2 minutes?: light Can you get to places out of walking distance without help? (For eg., can you travel alone on buses, taxis or drive your car?): Yes Can you go shopping for groceries or clothes without someone's help?: Yes Can you prepare your own meals?: Yes Can you do your housework without help?: Yes Because of any health problems, do you need the help of another person with your personal care needs such as eating, bathing, dressing or getting around the house?: No Can you handle your own money without help?: Yes During the past 4 weeks, how would you rate your health in general?: fair During the past 4 weeks how have things been going for you?: good & bad parts about equal Are you having difficulties driving your car?: no Do you always fasten your seat belt when you are in a car?: yes, usually During past 4 weeks, have you been bothered by the following: never: Sexual problems?, Trouble eating well?, Teeth or denture problems? and Problems using the telephone?, seldom: Falling or dizzy when standing up and sometimes: Tiredness or fatigue? Have you fallen 2 or more times in the past year?: No Are you afraid of falling?: Yes Are you a smoker?: no During the past 4 weeks, how many drinks of wine, beer, or other alcoholic beverages did you have?: no alcohol at all Do you exercise for about 20 minutes 3 or more times a week?: no, I usually do not exercise this much Have you been given information to help with the following?: yes: Hazards in your house that might hurt you? and yes: Keeping track of your medications? How often do you have trouble taking medicines the way you have been told to take them?: I always take medicine as prescribed How confident are you that you can control & manage most of your health problems?: somewhat confident What is your race?: White Mini Mental State Exam (MMSE) Orientation What is the (year) (season) (date) (day) (month)?: year, season, date, day and month Where are we (state) (county) (town or city) (hospital) (floor)?: state, county, town or city, hospital/clinic and floor Score Score: 10 Activity of Daily Living Bathing - sponge bath, tub bath or shower: receives no assistance (gets in/out by self, if usual bathing means Dressing - getting clothes from closets & drawers, including inner/outer garments & fasteners.: gets clothes & gets completely dressed without help Toileting - going to the 'toilet room' for urine/bowel elimination & cleaning self/arranging clothes: goes to toilet room, cleans self, arranges clothes without help Transfer: moves in & out of bed and chair without help (may use support object) Continence: controls urination/bowel movements completely by self Feeding: feeds self without help Total Score: 0 Information obtained from: patient Using telephone: independent Traveling: independent Shopping: independent Preparing meals: independent Housework: independent Taking medicine: independent Managing money: independent PHQ-9 Over the last 2 weeks, how often have you been bothered by any of the following problems? 1. Little interest or pleasure in doing things: several days 2. Feeling down, depressed, or hopeless: several days 3. Trouble falling or staying asleep, or sleeping too much: more than half the days 4. Feeling tired or having little energy: several days 5. Poor appetite or overeating: more than half the days 6. Feeling bad about yourself - or that you are a failure or have let yourself or your family down: not at all 7. Trouble concentrating on things, such as reading the newspaper or watching television: several days 8. Moving or speaking so slowly that other people could have noticed. Or the opposite - being so fidgety or restless that you have been moving around a lot more than usual: several days 9. Thoughts that you would be better off or of hurting yourself in some way: not at all Total score: 9 Depression Screening Interpretation: Positive Depression Screening Follow-up: Existing condition and In treatment Depression Screening Done: Yes [id number] - PHQ-9 Billing: Yes Source: Developed by Drs. Moisés Kwon, Tianna Contreras, Nicola Junior and colleagues, with an educational fernando from [employer]. PHQ-2/PHQ-9 PHQ-2 Over the last 2 weeks, how often have you been bothered by any of the following problems? 1. Little interest or pleasure in doing things: several days 2. Feeling down, depressed, or hopeless: several days Total score: 2 If score is 3 or greater, continue 3. Trouble falling or staying asleep, or sleeping too much: more than half the days 4. Feeling tired or having little energy: several days 5. Poor appetite or overeating: more than half the days 6. Feeling bad about yourself - or that you are a failure or have let yourself or your family down: not at all 7. Trouble concentrating on things, such as reading the newspaper or watching television: several days 8. Moving or speaking so slowly that other people could have noticed. Or the opposite - being so fidgety or restless that you have been moving around a lot more than usual: several days 9. Thoughts that you would be better off or of hurting yourself in some way: not at all Total score: 9 10. If you checked off any problems, how difficult have those problems made it for you to do your work, take care of things at home, or get along with other people?: somewhat difficult 0-4 None-Minimal, 5-9 Mild, 10-14 Moderate, 15-19 Moderately Severe, 20-27 Severe Source: Developed by Drs. Moisés Kwon, Nicola Paige and colleagues, with an educational fernando from [employer]. Thrive Questionnaire Date Thrive assessed: 06/13/24 I am a: Patient What is your living situation today?: I have a steady place to live Within the past 12 months, did the food you bought not last and you didn't have the money to get more?: Never true Within the past 12 months, did you worry whether your food would run out before you got money to buy more?: Never true Do you have trouble paying for medicines?: No Do you have trouble getting transportation to medical appointments?: No Do you have trouble paying your heating and electricity bill?: No Do you have trouble taking care of your child, family member or friend?: No Do you have trouble with day-to-day activities such as bathing, preparing meals, shopping, managing finances, etc.?: No Are you currently unemployed and looking for a job?: No Are you interested in more education?: No Please select the resources that you would like help with: None Currently or been in a relationship where the following occur: No concerns reported THRIVE Score: 0 LIU-7 AMB Questionnaire LIU-7 Date LIU - 7 assessed: 02/14/24 Source: Developed by Drs. Moisés Kwon, Tianna Contreras, Nicola Junior and colleagues, with an educational fernando from [employer]. Review of Systems Const Details: Const Denies chills, Denies fatigue, Denies fever(s), Denies headache(s) and Denies weakness ENT Denies dizziness and Denies headache(s) Card Denies chest pain, Denies lightheadedness, Denies dyspnea and Denies other (Palpitations) Resp Denies cough, Denies dyspnea, Denies wheezing and Denies other ( shortness of breath) GI Denies abdominal pain, Denies change in bowel habits Physical Exam Vital Signs: Last Vital Signs Pulse 76 06/13/24 09:01 BP 126/62 06/13/24 09:01 Pulse Ox 96 06/13/24 09:01 Oxygen Delivery Method Room Air 06/13/24 09:01 BMI result Body Mass Index 32.0 Const Other: IPPE/AWV: Balance Romberg Yes . Tandem walk Yes. Walk and Turn Yes . Rise from sit to stand Yes . Vision Corrective lens yes, glasses Vision screen pass Hearing Whisper test pass Urinary incont. no. EKG Not clinically necessary. General: cooperative and no acute distress Orientation/consciousness: patient oriented x3 HEENT Head: Yes normal to inspection and Yes normocephalic Ears: hearing grossly normal bilaterally Eyes General: appearance normal, both eyes and all related structures Visual Saavedra: normal visual saavedra by confrontation Pupils: Equal, round and reactive pupils present EOM: EOMs intact bilaterally Neck Neck: Yes normal visual inspection and Yes no lymphadenopathy Chest Chest palpation & inspection: normal inspection of the chest Resp Effort & Inspection: normal respiratory effort Auscultation: clear to auscultation bilaterally Cardio Rate: regular rate Rhythm: regular rhythm Heart sounds: S1 normal heart sound present and S2 normal heart sound present GI Inspection: Yes normal to inspection and Yes obesity Auscultation: normal bowel sounds General: Yes no CVA tenderness Back/Spine/Pelvis Back: no CVA tenderness Skin General skin exam: no rashes or lesions noted Neuro General: patient oriented x3 Cranial nerves: Yes Equal, round and reactive pupils present Extrem General: Yes normal to inspection Psych Mental Status: mental status grossly normal Results Reviewed Results Reviewed: Laboratory Tests 06/10/24 06/10/24 11:43 11:50 WBC 6.2 RBC 5.36 Hgb 14.8 Hct 46.1 Plt Count 175 Sodium 139 Potassium 4.8 Chloride 103 BUN 25 H Creatinine 0.79 Estimated GFR > 60 Fasting Glucose 146 H Hemoglobin A1c % 8.3 H Total Bilirubin 0.6 AST 19 ALT 23 Alkaline Phosphatase 71 Triglycerides 108 Cholesterol 122 LDL Cholesterol, Calc 55 HDL Cholesterol 46 TSH 0.14 L Free T4 0.98 Thyroglobulin 10.2 Urine Color Yellow Urine Appearance Clear Urine pH 5.5 Ur Specific Kim >= 1.030 H Urine Protein Negative Urine Glucose (UA) >=1000 H Urine Ketones Negative Urine Blood Negative Urine Nitrite Negative Urine Creatinine 64.99 Urine Microalbumin 15.0 Microalb/Creat Ratio 23.0 Assessment & Plan Assessment & Plan (1) Medicare annual wellness visit, initial: Code(s): Z00.00 - Encounter for general adult medical examination without abnormal findings Plan: The patient is updated on all the recommended screenings. [place] of care was reviewed with the patient and scanned in chart The patient labs was reviewed with him (2) Pure hypercholesterolemia: Code(s): E78.00 - Pure hypercholesterolemia, unspecified Plan: Continue simvastatin 40 mg at bedtime The patient tri/ldl/hdl/t-chol are all with normal range Will repeat labs in 4 months (3) Benign essential hypertension: Code(s): I10 - Essential (primary) hypertension Plan: reinforced low sodium diet continues lisinopril 40 mg daily (4) Type 2 diabetes mellitus with other diabetic kidney complication: Code(s): E11.29 - Type 2 diabetes mellitus with other diabetic kidney complication Plan: Discussed with patient about his a1c increased to 8.4 from 8.1. The patient seems to think that this is due to the holidays and wants to continue on his same regimen. Will recheck labs in 4 months Continue farxiga 10 mg daily, glipizide 5 mg daily, lantus 30 units, and metformin 1000 mg BID (5) Obstructive sleep apnea: Comment: LONGSTANDING HISTORY OF OBSTRUCTIVE SLEEP APNEA. CURRENT NEW CPAP DEVICE IS WORKING VERY WELL AND HE IS HAPPY WITH ITS USE. ( FF MASK AND PRESSURE =13 CMs ) Code(s): G47.33 - Obstructive sleep apnea (adult) (pediatric) Plan: Continue wearing CPAP when you sleep Follow up with Sleep Medicine as scheduled (6) Vitamin D deficiency: Code(s): E55.9 - Vitamin D deficiency, unspecified Plan: continue cholecalciferol 25 mcg daily Will recheck labs in 4 months for follow up appt (7) Epidermal inclusion cyst: Code(s): L72.0 - Epidermal cyst Plan: The patient had an excision on 06/12/24. Sutures intact, small amount of blood on old dressing; dressing change done in office. NO s/sx of infection noted. Follow with general surgery as scheduled (8) Anxiety: Code(s): F41.9 - Anxiety disorder, unspecified Plan: Continue fluoxetine 40 mg daily Denies si/hi (9) Depression: Code(s): F32.9 - Major depressive disorder, single episode, unspecified Qualifiers: Active/Remission status: currently active Depression Type: major depressive disorder Major depression episode severity: unspecified Major depression recurrence: recurrent Qualified Code(s): F33.9 - Major depressive disorder, recurrent, unspecified Plan: Continue fluoxetine 40 mg daily Denies si/hi (10) Obesity (BMI 30-39.9): Comment: PATIENT IS MODERATELY OBESE, HE IS AWARE OF THIS ISSUE. HAS NOT BEEN ABLE TO LOSE MUCH WEIGHT. HE IS INSTRUCTED ABOUT. DIET AND IMPORTANCE OF EXERCISE Code(s): E66.9 - Obesity, unspecified Plan: Diet/exercise discussed in detail Encouraged to exercise for at least 30 minutes a day/5 days a week Healthy eating discussed. Encouraged to eat fruits/vegetables, protein-fish/b aked chicken, and to avoid salty/fried foods, sweets, caffeine and carbohydrates. Encouraged to increase water intake 6-8 glasses a day Plan Follow up in 4 months Orders: Orders Comprehensive [place]. Panel Fast 4 Months . - Type 2 diabetes mellitus with other specified complication, N52.1 - Erectile dysfunction due to diseases classified elsewhere, N40.0 - Benign prostatic hyperplasia without lower urinary tract symptoms, E66.9 - Obesity, unspecified, F33.9 - Major depressive disorder, recurrent, unspecified, R79.89 - Other specified abnormal findings of blood chemistry, E55.9 - Vitamin D deficiency, unspecified, I10 - Essential (primary) hypertension, E78.00 - Pure hypercholesterolemia, unspecified Free T4 (Free Thyroxine) 4 Months . - Type 2 diabetes mellitus with other specified complication, N52.1 - Erectile dysfunction due to diseases classified elsewhere, N40.0 - Benign prostatic hyperplasia without lower urinary tract symptoms, E66.9 - Obesity, unspecified, F33.9 - Major depressive disorder, recurrent, unspecified, R79.89 - Other specified abnormal findings of blood chemistry, E55.9 - Vitamin D deficiency, unspecified, I10 - Essential (primary) hypertension, E78.00 - Pure hypercholesterolemia, unspecified Hemoglobin A1c 4 Months . - Type 2 diabetes mellitus with other specified complication, N52.1 - Erectile dysfunction due to diseases classified elsewhere, N40.0 - Benign prostatic hyperplasia without lower urinary tract symptoms, E66.9 - Obesity, unspecified, F33.9 - Major depressive disorder, recurrent, unspecified, R79.89 - Other specified abnormal findings of blood chemistry, E55.9 - Vitamin D deficiency, unspecified, I10 - Essential (primary) hypertension, E78.00 - Pure hypercholesterolemia, unspecified Thyroglobulin 4 Months . - Type 2 diabetes mellitus with other specified complication, N52.1 - Erectile dysfunction due to diseases classified elsewhere, N40.0 - Benign prostatic hyperplasia without lower urinary tract symptoms, E66.9 - Obesity, unspecified, F33.9 - Major depressive disorder, recurrent, unspecified, R79.89 - Other specified abnormal findings of blood chemistry, E55.9 - Vitamin D deficiency, unspecified, I10 - Essential (primary) hypertension, E78.00 - Pure hypercholesterolemia, unspecified Complete Blood Count Auto Diff 4 Months E11.69 - Type 2 diabetes mellitus with other specified complication, N52.1 - Erectile dysfunction due to diseases classified elsewhere, N40.0 - Benign prostatic hyperplasia without lower urinary tract symptoms, E66.9 - Obesity, unspecified, F33.9 - Major depressive disorder, recurrent, unspecified, R79.89 - Other specified abnormal findings of blood chemistry, E55.9 - Vitamin D deficiency, unspecified, I10 - Essential (primary) hypertension, E78.00 - Pure hypercholesterolemia, unspecified Lipid Panel 4 Months . - Type 2 diabetes mellitus with other specified complication, N52.1 - Erectile dysfunction due to diseases classified elsewhere, N40.0 - Benign prostatic hyperplasia without lower urinary tract symptoms, E66.9 - Obesity, unspecified, F33.9 - Major depressive disorder, recurrent, unspecified, R79.89 - Other specified abnormal findings of blood chemistry, E55.9 - Vitamin D deficiency, unspecified, I10 - Essential (primary) hypertension, E78.00 - Pure hypercholesterolemia, unspecified Vitamin D 25-OH Total 4 Months .69 - Type 2 diabetes mellitus with other specified complication, N52.1 - Erectile dysfunction due to diseases classified elsewhere, N40.0 - Benign prostatic hyperplasia without lower urinary tract symptoms, E66.9 - Obesity, unspecified, F33.9 - Major depressive disorder, recurrent, unspecified, R79.89 - Other specified abnormal findings of blood chemistry, E55.9 - Vitamin D deficiency, unspecified, I10 - Essential (primary) hypertension, E78.00 - Pure hypercholesterolemia, unspecified UA CC w/rflx Micro + Cult 4 Months E11.69 - Type 2 diabetes mellitus with other specified complication, N52.1 - Erectile dysfunction due to diseases classified elsewhere, N40.0 - Benign prostatic hyperplasia without lower urinary tract symptoms, E66.9 - Obesity, unspecified, F33.9 - Major depressive disorder, recurrent, unspecified, R79.89 - Other specified abnormal findings of blood chemistry, E55.9 - Vitamin D deficiency, unspecified, I10 - Essential (primary) hypertension, E78.00 - Pure hypercholesterolemia, unspecified Quality Reporting (2019) Depression/Bipolar (159/160/161/177) PHQ-9: Total score: 9 Coding Level of Care Code Medicare Subsequent (G0439) Est Pt Level 4 (11119) Diagnoses Medicare annual wellness visit, initial Z00.00 Pure hypercholesterolemia E78.00 Benign essential hypertension I10 Type 2 diabetes mellitus with other diabetic kidney complication E11.29 Obstructive sleep apnea G47.33 Vitamin D deficiency E55.9 Epidermal inclusion cyst L72.0 Anxiety F41.9 Episode of recurrent major depressive disorder, unspecified depression episode severity F33.9 Active/Remission status: currently active Depression Type: major depressive disorder Major depression episode severity: unspecified Major depression recurrence: recurrent Obesity (BMI 30-39.9) E66.9 Additional Codes PHQ-9 - 89773 - PHQ-9 Billing: Yes ([id number])
== END 2024-06-13 09:53 | disposition home or self-care (01) ==
PROVIDERS: PCP Internal Medicine
DX: Z00.00 Encounter for general adult medical examination without abnormal findings (principal); E11.29 Type 2 diabetes mellitus with other diabetic kidney complication; F33.9 Major depressive disorder, recurrent, unspecified; G47.33 Obstructive sleep apnea (adult) (pediatric); E55.9 Vitamin D deficiency, unspecified; E78.00 Pure hypercholesterolemia, unspecified; I10 Essential (primary) hypertension; L72.0 Epidermal cyst; F41.9 Anxiety disorder, unspecified; E66.9 Obesity, unspecified

== ENCOUNTER → 2024-06-13 08:59 | Outpatient (BNVA) | payer MEDICARE, OTHER, SELFPAY | PROVIDERS: PCP Internal Medicine | DX: Z00.00 Encounter for general adult medical examination without abnormal findings (principal); E78.00 Pure hypercholesterolemia, unspecified; I10 Essential (primary) hypertension; E11.29 Type 2 diabetes mellitus with other diabetic kidney complication; G47.33 Obstructive sleep apnea (adult) (pediatric); E55.9 Vitamin D deficiency, unspecified; F41.9 Anxiety disorder, unspecified; F33.9 Major depressive disorder, recurrent, unspecified; E66.9 Obesity, unspecified; Z68.32 Body mass index [BMI] 32.0-32.9, adult | CPT/HCPCS: 96127; 99212 ==

== ENCOUNTER 2024-06-27 08:51 | Outpatient (AMB) | payer MEDICARE, OTHER, SELFPAY ==
--- NOTE | 2024-06-27 08:56 | MHC.OFFVIS ---
Vital Signs 06/27/24 08:58 Height 5 ft 10 in Weight 223 lb 5.993 oz BMI 32.0 Intake Visit Reasons: s/p cyst back (off proc) Intake Note: This patient presents suture removal status post excision epidermal inclusion cyst mid-back (06/12/2024). Pt c/o; no new concerns. Business Leader Required: No Accompanied by: Self / Same As Patient Allergies No Known Allergies Allergy (Verified 06/27/24 08:58) HPI HPI s/p cyst back (off proc): Details: He underwent excision of a cyst from the back under local anesthesia last 06/12/2024 here in the office. He says he is doing well and denies complaints. [facility] Medical History (Updated 06/27/24 @ 09:11 by Harjeet Ribera MD) Epidermoid cyst of skin of back Epidermal inclusion cyst Abscess of back Restless leg syndrome Obesity (BMI 30-39.9) Depression Panic disorder [episodic paroxysmal anxiety] Anxiety Alcohol abuse, in remission Hypotestosteronism Obstructive sleep apnea Low TSH level Vitamin D deficiency Lumbar degenerative disc disease Benign essential hypertension Pure hypercholesterolemia Proteinuria, unspecified Type 2 diabetes mellitus with other diabetic kidney complication Surgical History History of excision of epidermal inclusion cyst (~06/12/24) Hx of colonoscopy History of removal of cyst Family History Father Medical history unknown Adopted Mother Medical history unknown Adopted Social History Household Members: Spouse Housing: House Alcohol intake: never Patient Tobacco Use Status: Never used Tobacco e-Cigarette/Vaping Use: Never Used Second Hand Smoke Exposure: Yes Substance Use Type: Marijuana service: No Current occupational status: retired Cognitive needs: No Hearing needs: No Vision needs: Yes Review of Systems Const Denies chills and Denies fever(s) Physical Exam Vital Signs: BMI result Body Mass Index 32.0 Const General: comfortable and no acute distress Resp Effort & Inspection: normal respiratory effort Back/Spine/Pelvis Other: Excision site well healed, not infected, sutures in place Assessment & Plan Assessment & Plan (1) Epidermoid cyst of skin of back: Code(s): L72.0 - Epidermal cyst Category: Medical Plan: Status post excision of a back cyst. The path report actually shows a spiradenoma which is a benign condition as well. I removed his sutures. The wound edges remained well apposed. He can follow up on a p.r.n. basis. Coding Level of Care Code Global (63212) Diagnoses Epidermoid cyst of skin of back L72.0
[2024-06-27 08:58] VITALS: BMI 32.0
== END 2024-06-27 09:22 | disposition home or self-care (01) ==
PROVIDERS: PCP Internal Medicine; Visit Provider Surgery
DX: L72.0 Epidermal cyst (principal)
CPT/HCPCS: 99024

== ENCOUNTER → 2024-06-27 08:51 | Outpatient (BNVA) | payer MEDICARE, OTHER, SELFPAY | PROVIDERS: PCP Internal Medicine; Visit Provider Surgery | DX: Z09 Encounter for follow-up examination after completed treatment for conditions other than malignant neoplasm (principal); Z87.2 Personal history of diseases of the skin and subcutaneous tissue | CPT/HCPCS: 99212 ==

== ENCOUNTER 2024-10-01 09:35 | Outpatient (REF) | payer MEDICARE, OTHER, SELFPAY ==
--- OUTSIDE RECORDS SUMMARY | 2024-10-01 10:36 | XMS_ITS | Clinical Summary ---
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 06/10/2020 Active FLUoxetine (PROZAC) 40 MG capsule Take by mouth daily. 05/19/2020 Active lisinopril (PRINIVIL,ZESTRIL) 40 MG tablet Take 40 mg by mouth daily. 05/19/2020 Active metFORMIN (GLUCOPHAGE) 1000 MG tablet Take 1,000 mg by mouth 2 (two) times a day with meals. 06/10/2020 Active simvastatin (ZOCOR) 40 MG tablet Take 40 mg by mouth nightly at bedtime. 05/19/2020 Active blood glucose control, normal (ONETOUCH ULTRA CONTROL) SolnIndications:Typ e 2 diabetes mellitus with microalbuminuria, without long-term current use of insulin 1 each by Miscellaneous route as needed. 1 each 1 08/18/2020 Active ONETOUCH UKTRA2 meter kitIndications:Type 2 diabetes mellitus with microalbuminuria, without long-term current use of insulin Use as instructed 1 each 12/25/2020 Active aspirin 81 MG EC tablet Take 81 mg by mouth daily. Active finasteride (PROSCAR) 5 mg tablet Take 5 mg by mouth daily. Active tadalafiL (CIALIS) 10 MG tablet Take 10 mg by mouth daily as needed for erectile dysfunction. Active ONETOUCH ULTRA TEST Strp stripsIndications:T ype 2 diabetes mellitus with microalbuminuria, without long-term current use of insulin 1 each by Miscellaneous route 3 (three) times a day before meals. E11.29 300 strip 3 01/12/2024 Active glipiZIDE (GLUCOTROL XL) 5 MG 24 hr tabletIndications:T ype 2 diabetes mellitus with microalbuminuria, without long-term current use of insulin Take 1 tablet (5 mg total) by mouth daily. E11.29 90 tablet 3 07/26/2024 Active BASAGLAR KWIKPEN U-100 INSULIN 100 unit/mL (3 mL) InPn injection penIndications:Type 2 diabetes mellitus with microalbuminuria, without long-term current use of insulin Inject 30 Units under the skin nightly at bedtime. DX:E11.29 30 mL 3 07/26/2024 Active BD BRANDON 2ND GEN PEN NEEDLE 32 gauge x 5/32 NdleIndications:Typ e 2 diabetes mellitus with microalbuminuria, without long-term current use of insulin USE ONCE DAILY.DX:E11.29 100 each 3 07/26/2024 Active MOUNJARO 10 mg/0.5 mL PnIj subcutaneous penIndications:Type 2 diabetes mellitus with microalbuminuria, without long-term current use of insulin Inject 0.5 mL (10 mg total) under the skin once a week. E11.29 6 mL 1 07/26/2024 Active Active Problems Problem Noted Date Diagnosed Date Primary hypertension 07/10/2023 Assessment & Plan (07/26/2024 1:19 PM EST): Blood pressure is borderline today Most recent GFR >60 based on labs from spring 2023, most recent labs are not available for review Blood sugar control is improved in the recent past Continues on ACEi SGLT2i therapy is also providing renal benefits Assessment & Plan (01/12/2024 12:21 PM EDT): Blood pressure is reasonably well controlled Most recent GFR >60 based on labs from 2022, most recent labs are not available for review Blood sugar control is improved in the recent past Continues on ACEi SGLT2i therapy is also providing renal benefits Assessment & Plan (07/10/2023 9:46 AM EST): Blood pressure is reasonably well controlled Most recent GFR >60 based on labs from early 2022, most recent labs are not available for review Continues on ACEi SGLT2i therapy is also providing renal benefits Overweight 07/10/2023 Assessment & Plan (07/26/2024 1:16 PM EST): Modest weight loss since our last visit last summer, BMI ~29 Total weight loss is ~20lb since summer 2022 Continues to tolerate Mounjaro reasonably well Assessment & Plan (01/12/2024 12:19 PM EDT): Continues on antihyperglycemic medication regimen which is providing weight loss benefit BMI is now <30 since visit in October, this has been maintained We discussed importance of healthy lifestyle to help achieve weight loss goals Weight loss will help improve insulin sensitivity and improve overall glucose control Assessment & Plan (07/10/2023 9:48 AM EST): Continues on antihyperglycemic medication regimen which is providing weight loss benefit We discussed importance of healthy lifestyle to help achieve weight loss goals Weight loss will help improve insulin sensitivity and improve overall glucose control J CARLOS (obstructive sleep apnea) 07/10/2023 Assessment & Plan (07/10/2023 9:53 AM EST): Uses CPAP consistently Working with sleep medicine at [facility] Type 2 diabetes mellitus wit h microalbuminuria, without long-term current use of insulin 10/16/2019 Assessment & Plan (07/26/2024 1:23 PM EST): Christian is currently on basal insulin, RAMOS, GLP1/GIP, SGLT2i and Metformin, he is tolerating these well, Christian has continued to do well with keeping active and is trying to be more mindful about healthy eating He will continue Mounjaro at 10mg weekly, this is likely to continue to impact his insulin sensitivity, Christian is advised to continue to be cognizant of increased frequency of lower or low glucose which has occurred in the past due to improved lifestyle habits and is likely to continue to occur due to RAMOS therapy which we revisited today, he is encouraged to discontinue of this if he finds that activity is increased in the warmer weather We reviewed CGM alerts and Christian is made aware that his low alert is set at 70 and the volume on this is set at HIGH , we discussed keeping high alerts off at this time Christian's challenge remains a tendency toward bingeing on unhealthy snacks particularly in the evening, he has done better with this and this has been much more rare, when he is more consistent with not doing this his morning blood sugars are lower Christian continues to do well with sobriety We will follow up in 6 months, Christian will also return to meet with Marisa Shafer in 3 months, he is encouraged to contact us with any questions or concerns in the interim Assessment & Plan (01/12/2024 12:31 PM EDT): Christian is currently on basal insulin, RAMOS, GLP1/GIP, SGLT2i and Metformin, he is tolerating these well, Christian has been doing well with keeping active and is trying to be more mindful about healthy eating We discussed an adjustment to Mounjaro optimizing this from 7.5mg to 10mg weekly, we discussed impact on insulin sensitivity and glucose control with this change, Christian is advised to look for increased frequency of lower or low glucose which has occurred in the recent past due to improved lifestyle habits and is likely to continue to occur due to RAMOS therapy, he is encouraged to trial a lower dose of Glipizide, 5mg rather than 10mg daily now, and discontinue of this altogether when he increases to higher dose of Mounjaro Christian's challenge remains a tendency toward bingeing on unhealthy snacks particularly in the evening, he has done better with this, when he is more consistent with not doing this his morning blood sugars are lower Christian continues to do well with sobriety, 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 No frequent or severe hypoglycemia. He had an episode of hypoglycemia yesterday, he thinks this might have been due to eating better over the last few days. He corrected with something to eat and then was fine. He is trying to prevent his normal slipping in his habbits and try to stay on the right track of dietary choices and activity. Discussed increasing his mounjaro but he wants to wait and see if he can continue on his own with the improvements.Will maintain his regimen. Continue to work on eating healthier and being active. To call or message with any issues managing his glucose levels. Up to date with [facility] Assessment & Plan (07/10/2023 9:52 AM EST): Christian is currently on basal insulin, RAMOS, GLP1/GIP, SGLT2i and Metformin, he is tolerating these well but continues to have generally elevated readings and unfortunately his lifestyle and motivation fluctuate at times resulting in poor habits, currently he is doing well with keeping active and is trying to be more mindful about healthy eating We discussed an adjustment to Mounjaro optimizing this from 5mg weekly to 7.5mg weekly, we discussed impact on insulin sensitivity and glucose control with this change, Christian is advised to look for increased frequency of lower or low glucose which is likely to be due to RAMOS therapy as we optimize other more effective medications, he is encouraged to trial a lower dose of Glipizide, 5mg rather than 10mg daily, or trial a discontinuation of this altogether if he notes lower trends Christian's challenge remains a tendency toward bingeing on unhealthy snacks particularly in the evening, when he does better with this his morning blood sugars are lower Christian continues to do well with sobriety We will follow up in 6 months, Christian will also return to meet with Kasey Cobos in 3 months, he is encouraged to contact us with any questions or concerns in the interim Assessment & Plan (01/06/2023 2:27 PM EDT): Christian is currently on basal insulin, RAMOS, GLP1ra, SGLT2i and Metformin, he is tolerating these well but continues to have generally elevated readings and unfortunately his lifestyle is poor in general though he is trying to improve this We did not adjust any of his therapy regimen except a change from Trulicity to Ozempic which may be more effective in helping manage appetite and satiety, we spent time discussing getting back to more regular activity, taking time to be slow and steady in his increase in duration/intensity, and more consistent healthier eating Christian's challenge remains a tendency toward bingeing on unhealthy snacks at times, when he does better with this his morning blood sugars are lower but still above goal; recent stressors have impacted his lifestyle habits and he is now looking forward to getting back on track We discussed that going back to alcohol intake with intent to curb sugar cravings is not a good idea We will follow up in 6 months, Christian has an upcoming appt with Kasey Cobos in 3 months and he is encouraged to contact us with any questions or concerns in the interim Assessment & Plan (07/05/2022 9:45 AM EST): Christian is currently on basal insulin, RAMOS, GLP1ra, SGLT2i and Metformin, he is tolerating these well but continues to have elevated morning readings and generally poor lifestyle We did not adjust his therapy regimen at this time and spent much of our time discussing getting back to more regular activity and healthier eating Christian's biggest challenge is fairly regular bingeing on unhealthy snacks at night, when he does better with this his morning blood sugars are lower but still above goal; recent stressors have impacted his lifestyle habits and he is now looking forward to getting back on track We placed a new FSL2 sensor on Christian today so he can resume continuous glucose monitoring as he tries to improve on his lifestyle habits We will follow up in 6 months, Christian has an upcoming appt with Kasey Cobos in 3 months and he is encouraged to contact us with any questions or concerns in the interim Assessment & Plan (02/22/2022 2:10 PM EDT): We reviewed CGM data together. Most at risk for hypoglycemia in mid to late afternoon, though generally avoids actual hypoglycemia. Generally just one prandial rise during the day otherwise remains relatively close to target range, there is a gap in data in the evening in general Christian is currently on basal insulin, RAMOS, GLP1ra, SGLT2i and Metformin, he is tolerating these well but continues to have elevated morning readings. Could benefit from an increase in basal insulin to optimize overnight readings somewhat but most of this will be affected by his lifestyle habits later in the day Christian's biggest challenge continues to be fairly regular unhealthy snacks at night, when he does better with this his morning blood sugars are lower but still above goal, we revisited other options to try that are lower carb. Christian eats a healthy diet otherwise so he is urged to work on this portion of the and improvements at that time will likely lead to improved FPG Encouraged continuation of home CGM use to help make lifestyle adjustments Diabetes care and management also seems to be weighing on Bill and overall mental health, we talked about different therapy options today and Christian is considering meeting with a therapist. Christian is encouraged to check with insurance on covered providers in our area Christian will follow up in 1 month with Kasey and in June with Dr. Boyce, but is encouraged to contact me with any questions or concerns in the interim Assessment & Plan (01/11/2022 3:51 PM EDT): We reviewed CGM data together Most at risk for hypoglycemia in mid to late afternoon Otherwise prandial rises in the mid morning and in the evening, though some days remains relatively close to target range Christian is currently on basal insulin, RAMOS, GLP1ra, SGLT2i and Metformin, he is tolerating these well but continues to have elevated morning readings We discussed an increase in basal insulin to optimize overnight readings somewhat but most of this will be affected by his lifestyle habits later in the day We also discussed trialing decreasing glipizide given highest risk for lows in the afternoon Christian's biggest challenge is fairly regular unhealthy snacks at night, when he does better with this his morning blood sugars are lower but still above goal, we discussed other options to try that are lower carb Christian eats a healthy diet otherwise so he is urged to work on this portion of the and improvements at that time will likely lead to improved FPG Christian opted to hold off on any medication adjustments today, opting for personal CGM to help make lifestyle adjustments, encouraged to only take glipizide if eating as risk for hypoglycemia will be higher if skipping a meal Christian will follow up in 6 weeks, but is encouraged to contact me with any questions or concerns in the interim Assessment & Plan (12/28/2021 10:33 AM EDT): Christian is currently on basal insulin, RAMOS, GLP1ra, SGLT2i and Metformin, he is tolerating these well but continues to have elevated morning readings which is likely mostly related to his eating habits at night We did not adjust his basal insulin dosage to optimize overnight readings and discussed the rationale for this with respect to his lifestyle, we discussed repeating a CGM pro to evaluate patterns overnight and during the day, we will make adjustments to medications based on this Previous CGM pro indicated GMI 7.4% and much better control than A1c would have suggested at the time We discussed importance of consistency in eating and activity, if Christian prefers to have snacks at night then we can adjust insulin dosing to this but he will need to be consistent with this, ideally reducing evening eating would be the best approach My hope is still to eliminate RAMOS therapy from Christian's regimen as this will put him at risk for hypoglycemia when glucose control is more optimal, but Christian will continue this at this time We will follow up in two weeks to discuss CGM pro results, Christian is encouraged to contact me with any questions or concerns in the interim CGM Trial Type of Diabetes: Diabetes mellitus Type 2 Procedures: Glucose Monitoring: Type of Sensor: Freestyle Yehuda Pro Instruction: Patient Instructed on:, Calibrations, When to test BS, Troubleshooting, What to expect with the sensor, Patient instructed to remove sensor if redness, pain or bleeding occurs. Insertion Site Selected: rt arm Site Prep: Insertion site wiped with alcohol. Insertion: completed, area looks good, no redness, no bleeding. Plan: Patient will remove sensor and return in 2 weeks for follow up appointment. Assessment & Plan (06/29/2021 12:53 PM EST): Christian is currently on basal insulin, RAMOS, GLP1ra, SGLT2i and Metformin, he is tolerating these well but continues to have elevated morning readings We discussed an increase in basal insulin to optimize overnight readings somewhat but most of this will be affected by his lifestyle habits later in the day My hope is still to eliminate RAMOS therapy from Christian's regimen as this will put him at risk for hypoglycemia when glucose control is more optimal Christian's biggest challenge is fairly regular bingeing on unhealthy snacks at night, when he does better with this his morning blood sugars are lower but still above goal We discussed CBT approaches to changing eating patterns at night either by meeting with mental health provider or using an serge like [employer], Christian eats a healthy diet otherwise so he is urged to work on this portion of the and improvements at that time will likely lead to improved FPG Christian is encouraged to contact me with any questions or concerns in the interim Assessment & Plan (12/27/2020 2:26 PM EDT): Christian is currently on basal insulin, RAMOS, GLP1ra, SGLT2i and Metformin We discussed optimized dosage of GLP1ra therapy, Trulicity increase from 1.5mg weekly to 3mg weekly, Christian has several weeks of 1.5mg dosage pens and will complete this prior to starting trial of 3mg dosage In the meantime prior to Trulicity dose increase, Christian will monitor blood sugars in the fasting state (prior to his coffee) and compare this to his current timing which is after his coffee intake in the morning, he will also assess FPG when he has not had a snack in the evening and compare this to his FPG after he usually does have a snack Based on the data he gathers, we will make adjustments in his medication regimen, my first priority will be to discontinue RAMOS therapy and optimize basal insulin if needed based on FPG determinations, Trulicity optimized dosage should help prandial glucose control Christian is encouraged to do his best with healthy eating and staying active We will be in touch in 2 weeks to discuss his glucose data and again after he begins higher dose of Trulicity, we will follow up in the office in 6 months, Christian is encouraged to contact me with any questions or concerns in the interim Assessment & Plan (08/18/2020 1:30 PM EDT): We reviewed CGM data together It appears fairly clear that Christian was benefiting from RAMOS therapy, we discussed adding this back in a form that will be safer than Glyburide vs considering basal insulin, due to Christian's needle phobia we elected to resume RAMOS, davidson start Glipizide 10mg once daily in the morning We will consider adding an evening dose OR changing to ER formulation if FPG are elevated Will continue other therapy as prescribed -- Metformin 2g daily, Trulicity 1.5mg weekly and Farxiga 10mg daily Encouraged to continue being active and continue efforts at healthy eating, lowering carbs at breakfast may be helpful We will meet in 3-4 months, encouraged to call with any questions or concerns Assessment & Plan (08/05/2020 9:43 PM EST): Christian is on a five drug antihyperglycemic medication regimen, we discussed each of these and adjusted them for more optimal effect Christian is advised to stop Tradjenta since he is on GLP1ra, we optimized the dose of Trulicity to 1.5mg once weekly We discussed discontinuation of Glyburide due to its potential for hypoglycemia, weight gain and the very long duration of this medication We discussed the likely significant benefit of basal insulin on improving FPG and glycemic control in general, 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 and this may prove very challenging for him but though hesitant he is not resistant and we will revisit this if his glucose patterns continue to indicate that this will be an effective approach We discussed CGM trial to evaluate glucose patterns more effectively, this will help us consider the most appropriate medication approach to bringing glucose under better control We had a lengthy discussion regarding lifestyle approaches which support good glucose control including diet, exercise and sleep -- we discussed healthy balanced diet and portion control, we discussed the effect of GLP1ra therapy in causing early satiety and reducing appetite, Christian is encouraged to watch his portions and to try not to eat beyond the time he feels full, starting with smaller portions to begin with will help him control his intake, we discussed importance of more regular activity, daily if possible, particularly since Christian has noted improvement in glucose after being active, we also discussed the effect of sleep on glucose control and insulin sensitivity, Christian uses CPAP consistently and we discussed the benefits of this Christian will continue his current doses of Farxiga and Metformin which are at optimal doses Farxiga provides cardiovascular benefits and, in light of Christian's nephropathy, also provides renal protection Christian will return in 2 weeks for discussion of his CGM data, we will further adjust his antihyperglycemic medication as needed based on these results CGM Trial Type of Diabetes: Diabetes mellitus Type 2 Procedures: Glucose Monitoring: Type of Sensor:Yehuda pro Instruction: Patient Instructed on:, Calibrations, When to test BS, Troubleshooting, What to expect with the sensor, Patient instructed to remove sensor if redness, pain or bleeding occurs. . Insertion Site Selected: arms, right Site Prep: Insertion site wiped with alcohol. Insertion: completed, area looks good, no redness, no bleeding. Plan: Procedure Codes: 71688 Glucose monitoring, cont Encounters Date Type Department Care Team Description 07/26/2024 9:00 AM EST Office Visit [address] [place] [address] Noemi Boyce MD Primary hypertension (Primary Dx); Type 2 diabetes mellitus with microalbuminuria, without long-term current use of insulin; Overweight 07/24/[address] [place] [address] Noemi Boyce MD Medication Refill from Last 3 Months Immunizations Name Administration Dates Next Due COVID-19 (Pre-03/27) Pfizer Vaccine, mRNA, PF 08/20/2020,07/29/2020 Influenza Quadrivalent Adjuv anted Preservative Free IM 03/05/2021 Influenza Quadrivalent Prese rvative Free IM 03/10/2020,04/30/2019,03/21/2018,05/16 Pneumococcal polysaccharide PPSV23 05/18/2020, Tdap 05/18/2020,06/16/2009 Social History Tobacco Use Types Packs/Day Years Used Date Smoking Tobacco: Never Passive Smoke Exposure: Never Smokeless Tobacco: Never Tobacco Cessation:Counseling Given: No Alcohol Use Standard Drinks/Week Comments Not Currently 0 (1 standard drink = 0.6 oz pur e alcohol) Education Answer Date Recorded Are you interested in more education? Not on neftaly e 09/30/2022 Are you concerned about learning? Not on file 09/30/2022 No 09/30/2022 No 09/30/2022 Digital Access Answer Date Recorded No 10/28/2022 No 10/28/2022 Reliable internet access at home? Not on file 10/28/2022 Device with a working camera? Not on file Sex and Gender Information Value Date Recorded Sex Assigned at Male 10/15/2019 6:17 PM EDT Gender Identity Male 10/15/2019 6:17 PM EDT Sexual Orientation Straight 10/15/2019 6: 17 PM EDT Last Filed Vital Signs Vital Sign Reading Time Taken Comments Blood Pressure 130/60 07/26/2024 8:59 AM EST Pulse 81 07/26/2024 8:59 AM EST Temperature 36.2 ??C (97.1 ??F) 01/12/2024 8:57 AM ED T Respiratory Rate - - Oxygen Saturation 97% 01/12/2024 8:57 AM EDT Inhaled Oxygen Concentration - - Weight 97.5 kg (215 lb) 07/26/2024 8:59 AM EST Height 182.9 cm (6' 0.01 ) 07/26/2024 8:59 AM ES T Body Mass Index 29.15 07/26/2024 8:59 AM EST Plan of Treatment Upcoming Encounters Date Type Department Care Team (Late st Contact Info) Description 10/24/2024 9:00 AM EDT Nutrition [employer] Diabetes [address] [place] [address] Noemi Boyce MD [address] [place] [address] Marisa Shafer LDN [address] [place] [address] 02/05/2025 9:40 AM EDT Office Visit [facility] [address] [place] [address] Noemi Boyce MD [address] [place] [address] Health Maintenance Due Date Last Done Comments DEPRESSION SCREENING 1967 HEPATITIS B SCREENING 1973 HEPATITIS C SCREENING 1973 COLOGUARD 2000 COLONOSCOPY 2000 COLORECTAL CANCER SCREENING 2000 FIT TEST 2000 FOBT 2000 SIGMOIDOSCOPY 2000 VIRTUAL COLONOSCOPY 2000 ZOSTER VACCINES (1 of 2) 2005 DIABETIC EYE EXAM 10/16/2019 PNEUMOCOCCAL VACCINES (50+ years) (2 of 2 - PCV) 05/18/2021 05/18/2020, 04/30/2019 POTASSIUM LEVEL 08/10/2023 08/09/2022, 12/10/2021 HEMOGLOBIN A1C 09/08/2024 06/10/2024, 08/0 09/2022, 08/09/2022, Additional history exists CREATININE LEVEL 09/12/2024 09/13/2023, , 11/02/2021, Additional history exists BLOOD PRESSURE 01/23/2025 07/26/2024 Adult Td,Tdap Booster 05/18/2030 05/18/2020, 010 RSV VACCINE Completed 03/27/2023 SMOKING STATUS SCREENING (Once After 26 Yrs) Completed 01/12/2024 COVID-19 VACCINE Completed 03/26/2024, , 04/04/2022, Additional history exists INFLUENZA VACCINE Completed 03/26/2024, , 04/04/2022, Additional history exists HEPATITIS A VACCINES Aged Out No long er eligible based on patient's age to complete this topic HEPATITIS B VACCINES Aged Out No long er eligible based on patient's age to complete this topic HIB VACCINES Aged Out No longer eligi ble based on patient's age to complete this topic MENINGOCOCCAL VACCINES (ACWY) Aged Out No longer eligible based on patient's age to complete this topic Medical Devices Not on file Procedures Procedure Name Priority Date/Time Associated Diagnosis Comments OUTSIDE HEMOGLOBIN A1C Routine 06/10/2024 COMPREHENSIVE METABOLIC PANEL Routine 09/13/2023 7:55 AM EDT OUTSIDE POTASSIUM LEVEL Routine 08/09/2022 from Last 3 Months or Most Recently Relevant to Health Maintenance Results * Outside HbA1c (06/10/2024) Hemoglobin A1c - External 8.3 % Historical Provider LAB BLOOD ORDERAB LES * Comprehensive metabolic panel (09/13/2023 7:55 AM EDT) Historical Provider LAB BLOOD ORDERAB LES * Outside Potassium Level (08/09/2022) Potassium level - External 4.8 3.4 - 5.0 mmol/L Historical Provider LAB BLOOD ORDERAB LES from Last 3 Months or Most Recently Relevant to Health Maintenance Care Teams Vmware Engineer Relationship Specialty Start Date End Date Mulugeta Crowder MD [address] [place] [address] Dr [address] [place] [address] PCP - General Internal Medicine 09/20/19 Additional Source Comments The information contained in this document represents components of the legal health record. It is not the complete legal health record.[facility]
--- OUTSIDE RECORDS SUMMARY | 2024-10-01 10:36 | XMS_ITS | Encounter Summary ---
Author Organization [facility] Address [address] [facility] [address] [place] [address] Phone Care Team Providers Care Auto Seat Cover Installer Name Role Phone Mulugeta Crowder MD Primary Care Provider [phone] Encounter Details Date Type Department Care Team (Late st Contact Info) Description 10/09/2020 Telephone [facility] [address] [place] [address] [place] [address] Kasey Cobos LDN [email or web address] Social History Tobacco Use Types Packs/Day Years Used Date Smoking Tobacco: Never Smokeless Tobacco: Never Sex and Gender Information Value Date Recorded Sex Assigned at Male 10/15/2019 6:17 PM EDT Gender Identity Male 10/15/2019 6:17 PM EDT Sexual Orientation Straight 10/15/2019 6: 17 PM EDT documented as of this encounter Plan of Treatment Upcoming Encounters Date Type Department Care Team (Late st Contact Info) Description 10/24/2024 9:00 AM EDT Nutrition [facility] [address] [facility] [place] [address] Noemi Boyce MD [address] [facility], 1st [place] [address] Marisa Shafer LDN [address] [place] [address] 02/05/2025 9:40 AM EDT Office Visit [facility] [address] [place] [address] Noemi Boyce MD [address] [facility], 1st [place] [address] documented as of this encounter Visit Diagnoses Not on filedocumented in this encounter Care Teams Auto Seat Cover Installer Relationship Specialty Start Date End Date Mulugeta Crowder MD [address] [place] [address] PCP - General Internal Medicine 09/20/19 documented as of this encounter Additional Source Comments The information contained in this document represents components of the legal health record. It is not the complete legal health record.[facility]
[2024-10-01 13:06] LABS: MANUAL DIFF FLAG NO
[2024-10-01 13:19] LABS: Appearance Urine Cloudy; Color Urine Yellow; Glucose Urine UA >=1000 mg/dL (Negative); Leukocyte Esterase Urine Negative (Negative); Nitrite Urine Negative (Negative); Specific Gravity - Urine >= 1.030 (1.005-1.025); UMIC TRIGGER UACC YES; Urine Blood Negative (Negative); Urine Ketones Negative (Negative); Urine Protein Trace mg/dL (Neg-Trace)
[2024-10-01 13:21] LABS: Bacteria Urine None Seen (None Seen); Hyaline Casts Urine 0-2 /LPF (0-2); RBC Urine 0-2 /HPF (0-2); Squamous Epithelial Cell Urine 0-2 /HPF (0-2); WBC Urine 0-5 /HPF (0-5)
[2024-10-01 13:23] LABS: Basophils Percent Auto 0.5 % (0-2); Eosinophils Absolute Auto 0.1 X10*3/uL (0.0-0.4); Eosinophils Percent Auto 1.3 % (0-4); Hematocrit 46.4 % (42.0-52.0); Hemoglobin 14.6 g/dl (14.0-18.0); Imm Gran Abs Auto 0.03 X10*3/uL (0.00-0.03); Imm Gran Pct Auto 0.4 % (0.0-0.4); Lymphocytes Absolute Auto 1.7 X10*3/uL (1.2-4.9); Mean Corpuscular HGB Conc 31.5 g/dl (31.0-36.0); Mean Corpuscular Hemoglobin 27.7 pg (27.0-33.0); Mean Platelet Volume 10.7 fL (9.4-12.4); Monocytes Absolute Auto 0.8 X10*3/uL (0.1-1.2); Monocytes Percent Auto 10.6 % (2-11); Neutrophils Absolute Auto 4.8 x10*3/uL (2.0-8.3); Neutrophils Percent Auto 64.2 % (45-73); Platelet Count 213 X10*3/uL (160-400); Red Blood Count 5.27 X10*6/uL (4.60-5.80); Red Cell Distribution Width 13.2 % (11.0-16.0); White Blood Count 7.4 X10*3/uL (4.8-10.8)
[2024-10-01 13:35] LABS: Estimated Average Glucose 177 mg/dL; Hemoglobin A1C 231.1086 umol/L; Hemoglobin A1c % 7.8 % (<6.0); Total Hemoglobin (HGBA1C) 3743.7062 umol/L
[2024-10-01 13:56] LABS: Prostate Specific Antigen 1.59 ng/mL (<0.05-4.0)
[2024-10-01 14:02] LABS: Alanine Aminotransferase 31 U/L (0-40); Albumin Level 4.4 g/dL (3.5-5.0); Alkaline Phosphatase 75 U/L (39-117); Anion Gap 14 (12-20); Aspartate Amino Transferase 23 U/L (5-37); Bilirubin Total 0.6 mg/dL (0.0-1.0); Blood Urea Nitrogen 26 mg/dL (9-16); Calcium 9.6 mg/dL (8.4-10.2); Carbon Dioxide 27 mmol/L (22-29); Chloride 102 mmol/L (96-108); Cholesterol 129 mg/dL (<200); Estimated Glomerular Filt Rate > 60; Free T4 (Free Thyroxine) 0.93 ng/dL (0.71-1.85); Glucose Fasting 150 mg/dL (60-99); HDL Cholesterol 53 mg/dL (>40); LDL Cholesterol Calculated 60 mg/dL (<100); Potassium 4.6 mmol/L (3.3-5.1); Sodium 138 mmol/L (135-145); Total Protein 7.3 g/dL (6.5-8.0); Triglycerides 82 mg/dL (<150)
[2024-10-02 18:03] LABS: Thyroglobulin 10.8 ng/mL
== END 2024-10-01 09:36 | disposition home or self-care (01) ==
LOC: HO.HMGCLDS 09:35
PROVIDERS: Nurse Practitioner Family; PCP Internal Medicine; Visit Provider Internal Medicine
DX: N40.0 Benign prostatic hyperplasia without lower urinary tract symptoms (principal); E11.69 Type 2 diabetes mellitus with other specified complication; N52.1 Erectile dysfunction due to diseases classified elsewhere; E66.9 Obesity, unspecified; F33.9 Major depressive disorder, recurrent, unspecified; R79.89 Other specified abnormal findings of blood chemistry; E55.9 Vitamin D deficiency, unspecified; I10 Essential (primary) hypertension; E78.00 Pure hypercholesterolemia, unspecified; Z12.5 Encounter for screening for malignant neoplasm of prostate
CPT/HCPCS: 36415; 80053; 80061; 81001; 82306; 83036; 84153; 84432; 84439; 85025

== ENCOUNTER 2024-10-14 08:23 | Outpatient (AMB) | payer MEDICARE, OTHER, SELFPAY ==
--- OUTSIDE RECORDS SUMMARY | 2024-10-14 08:26 | XMS_ITS | Clinical Summary ---
Author Organization [facility] Address [address] [employer] [address] [address] Phone Care Team Providers Care Legal Document Assistant Name Role Phone Mulugeta Corwder MD Primary Care Provider [phone] Allergies No known active allergies Medications FARXIGA 10 mg tablet Take 10 mg by mouth daily. 06/10/19 21 Active FLUoxetine (PROZAC) 40 MG capsule Take by mouth daily. 05/19/20 20 Active lisinopril (PRINIVIL,ZESTRI L) 40 MG tablet Take 40 mg by mouth daily. 05/19/20 20 Active metFORMIN (GLUCOPHAGE) 1000 MG tablet Take 1,000 mg by mouth 2 (two) times a day with meals. 06/10/19 21 Active simvastatin (ZOCOR) 40 MG tablet Take 40 mg by mouth nightly at bedtime. 05/19/20 20 Active blood glucose control, normal (ONETOUCH ULTRA CONTROL) SolnIndications: Type 2 diabetes mellitus with microalbuminuria , without long-term current use of insulin 1 each by Miscellaneous route as needed. 1 each 1 08/19/19 21 Active ONETOUCH UKTRA2 meter kitIndications:T ype 2 diabetes mellitus with microalbuminuria , without long-term current use of insulin Use as instructed 1 each 12/26/19 21 Active aspirin 81 MG EC tablet Take 81 mg by mouth daily. Active finasteride (PROSCAR) 5 mg tablet Take 5 mg by mouth daily. Active tadalafiL (CIALIS) 10 MG tablet Take 10 mg by mouth daily as needed for erectile dysfunction. Active ONETOUCH ULTRA TEST Strp stripsIndication s:Type 2 diabetes mellitus with microalbuminuria , without long-term current use of insulin 1 each by Miscellaneous route 3 (three) times a day before meals. E11.29 300 strip 3 01/12/20 24 Active glipiZIDE (GLUCOTROL XL) 5 MG 24 hr tabletIndication s:Type 2 diabetes mellitus with microalbuminuria , without long-term current use of insulin Take 1 tablet (5 mg total) by mouth daily. E11.29 90 tablet 3 07/26/19 25 Active BASAGLAR KWIKPEN U-100 INSULIN 100 unit/mL (3 mL) InPn injection penIndications:T ype 2 diabetes mellitus with microalbuminuria , without long-term current use of insulin Inject 30 Units under the skin nightly at bedtime. DX:E11.29 30 mL 3 07/26/19 25 Active BD BRANDON 2ND GEN PEN NEEDLE 32 gauge x 5/32 NdleIndications: Type 2 diabetes mellitus with microalbuminuria , without long-term current use of insulin USE ONCE DAILY.DX:E11.29 100 each 3 07/26/19 25 Active MOUNJARO 10 mg/0.5 mL PnIj subcutaneous penIndications:T ype 2 diabetes mellitus with microalbuminuria , without long-term current use of insulin Inject 0.5 mL (10 mg total) under the skin once a week. E11.29 6 mL 1 07/26/19 25 Active Active Problems Problem Noted Date Diagnosed [...] CPAP consistently Working with sleep medicine at [facility] Type 2 diabetes mellitus wit h microalbuminuria, [...] his glucose levels. Up to date with [facility] Assessment & Plan (07/10/2023 9:52 AM EST): [...] health provider or using an serge like [employer], Christian eats a healthy diet otherwise so [...] no redness, no bleeding. Plan: Procedure Codes: 55718 Glucose monitoring, cont Encounters Date Type Department Care Team Description 07/26/2024 9:00 AM EST Office Visit [facility] [address] [place] [address] Noemi Boyce MD Primary hypertension (Primary Dx); Type 2 diabetes mellitus with microalbuminuria, without long-term current use of insulin; Overweight 07/24/2024 Refill [facility] [address] [place] [address] Noemi Boyce MD Medication Refill from Last 3 Months Immunizations Immunization Administration Dates Next Due COVID-19 (Pre-03/27) Pfizer [...] Assigned at Male 10/15/2019 6:17 PM EDT Legal Sex Male 9:13 AM EDT Gender Identity Male 10/15/2019 6:17 PM [...] Info) Description 10/24/2024 9:00 AM EDT Nutrition [facility] [address] [place] [phone] Noemi Boyce MD [address] [place] [address] Marisa Shafer LDN [address] [place] [address] 02/05/2025 9:40 AM EDT Office Visit [facility] [address] [place] [address] Noemi Boyce MD [address] [place] [address] Health Maintenance Due Date Last Done Comments DEPRESSION SCREENING 1967 HEPATITIS C SCREENING 1973 COLOGUARD 2000 COLONOSCOPY [...] External 8.3 % Historical Provider LAB BLOOD ORDERABLES Donna l Result * Comprehensive metabolic panel (09/13/2023 7:55 AM EDT) Historical Provider LAB BLOOD ORDERABLES Donna l Result * Outside Potassium Level (08/09/2022) Potassium level - External 4.8 3.4 - 5.0 mmol/L Historical Provider LAB BLOOD ORDERABLES Donna l Result from Last 3 Months or Most Recently Relevant to Health Maintenance Insurance [facility] EXTENSION MEDICARE SUPPLEMENT MEDICARE PART A & B [facility] MEDICARE SUPPLEMENT MEDICARE PART A & B [facility] EXT[employer]ION MEDICARE SUPPLEMENT MEDICARE PART A & B [facility] EXT[facility]ION MEDICARE SUPPLEMENT MEDICARE PART A & B [facility] MEDICARE SUPPLEMENT MEDICARE PART A & B [employer] EXTENSION MEDICARE SUPPLEMENT MEDICARE PART A & B [employer] [facility] EXTENSION MEDICARE SUPPLEMENT MEDICARE PART A & B [facility] MEDICARE SUPPLEMENT MEDICARE PART A & B [facility] EXTENSION MEDICARE SUPPLEMENT MEDICARE PART A & B Care Teams Legal Document Assistant Relationship Specialty Start Date End Date Mulugeta Crowder MD [address] [place] [address] [place] [address] PCP - General Internal Medicine 09/20/19 Additional Source Comments The information contained in this document represents components of the legal health record. It is not the complete legal health record.[facility]
--- OUTSIDE RECORDS SUMMARY | 2024-10-14 08:26 | XMS_ITS | Encounter Summary ---
Author Organization [facility] Address [address] [facility] [address] [place] [address] Phone Care Team Providers Care Electronics Engineer Name Role Phone Mulugeta Crowder MD Primary Care Provider [phone] Encounter Details Date Type Department Care Team (Late st Contact Info) Description 10/09/2020 Telephone [facility] [address] [place] [address] Kasey Cobos LDN [email or web address] Social History Tobacco Use Types Packs/Day [...] Info) Description 10/24/2024 9:00 AM EDT Nutrition [facility] [address] [facility] [place] [address] Noemi Boyce MD 22 [facility], 1st [place] [address] Marisa Shafer LDN [address] [place] [address] 02/05/2025 9:40 AM EDT Office Visit [facility] [address] [place] [address] Noemi Boyce MD 22 [facility], 1st [place] [address] documented as of this encounter Visit Diagnoses Not on filedocumented in this encounter Care Teams Electronics Engineer Relationship Specialty Start Date End Date Mulugeta Crowder MD [address] [place] [address] PCP - General Internal Medicine 09/20/19 documented as of this encounter Additional Source Comments The information contained in this document represents components of the legal health record. It is not the complete legal health record.[facility]
--- NOTE | 2024-10-14 08:30 | MHC.OFFVIS ---
Intake Visit Reasons: 1y/PSA/PVR(set) Intake Note: Patient is present for 1y follow up/PSA/PVR Urology Medications: finasteride, tadalafil ALLERGIES:NONE Blood Thinner: Aspirin TODAY'S PVR;32ML'S [place] Worker Required: No Accompanied by: Self / Same As Patient Allergies No Known Allergies Allergy (Verified 10/14/24 10:14) Medication List - Last Reconciled 10/14/24 by BARRY Haque-ROMERO aspirin 81 mg PO DAILY blood sugar diagnostic 1 strip miscellaneous TID cholecalciferol (vitamin D3) 25 mcg PO DAILY dapagliflozin propanediol (Farxiga) 10 mg PO DAILY finasteride 5 mg PO DAILY 90 days fluoxetine 40 mg PO DAILY glipizide 5 mg PO DAILY glipizide ER 5 mg PO DAILY insulin glargine 30 units subcut DAILY lisinopril 40 mg PO DAILY 90 days metformin 1,000 mg PO BID multivitamin (Daily Multi-Vitamin tablet) 1 tab PO DAILY simvastatin 40 mg PO BEDTIME 90 days tadalafil (Cialis) 10 mg PO .PRN PRN 90 days tadalafil (Cialis) 10 mg PO DAILY 90 days tirzepatide (Mounjaro) 10 mg subcut QWEEK HPI Comments Details: Maximus Gonzales is a pleasant 69-year-old male patient of Dr. Crowder. He presents to the office today for follow-up. In discussion with the patient today reports to be doing and feeling well. He reports compliance with 5 mg of finasteride daily as well as 10 mg of Cialis daily. He does report noting improvement in episodes of nocturia with improvement in his diabetes. He reports recently having switched over to a Dexcom 3 and feels this has been helpful in better managing his diabetes. He does continue to report episodes of late night eating and knows he needs to improve. He otherwise denies any bothersome urinary issues. He denies urinary urgency, urinary frequency, incontinence, hematuria, dysuria, foul smelling urine, changes to urinary stream, flank pain, fever, and or chills. Recent PSA results reviewed with the patient today as noted and trended below. Previous workup has included a retroperitoneal ultrasound 09/25 noting bilateral renal cysts noted. Pre void bladder volume 200 mL. Postvoid bladder volume 10 mL. The bladder wall appears irregular. Prostate gland measures approximately 62 mL. PSA's are as follows: 0.9, 03/06 1.3, 08/09 1.5, 06/05 2.1, 09/25 2.9, 10/26 1.2, 10/27 1.6 When asked he continues to reports Cialis to be working well. He reports nocturia has decreased from 4-5 times per night to 1-2 times per night. He discusses noting correlation of elevated blood sugars and lower urinary tract symptoms. Discussed and stressed at length the importance of continuing to manage diabetes for improvement in lower urinary tract symptoms as well as overall health and well-being. In review of patient's chart it appears A1c from 08/25 10.2, 02/25 9.3, 06/28 9.0, 09/26 8.4, 02/26 8.1, 06/29 8.3, 09/27 7.8. In office urinalysis results reviewed with the patient today. He discusses upcoming appointment with his PCP today. He otherwise offers no other issues or concerns at this time. [facility] Medical History Epidermoid cyst of skin of back Epidermal inclusion cyst Abscess of back Restless leg syndrome Obesity (BMI 30-39.9) Depression Panic disorder [episodic paroxysmal anxiety] Anxiety Alcohol abuse, in remission Hypotestosteronism Obstructive sleep apnea Low TSH level Vitamin D deficiency Lumbar degenerative disc disease Benign essential hypertension Pure hypercholesterolemia Proteinuria, unspecified Type 2 diabetes mellitus with other diabetic kidney complication Surgical History History of excision of epidermal inclusion cyst (~06/12/24) Hx of colonoscopy History of removal of cyst Family History Father Medical history unknown Adopted Mother Medical history unknown Adopted Social History Household Members: Spouse Housing: House Alcohol intake: never Patient Tobacco Use Status: Never used Tobacco e-Cigarette/Vaping Use: Never Used Second Hand Smoke Exposure: Yes Substance Use Type: Marijuana service: No Current occupational status: retired Cognitive needs: No Hearing needs: No Vision needs: Yes Review of Systems Const Reports as per HPI Eyes Reports no additional complaints ENT Reports no additional complaints Card Reports no additional complaints Resp Reports no additional complaints GI Reports no additional complaints Reports as per HPI Musc Reports no additional complaints Neuro Reports no additional complaints Psych Reports no additional complaints Endo Reports as per HPI James/Lymph Reports no additional complaints Physical Exam Const General: cooperative, healthy appearing, comfortable, no acute distress, well developed, alert and awake Nutritional Appearance: overweight Orientation/consciousness: patient oriented x3 Limitations: no limitations HEENT Head: Yes normal to inspection, Yes normocephalic and Yes atraumatic Ears: hearing grossly normal bilaterally Eyes General: appearance normal, both eyes and all related structures Neck Neck: Yes normal visual inspection and Yes trachea midline Chest Chest palpation & inspection: normal inspection of the chest Resp Effort & Inspection: normal respiratory effort and able to speak in complete sentences Cardio Rate: regular rate GI Inspection: Yes normal to inspection General: Yes no CVA tenderness Back/Spine/Pelvis Back: no CVA tenderness Skin General skin exam: no rashes or lesions noted Neuro General: patient oriented x3 Extrem General: Yes normal to inspection Psych Appearance: grossly normal and well kempt Mental Status: mental status grossly normal Speech and movement: Normal speech and movement present and Clear speech present Affect: normal affect Attitude: cooperative Thought process: Normal thought process present Thought content: Normal thought content present Insight: Fair insight present (Psych) Judgement: Fair judgement present (Psych) Office Procedures Post Void Residual Post Residual Void Post Void Residual (PVR): 32 [id number] Void Residual by ultrasound Results AMB Urinalysis, Automated UA Leukoctes 0 Tip/uL Last Edit by ACACIA Mcnulty on 10/14/24 09:02 UA Nitrite Negative Last Edit by ACACIA Mcnulty on 10/14/24 09:02 UA Urobilinogen 0.2 mg/dL Last Edit by ACACIA Mcnulty on 10/14/24 09:02 UA Protein 0 mg/dL Last Edit by ACACIA Mcnulty on 10/14/24 09:02 UA pH 6.0 Last Edit by ACACIA Mcnulty on 10/14/24 09:02 UA Blood 0 Holden/uL Last Edit by ACACIA Mcnulty on 10/14/24 09:02 UA Specific [place] 1.020 Last Edit by ACACIA Mcnulty on 10/14/24 09:02 UA Ketone Negative Last Edit by ACACIA Mcnulty on 10/14/24 09:02 UA Bilirubin 0 mg/dL Last Edit by ACACIA Mcnulty on 10/14/24 09:02 UA Glucose 1000 mg/dL Last Edit by ACACIA Mcnulty on 10/14/24 09:02 Results Reviewed Results Reviewed: Laboratory Last Values Urine pH (Auto) 6.0 10/14/24 09:01 Specific [place] (Auto) 1.020 10/14/24 09:01 Urine Protein (Auto) 0 mg/dL 10/14/24 09:01 Glucose (UA)(Auto) 1000 mg/dL 10/14/24 09:01 Urine Ketones (Auto) Negative 10/14/24 09:01 Urine Blood (Auto) 0 Holden/uL 10/14/24 09:01 Urine Nitrite (Auto) Negative 10/14/24 09:01 Urine Bilirubin (Auto) 0 mg/dL 10/14/24 09:01 Urine Urobilinogen (Auto) 0.2 mg/dL 10/14/24 09:01 Leukocyte Esterase (Auto) 0 Tip/uL 10/14/24 09:01 Assessment & Plan Assessment & Plan (1) Bladder wall thickening: Code(s): N32.89 - Other specified disorders of bladder Category: Medical (2) Enlarged prostate: Code(s): N40.0 - Benign prostatic hyperplasia without lower urinary tract symptoms Category: Medical (3) Erectile dysfunction associated with type 2 diabetes mellitus: Code(s): E11.69 - Type 2 diabetes mellitus with other specified complication; N52.1 - Erectile dysfunction due to diseases classified elsewhere Category: Medical (4) BPH (benign prostatic hyperplasia): Code(s): N40.0 - Benign prostatic hyperplasia without lower urinary tract symptoms Category: Medical Qualifiers: Lower urinary tract symptom presence: symptoms present Lower urinary tract symptom detail: urinary frequency Qualified Code(s): N40.1 - Benign prostatic hyperplasia with lower urinary tract symptoms; R35.0 - Frequency of micturition (5) Urinary frequency: Code(s): R35.0 - Frequency of micturition Category: Medical (6) Nocturia: Code(s): R35.1 - Nocturia Category: Medical Plan In office urinalysis results reviewed with the patient today; as noted above. PVR 32 mL Recent PSA results reviewed with the patient today; as noted above. We discussed importance of management in diabetes for improvement in lower urinary tract symptoms, erectile dysfunction as well as overall health and well-being He does report episodes of nocturia however feels he is managing this well independently. Continue finasteride and Cialis as prescribed; refills provided. Prescription provided for p.r.n. dosing. He reports be happy with current voiding parameters. Follow-up in 1 year with PSA and PVR; or sooner with any issues, concerns, and or questions. Orders: Orders AMB Urinalysis Automated Today Z13.9 - Encounter for screening, unspecified Prostate Specific Antigen 1 Year N40.0 - Benign prostatic hyperplasia without lower urinary tract symptoms Medications: New tadalafil (Cialis) administer approximately 30min before sexual activity; do not use more than 1 dose per 24hrs [id number] [facility] [id number] Member [id number] 10 mg PO .PRN 90 days PRN 60 tabs 2RF sexual activity Refilled tadalafil (Cialis) daily medication for urination 10 mg PO DAILY 90 days 90 tabs 3RF sexual activity Patient Instructions: The patient had an opportunity to ask questions regarding the treatment plan. All questions were answered. Physical exam, labs, and imaging were discussed and reviewed in detail. As well as risks, benefits, and discussion of treatment choices. No major barriers to understanding were identified. The patient expressed understanding and agreement with the above treatment plan. The patient was made aware they should contact our office by phone for worsening of their current condition, the appearance of new symptoms, or with any questions or concerns. Compliance is encouraged with any medications and follow up testing that is ordered. It is a privilege to be allowed the opportunity to participate in? your urological care.? Again, if you have any questions or concerns If you have any questions or concerns please do not hesitate to contact me. The office is [phone]. This note is constructed using voice recognition software. While every effort has been made to ensure accuracy skein yarn drier errors may have been included. Yours sincerely, BECKIE Haque Coding Level of Care Code Est Pt Level 3 (36070) Complex EM visit Add On G2211 Diagnoses Bladder wall thickening N32.89 Enlarged prostate N40.0 Erectile dysfunction associated with type 2 diabetes mellitus E11.69; N52.1 Benign prostatic hyperplasia with urinary frequency N40.1; R35.0 Lower urinary tract symptom presence: symptoms present Lower urinary tract symptom detail: urinary frequency Urinary frequency R35.0 Nocturia R35.1 CPT Codes Post Residual Void - PVR CPT Code: 40340-Yhmb Void Residual by ultrasound ([id number])
== END 2024-10-14 09:08 | disposition home or self-care (01) ==
LOC: HO.HUSH 08:24
PROVIDERS: PCP Internal Medicine; Visit Provider Nurse Practitioner Family
DX: N32.89 Other specified disorders of bladder (principal); N40.0 Benign prostatic hyperplasia without lower urinary tract symptoms; E11.69 Type 2 diabetes mellitus with other specified complication; N52.1 Erectile dysfunction due to diseases classified elsewhere; N40.1 Benign prostatic hyperplasia with lower urinary tract symptoms; R35.0 Frequency of micturition; R35.1 Nocturia; Z13.9 Encounter for screening, unspecified
CPT/HCPCS: 99213; G2211

== ENCOUNTER → 2024-10-14 08:23 | Outpatient (BNVA) | payer MEDICARE, OTHER, SELFPAY | PROVIDERS: PCP Internal Medicine; Visit Provider Nurse Practitioner Family | DX: E11.29 Type 2 diabetes mellitus with other diabetic kidney complication (principal); R80.9 Proteinuria, unspecified; E78.00 Pure hypercholesterolemia, unspecified; I10 Essential (primary) hypertension; M51.360 Other intervertebral disc degeneration, lumbar region with discogenic back pain only; E55.9 Vitamin D deficiency, unspecified; R79.89 Other specified abnormal findings of blood chemistry; G47.33 Obstructive sleep apnea (adult) (pediatric); E34.9 Endocrine disorder, unspecified; E11.69 Type 2 diabetes mellitus with other specified complication; N52.1 Erectile dysfunction due to diseases classified elsewhere; N40.1 Benign prostatic hyperplasia with lower urinary tract symptoms; R35.0 Frequency of micturition; F10.11 Alcohol abuse, in remission; F41.9 Anxiety disorder, unspecified; F33.9 Major depressive disorder, recurrent, unspecified; E66.9 Obesity, unspecified; D64.9 Anemia, unspecified; E53.8 Deficiency of other specified B group vitamins; R30.0 Dysuria; N32.89 Other specified disorders of bladder; R35.1 Nocturia | CPT/HCPCS: 51798; 81003; 96127; 99212 ==

== ENCOUNTER 2024-10-14 09:10 | Outpatient (AMB) | payer MEDICARE, OTHER, SELFPAY ==
--- NOTE | 2024-10-14 09:14 | A.OFFPC_ITS ---
Vital Signs 10/14/24 09:15 Height 5 ft 10 in Weight 218 lb BMI 31.3 BP 132/76 Blood Pressure Location Lt brachial Position Sitting Pulse 70 Pulse Source Pulse Oximeter Pulse Oximetry (%) 98 Oxygen Delivery Method Room Air Intake Visit Reasons: dm/hld Loop Cutter Required: No Accompanied by: Self / Same As Patient Allergies No Known Allergies Allergy (Verified 10/14/24 09:27) Medication List - Last Reconciled 10/14/24 by Mulugeta Crowder MD aspirin 81 mg PO DAILY blood sugar diagnostic 1 strip miscellaneous TID cholecalciferol (vitamin D3) 25 mcg PO DAILY dapagliflozin propanediol (Farxiga) 10 mg PO DAILY finasteride 5 mg PO DAILY 90 days fluoxetine 40 mg PO DAILY glipizide 5 mg PO DAILY glipizide ER 5 mg PO DAILY insulin glargine 30 units subcut DAILY lisinopril 40 mg PO DAILY 90 days metformin 1,000 mg PO BID multivitamin (Daily Multi-Vitamin tablet) 1 tab PO DAILY simvastatin 40 mg PO BEDTIME 90 days tadalafil (Cialis) 10 mg PO .PRN PRN 90 days tadalafil (Cialis) 10 mg PO DAILY 90 days tirzepatide (Mounjaro) 10 mg subcut QWEEK Tobacco use date assessed: 10/14/24 Fall risk assessment: No Falls in past year Last assessed Fall Risk: 10/14/24 Dental Screening Dental Screen Date: 10/14/24 Did you have a dental visit in the last 12 months?: Yes Did you have a dental problem in the last 6 months where you did not have access to dental care?: No Was dental information given to patient?: Patient has dentist HPI dm/hld HPI Details Patient comes in today for his follow up visit States that he feels okay He denies any headaches or dizziness Denies any chest pains, no increased SOB States that he is still coughing up some thick whitish phlegm at times but admits that he smokes marijuana everyday - states that it helps him relax No nausea/vomiting, no abdominal pain No change in bowel habits noted He continues to follow up with Dr. Boyce at [facility] every 6 months for his diabetes management He had his follow up labs done a couple of weeks ago - to discuss his results [facility] Medical History Epidermoid cyst of skin of back Epidermal inclusion cyst Abscess of back Restless leg syndrome Obesity (BMI 30-39.9) Depression Panic disorder [episodic paroxysmal anxiety] Anxiety Alcohol abuse, in remission Hypotestosteronism Obstructive sleep apnea Low TSH level Vitamin D deficiency Lumbar degenerative disc disease Benign essential hypertension Pure hypercholesterolemia Proteinuria, unspecified Type 2 diabetes mellitus with other diabetic kidney complication Surgical History History of excision of epidermal inclusion cyst (~06/12/24) Hx of colonoscopy History of removal of cyst Family History Father Medical history unknown Adopted Mother Medical history unknown Adopted Social History Household Members: Spouse Housing: House Alcohol intake: never Patient Tobacco Use Status: Never used Tobacco e-Cigarette/Vaping Use: Never Used Second Hand Smoke Exposure: Yes Substance Use Type: Marijuana service: No Current occupational status: retired Cognitive needs: No Hearing needs: No Vision needs: Yes Questionnaire PHQ-9 Over the last 2 weeks, how often have you been bothered by any of the following problems? 1. Little interest or pleasure in doing things: not at all 2. Feeling down, depressed, or hopeless: several days 3. Trouble falling or staying asleep, or sleeping too much: not at all 4. Feeling tired or having little energy: not at all 5. Poor appetite or overeating: not at all 6. Feeling bad about yourself - or that you are a failure or have let yourself or your family down: not at all 7. Trouble concentrating on things, such as reading the newspaper or watching television: not at all 8. Moving or speaking so slowly that other people could have noticed. Or the opposite - being so fidgety or restless that you have been moving around a lot more than usual: not at all 9. Thoughts that you would be better off or of hurting yourself in some way: not at all Total score: 1 Depression Screening Interpretation: Negative (is on Rx) Depression Screening Done: Yes 79985 - PHQ-9 Billing: Yes Source: Developed by Drs. Moisés Kwon, Tianna Contreras, Nicola Junior and colleagues, with an educational fernando from [employer] Thrive Questionnaire Date Thrive assessed: 10/14/24 I am a: Patient What is your living situation today?: I have a steady place to live Within the past 12 months, did the food you bought not last and you didn't have the money to get more?: Never true Within the past 12 months, did you worry whether your food would run out before you got money to buy more?: Never true Do you have trouble paying for medicines?: No Do you have trouble getting transportation to medical appointments?: No Do you have trouble paying your heating and electricity bill?: No Do you have trouble taking care of your child, family member or friend?: No Do you have trouble with day-to-day activities such as bathing, preparing meals, shopping, managing finances, etc.?: No Are you currently unemployed and looking for a job?: No Are you interested in more education?: No Please select the resources that you would like help with: None Currently or been in a relationship where the following occur: No concerns reported THRIVE Score: 0 AUDIT C Alcohol Use Questionnaire (AUDIT-C) 1. How often do you have a drink containing alcohol?: Never 3. How often do you have six or more drinks on one occasion?: Never Total Score: 0 Score Reviewed/Action Taken: Yes LIU-7 AMB Questionnaire LIU-7 Date LIU - 7 assessed: 10/14/24 Feeling nervous, anxious, or on edge: 0 = Not at all Not being able to stop or control worryin = Not at all Worrying too much about different things: 0 = Not at all Trouble relaxin = Not at all Being so restless that it is hard to sit still: 0 = Not at all Becoming easily annoyed or irritable: 0 = Not at all Feeling afraid as if something awful might happen: 0 = Not at all Total LIU-7 score (0-4 normal; 5-9 mild; 10-14 moderate; 15-21 severe): 0 Source: Developed by Tianna Lozano Kurt Kroenke and colleagues, with an educational fernando from [employer] Review of Systems Const Denies chills, Denies fatigue, Denies fever(s) and Denies headache(s) ENT Denies dysphagia, Denies dizziness, Denies otalgia, Denies headache(s), Denies neck pain, Denies odynophagia and Denies sore throat Card Denies chest pain, Denies rapid heart rate, Denies palpitations and Denies dyspnea Resp Denies chest congestion, Reports cough (occasional - coughs up thick whitish phlegm at times), Denies dyspnea and Denies wheezing GI Denies abdominal pain, Denies constipation, Denies dysphagia, Denies heartburn, Denies diarrhea, Denies nausea, Denies odynophagia and Denies vomiting Denies difficulty urinating, Reports erectile dysfunction, Denies dysuria, Denies nocturia and Denies urinary frequency Musc Reports back pain (on and off, over the lower back) and Denies neck pain Skin/Breast Denies rash Neuro Denies dizziness and Denies headache(s) Psych Reports anxiety (better controlled on Rx) and Reports depression (better controlled on Rx) Endo Denies fatigue and Denies palpitations Aller/Immun Denies wheezing Physical exam (Primary Care) Vital Signs: Last Vital Signs Pulse 70 10/14/24 09:15 BP 132/76 10/14/24 09:15 Pulse Ox 98 10/14/24 09:15 Oxygen Delivery Method Room Air 10/14/24 09:15 BMI result Body Mass Index 31.3 Tobacco/Smoking Status: Tobacco use Status Tobacco use date assessed 10/14/24 10/14/24 09:19 Patient Tobacco Use Status Never used Tobacco 10/14/24 09:14 e-Cigarette/Vaping Use Never Used 10/14/24 09:14 PHQ-9: PHQ-9 Score PHQ-9: Total score 1 10/14/24 09:19 Depression Screening Interpretation: Negative (is on Rx) Thrive Assessment: Date of Thrive Assessment Date Thrive assessed 10/14/24 10/14/24 09:19 Currently or been in a relationship where the following occur: No concerns reported Const General: no acute distress and alert HENMT Ears: TM's normal bilaterally and EAC's normal Throat: Yes posterior oropharynx normal and Yes tonsils normal (no TP congestion noted) Neck Neck: Yes supple and No lymphadenopathy Thyroid: Thyroid normal Resp Auscultation: clear to auscultation bilaterally, no rales and no wheezes Cardio Rate: regular rate Rhythm: regular rhythm Heart sounds: no murmurs GI Palpation (GI): Soft to palpation and nontender Auscultation: normal bowel sounds General: Yes no CVA tenderness Back/Spine/Pelvis Back: no CVA tenderness Thoracic/Lumbar Spine: lumbar spinal tenderness (mild) Skin Rashes: no rashes Extrem General: Yes no clubbing, cyanosis or edema Results AMB Urinalysis, Automated UA Leukoctes 0 Tip/uL Last Edit by ACACIA Mcnulty on 10/14/24 09:02 UA Nitrite Negative Last Edit by ACACIA Mcnulty on 10/14/24 09:02 UA Urobilinogen 0.2 mg/dL Last Edit by ACACIA Mcnulty on 10/14/24 09:0 2 UA Protein 0 mg/dL Last Edit by Dusty Muse CCM on 10/14/24 09:02 UA pH 6.0 Last Edit by Dusty Muse CCM on 10/14/24 09:02 UA Blood 0 Holden/uL Last Edit by Dusty Muse CCM on 10/14/24 09:02 UA Specific [place] 1.020 Last Edit by ACACIA Mcnulty on 10/14/24 09: 02 UA Ketone Negative Last Edit by ACACIA Mcnulty on 10/14/24 09:02 UA Bilirubin 0 mg/dL Last Edit by Dusty Muse CCM on 10/14/24 09:02 UA Glucose 1000 mg/dL Last Edit by Dusty Muse CCM on 10/14/24 09:02 Results Reviewed Results Reviewed: Laboratory Tests 06/10/24 06/10/24 10/01/24 11:43 11:50 09:40 WBC 7.4 Hgb 14.6 Hct 46.4 Plt Count 213 Sodium 138 Potassium 4.6 Creatinine 0.70 Estimated GFR > 60 Fasting Glucose 150 H Estimat Average Glucose 177 Hemoglobin A1c % 7.8 H Calcium 9.6 AST 23 ALT 31 Triglycerides 82 Cholesterol 129 LDL Cholesterol, Calc 60 HDL Cholesterol 53 Prostate Specific Ag 1.59 25-OH Vitamin D Total 70.0 TSH 0.14 L Free T4 0.93 Thyroglobulin 10.8 Urine pH (Auto) Ur Specific [place] >= 1.030 H Specific [place] (Auto) Urine Protein Trace Urine Protein (Auto) Urine Glucose (UA) >=1000 H Glucose (UA)(Auto) Urine Blood Negative Urine Blood (Auto) Urine Nitrite Negative Urine Nitrite (Auto) Ur Leukocyte Esterase Negative Leukocyte Esterase (Auto) Urine Microalbumin 15.0 Microalb/Creat Ratio 23.0 10/14/24 09:01 WBC Hgb Hct Plt Count Sodium Potassium Creatinine Estimated GFR Fasting Glucose Estimat Average Glucose Hemoglobin A1c % Calcium AST ALT Triglycerides Cholesterol LDL Cholesterol, Calc HDL Cholesterol Prostate Specific Ag 25-OH Vitamin D Total TSH Free T4 Thyroglobulin Urine pH (Auto) 6.0 Ur Specific [place] Specific [place] (Auto) 1.020 Urine Protein Urine Protein (Auto) 0 Urine Glucose (UA) Glucose (UA)(Auto) 1000 Urine Blood Urine Blood (Auto) 0 Urine Nitrite Urine Nitrite (Auto) Negative Ur Leukocyte Esterase Leukocyte Esterase (Auto) 0 Urine Microalbumin Microalb/Creat Ratio Coding Level of Care Code Est Pt Level 4 (25820) Complex EM visit Add On G2211 Diagnoses Type 2 diabetes mellitus with other diabetic kidney complication E11.29 Proteinuria, unspecified type R80.9 Proteinuria type: unspecified Pure hypercholesterolemia E78.00 Benign essential hypertension I10 Degeneration of intervertebral disc of lumbar region with discogenic back pain M51.360 Disc-related pain type: discogenic back pain only Vitamin D deficiency E55.9 Low TSH level R79.89 Obstructive sleep apnea G47.33 Hypotestosteronism E34.9 Erectile dysfunction associated with type 2 diabetes mellitus E11.69; N52.1 Benign prostatic hyperplasia with urinary frequency N40.1; R35.0 Lower urinary tract symptom presence: symptoms present Lower urinary tract symptom detail: urinary frequency Alcohol abuse, in remission F10.11 Anxiety F41.9 Episode of recurrent major depressive disorder, unspecified depression episode severity F33.9 Depression Type: major depressive disorder Major depression recurrence: recurrent Active/Remission status: currently active Major depression episode severity: unspecified Obesity (BMI 30-39.9) E66.9 Additional Codes PHQ-9 - 66818 - PHQ-9 Billing: Yes ([id number]) Assessment & Plan Assessment & Plan (1) Type 2 diabetes mellitus with other diabetic kidney complication: Code(s): E11.29 - Type 2 diabetes mellitus with other diabetic kidney complication Category: Medical Plan: His HgbA1c was at 7.8% on his labs done a couple of weeks ago (HgbA1c was previously at 8.1% a few months ago) - goal is at least <7.0% Reinforced diabetic diet Continue Metformin 1000 mg BID, Farxiga 10 mg QD, Glipizide ER 5 mg QD, Basaglar 30 units Q PM and Mounjaro 10 mg SQ once a week Follow up with senior analyst programmer and with endocrinology (Dr. Boyce) at [facility] as scheduled (2) Proteinuria, unspecified: Code(s): R80.9 - Proteinuria, unspecified Category: Medical Qualifiers: Proteinuria type: unspecified Qualified Code(s): R80.9 - Proteinuria, unspecified Plan: Resolved/controlled (+) trace proteins in his urinalysis done a couple of weeks ago but (-) proteins on his urinalysis done at his urology visit earlier today Will continue to monitor his renal function closely (3) Pure hypercholesterolemia: Code(s): E78.00 - Pure hypercholesterolemia, unspecified Category: Medical Plan: Results of his labs done a couple of weeks ago reviewed and discussed with patient Reinforced low cholesterol diet Continue Simvastatin 40 mg QD Will recheck his labs and fasting lipids in 4 months for follow up (4) Benign essential hypertension: Code(s): I10 - Essential (primary) hypertension Category: Medical Plan: Reinforced low sodium diet - goal is systolic BP of 120 mm or less Continue Lisinopril 40 mg QD (5) Lumbar degenerative disc disease: Code(s): M51.36 - Other intervertebral disc degeneration, lumbar region Category: Medical Qualifiers: Disc-related pain type: discogenic back pain only Qualified Code(s): M51.360 - Other intervertebral disc degeneration, lumbar region with discogenic back pain only Plan: Reinforced activity and weight lifting restrictions Continue Ibuprofen 800 mg 3 times a day with food as needed for pain Follow up with [facility] as scheduled for continuing pain management (6) Vitamin D deficiency: Code(s): E55.9 - Vitamin D deficiency, unspecified Category: Medical Plan: Corrected Continue Vitamin D3 1000 units QD (7) Low TSH level: Code(s): R79.89 - Other specified abnormal findings of blood chemistry Category: Medical Plan: His serum TSH remains low/suppressed on his recent labs but his free T4 level is still normal His thyroglobulin level also came back normal on his recent labs Patient is also clinically euthyroid Will continue to monitor his TFTs regularly (8) Obstructive sleep apnea: Comment: LONGSTANDING HISTORY OF OBSTRUCTIVE SLEEP APNEA. CURRENT NEW CPAP DEVICE IS WORKING VERY WELL AND HE IS HAPPY WITH ITS USE. ( FF MASK AND PRESSURE =13 CMs ) Code(s): G47.33 - Obstructive sleep apnea (adult) (pediatric) Category: Medical Plan: Continue using his CPAP device daily when sleeping at night although he is still struggling with dry mouth and other issues associated with his CPAP device use Repeat sleep study done in December 2022 revealed (+) severe sleep apnea, mostly obstructive, with increased severity in REM sleep He was started on Ropinirole by Dr. Mcallister previously for his leg movements but oatient felt that the Rx did not really help much and he self-discontinued this sometime last year Follow up with Sleep Medicine as scheduled (9) Hypotestosteronism: Code(s): E34.9 - Endocrine disorder, unspecified Category: Medical Plan: Improved - serum testosterone level was normal when checked a couple of years ago; will continue to monitor regularly (10) Erectile dysfunction associated with type 2 diabetes mellitus: Code(s): E11.69 - Type 2 diabetes mellitus with other specified complication; N52.1 - Erectile dysfunction due to diseases classified elsewhere Category: Medical Plan: Continue Tadalafil 10 mg QD (11) BPH (benign prostatic hyperplasia): Code(s): N40.0 - Benign prostatic hyperplasia without lower urinary tract symptoms Category: Medical Qualifiers: Lower urinary tract symptom presence: symptoms present Lower urinary tract symptom detail: urinary frequency Qualified Code(s): N40.1 - Benign pro static hyperplasia with lower urinary tract symptoms; R35.0 - Frequency of micturition Plan: Continue Finasteride 5 mg QD and Tadalafil 10 mg QD Follow up with urology as scheduled (12) Alcohol abuse, in remission: Code(s): F10.11 - Alcohol abuse, in remission Category: Medical Plan: States that he has been completely sober for over 2 to 3 years now He is again encouraged to continue maintaining his sobriety Follow up with AA as scheduled (13) Anxiety: Code(s): F41.9 - Anxiety disorder, unspecified Category: Medical Plan: Patient states that Fluoxetine has been helping with his anxiety symptoms (14) Depression: Code(s): F32.9 - Major depressive disorder, single episode, unspecified Category: Medical Qualifiers: Depression Type: major depressive disorder Major depression recurrence: recurrent Active/Remission status: currently active Major depression episode severity: unspecified Qualified Code(s): F33.9 - Major depressive disorder, recurrent, unspecified Plan: Continue Fluoxetine 40 mg QD Follow up with psychiatry as scheduled (15) Obesity (BMI 30-39.9): Comment: PATIENT IS MODERATELY OBESE, HE IS AWARE OF THIS ISSUE. HAS NOT BEEN ABLE TO LOSE MUCH WEIGHT. HE IS INSTRUCTED ABOUT. DIET AND IMPORTANCE OF EXERCISE Code(s): E66.9 - Obesity, unspecified Category: Medical Plan: Reinforced diet/exercise as tolerated/lose weight Plan Follow up in 4 months Orders: Orders Complete Blood Count Auto Diff 4 Months D64.9 - Anemia, unspecified Lipid Panel 4 Months E78.00 - Pure hypercholesterolemia, unspecified Microalbumin, Random (w Creat) 4 Months E11.9 - Type 2 diabetes mellitus without complications Vitamin B12 and Folate 4 Months E53.8 - Deficiency of other specified B group vitamins Comprehensive [place]. Panel Fast 4 Months E78.00 - Pure hypercholesterolemia, unspecified Hemoglobin A1c 4 Months E11.9 - Type 2 diabetes mellitus without complications TSH reflex Free T4 4 Months E78.00 - Pure hypercholesterolemia, unspecified UA CC w/rflx Micro + Cult 4 Months R30.0 - Dysuria Vitamin D 25-OH Total 4 Months E55.9 - Vitamin D deficiency, unspecified
[2024-10-14 09:15] VITALS: BP 132/76; PULSE 70; O2SAT 98; BMI 31.3
== END 2024-10-14 09:34 | disposition home or self-care (01) ==
LOC: HO.HMCH 09:10
PROVIDERS: PCP Internal Medicine; Visit Provider Internal Medicine
DX: E11.29 Type 2 diabetes mellitus with other diabetic kidney complication (principal); E11.69 Type 2 diabetes mellitus with other specified complication; R80.9 Proteinuria, unspecified; E78.00 Pure hypercholesterolemia, unspecified; I10 Essential (primary) hypertension; M51.360 Other intervertebral disc degeneration, lumbar region with discogenic back pain only; E55.9 Vitamin D deficiency, unspecified; R79.89 Other specified abnormal findings of blood chemistry; G47.33 Obstructive sleep apnea (adult) (pediatric); E34.9 Endocrine disorder, unspecified; N52.1 Erectile dysfunction due to diseases classified elsewhere; N40.1 Benign prostatic hyperplasia with lower urinary tract symptoms

== ENCOUNTER 2025-01-31 09:31 | Outpatient (REF) | payer MEDICARE, OTHER, SELFPAY ==
--- OUTSIDE RECORDS SUMMARY | 2025-01-31 10:17 | XMS_ITS | Encounter Summary ---
Author Organization [facility] Address [address] [address] Phone Care Team Providers Care Fourdrinier Operator Name Role Phone Mulugeta Crowder MD Primary Care Provider [phone] Reason for Visit * Reason Onset Date Comments Appointment 01/27/2025 Encounter Details Date Type Department Care Team (Late st Contact Info) Description 01/27/2025 Telephone [facility] [address] [place] [address] Krystle Alonzo, ADAN [address] [place] [address] [email or web address] Appointment Social History Tobacco Use Types Packs/Day Years Used Date Smoking Tobacco: Never Passive Smoke Exposure: Never Smokeless Tobacco: Never Alcohol Use Standard Drinks/Week Comments Not Currently [...] PM EDT documented as of this encounter Progress Notes * Krystle Alonzo RN - 01/27/2025 3:42 PM EDT Pt states that has upcoming appt with Dr. Boyce on 02/05, and is also seeing PCP 3 weeks from that date. He says he normally gets A1c in the office, but he has a call out to his pcp office, to see if its fine for him to get his A1c done now at the lab, or should he wait a couple more weeks till he sees pcp. Uses [facility]. I explained to him, at this time there is NO A1c order in from us to get done at lab. I told him Dr. Boyce away on vacation, but I can ask covering provider to put order in. He wishes to hold off fornow. He says he will call me back if needed. I told him his last A1c was 10/01 of this year, so he was definitely due as of 12/31. Pt verbalizes understanding and will call me back once he talks to pcp. He asks me not to do anything at this point yet. documented in this encounter Plan of Treatment Upcoming Encounters Date Type Department Care Team (Late st Contact Info) Description 02/05/2025 9:40 AM EDT Office Visit [facility] [address] [place] [address] [place] [address] Noemi Boyce MD [address] [facility], [address] [place] [address] 05/08/2025 9:00 AM EST Nutrition [facility] [address] [facility] [place] [address] Marisa Shafer LDN 22 [facility], [address] [place] [address] [email or web address] documented as of this encounter Visit Diagnoses Not on filedocumented in this encounter Care Teams Fourdrinier Operator Relationship Specialty Start Date End Date Mulugeta Crowder MD [address] [place] [address] [place] [address] PCP - General Internal Medicine 09/20/19 documented as of this encounter Additional Source Comments The information contained in this document represents components of the legal health record. It is not the complete legal health record.[facility]
--- OUTSIDE RECORDS SUMMARY | 2025-01-31 10:17 | XMS_ITS | Encounter Summary ---
Author Organization [facility] Address [address] [facility] [address] [place] [address] Phone Care Team Providers Care Hr Analyst Name Role Phone Mulugeta Crowder MD Primary Care Provider [phone] Encounter Details Date Type Department Care Team (Late st Contact Info) Description 10/09/2020 Telephone [facility] [address] [place] [address] Kasey Cobos LDN [email or web address] Social History Tobacco Use Types Packs/Day Years [...] Description 02/05/2025 9:40 AM EDT Office Visit [facility] [place] [address] [place] [address] Noemi Boyce MD 22 [facility], [address] [place] [address] 05/08/2025 9:00 AM EST Nutrition [facility] [address] [place] [address] Marisa Shafer LDN [address] [facility], [address] [place] [address] [email or web address] documented as of this encounter Visit Diagnoses Not on filedocumented in this encounter Care Teams Hr Analyst Relationship Specialty Start Date End Date Mulugeta Crowder MD [address] [place] [address] [place] [address] PCP - General Internal Medicine 09/20/19 documented as of this encounter Additional Source Comments The information contained in this document represents components of the legal health record. It is not the complete legal health record.[facility]
--- OUTSIDE RECORDS SUMMARY | 2025-01-31 10:17 | XMS_ITS | Clinical Summary ---
Author Organization [facility] Address [address] [facility] [address] [address] Phone Care Team Providers Care Quality Assurance Test Program Manager Name Role Phone Mulugeta Crowder MD Primary Care Provider [phone] Allergies No known active allergies Medications FARXIGA [...] CPAP consistently Working with sleep medicine at [facility] Type 2 diabetes mellitus wit [...] his glucose levels. Up to date with [facility] Assessment & Plan (07/10/2023 9:52 [...] health provider or using an serge like [place], Christian eats a healthy diet otherwise so [...] no redness, no bleeding. Plan: Procedure Codes: 76023 Glucose monitoring, cont Encounters Date Type Department Care Team Description 01/27/2025 Telephone [facility] [address] [place] [address] Krystle Alonzo, RN Appointment from Last 3 Months Immunizations Immunization Administration [...] 81 07/26/2024 8:59 AM EST Temperature 36.2 C (97.1 F) 01/12/2024 8:57 AM EDT Respiratory Rate - - Oxygen Saturation 97% 01/12/2024 8:57 AM EDT Inhaled Oxygen Concentration - - Weight 99.3 kg (219 lb) 10/24/2024 9:09 AM EDT Height 182.9 cm (6' 0.01 ) 10/24/2024 9:09 AM ED T Body Mass Index 29.7 10/24/2024 9:09 AM EDT Plan of Treatment Upcoming Encounters Date Type Department Care Team (Late st Contact Info) Description 02/05/2025 9:40 AM EDT Office Visit [facility] [address] [place] [address] Noemi Boyce MD [facility], [address] [place] [phone] 05/08/2025 9:00 AM EST Nutrition [facility] [address] [place] [address] Marisa Shafer LDN [address] [place] [id number] Health Maintenance Due Date Last Done Comments [...] 09/12/2024 09/13/2023, , 11/02/2021, Additional history exists COVID-19 VACCINE ( season) 2024 03/26/2024, 03/27/2023, 04/04/2022, Additional history exists INFLUENZA VACCINE (#1) 2025 , 03/27/2023, 04/04/2022, Additional history exists BLOOD PRESSURE 01/23/2025 07/26/2024 Adult Td,Tdap Booster 05/18/2030 05/18/2020, 010 RSV VACCINE Completed 03/27/2023 SMOKING STATUS SCREENING (Once After 26 Yrs) Completed 01/12/2024 HEPATITIS A VACCINES Aged Out No long er eligible based on patient's age to complete this topic HIB VACCINES Aged Out No longer eligi ble based on patient's age to complete this topic MENINGOCOCCAL VACCINES (ACWY) Aged Out No longer eligible based on patient's age to complete this topic MENINGOCOCCAL VACCINES (B) Aged Out N o longer eligible based on patient's age to complete this topic Medical Devices Not on file Procedures Procedure Name Priority Date/Time Associated Diagnosis Comments OUTSIDE HEMOGLOBIN A1C Routine 06/10/2024 COMPREHENSIVE METABOLIC PANEL Routine 09/13/2023 7:55 AM EDT OUTSIDE POTASSIUM LEVEL Routine 08/09/2022 from Last 3 Months or Most Recently Relevant to Health Maintenance Results * Outside HbA1c (06/10/2024) Hemoglobin A1c - External 8.3 % [facility] Provider MD LAB BLOOD ORDERABLES Donna l Result * Comprehensive metabolic panel (09/13/2023 7:55 AM EDT) Historical Provider MD LAB BLOOD ORDERABLES Donna l Result * Outside Potassium Level (08/09/2022) Potassium level - External 4.8 3.4 - 5.0 mmol/L [facility] Provider MD LAB BLOOD ORDERABLES Donna l Result from Last 3 Months or Most Recently Relevant to Health Maintenance Insurance [facility] EXTENSION MEDICARE SUPPLEMENT MEDICARE PART A & B [facility] MEDICARE PART A & B [email or web address] EXTENSION MEDICARE SUPPLEMENT MEDICARE PART A & B [employer] [facility] EXTENSION MEDICARE SUPPLEMENT MEDICARE PART A & [facility] MEDICARE PART A & [facility] SUPPLE[facility] MEDICARE PART A & B [facility] EXTENSION MEDICARE SUPPLEMENT MEDICARE PART A & B [facility] EXTENSION MEDICARE SUPPLEMENT MEDICARE PART A & B [facility] EXTENSION MEDICARE SUPPLEMENT MEDICARE PART A & B Care Teams Quality Assurance Test Program Manager Relationship Specialty Start Date End Date Mulugeta Crowder MD [address] [place] [address] [place] [address] PCP - General Internal Medicine 09/20/19 Additional Source Comments The information contained in this document represents components of the legal health record. It is not the complete legal health record.[facility]
[2025-01-31 13:34] LABS: MANUAL DIFF FLAG NO
[2025-01-31 13:38] LABS: Hematocrit 45.6 % (42.0-52.0); Hemoglobin 14.8 g/dl (14.0-18.0); Imm Gran Abs Auto 0.02 X10*3/uL (0.00-0.03); Imm Gran Pct Auto 0.3 % (0.0-0.4); Lymphocytes Absolute Auto 1.4 X10*3/uL (1.2-4.9); Mean Corpuscular HGB Conc 32.5 g/dl (31.0-36.0); Mean Corpuscular Hemoglobin 27.9 pg (27.0-33.0); Mean Corpuscular Volume 86.0 fL (80.0-98.0); NRBC Abs Auto 0.000 X10*3/uL (0.0-0.012); NRBC Pct Auto 0.0 /100WBC (0.0-0.2); Platelet Count 195 X10*3/uL (160-400); Red Blood Count 5.30 X10*6/uL (4.60-5.80); White Blood Count 6.5 X10*3/uL (4.8-10.8)
[2025-01-31 13:53] LABS: Appearance Urine Clear; Glucose Urine UA >=1000 mg/dL (Negative); PH 5.5 (5.0-9.0); Specific Gravity - Urine >= 1.030 (1.005-1.025); UMIC TRIGGER UACC YES
[2025-01-31 13:57] LABS: Hemoglobin A1C 252.7583 umol/L; Total Hemoglobin (HGBA1C) 3881.5467 umol/L
[2025-01-31 14:01] LABS: Alanine Aminotransferase 20 U/L (0-40); Albumin Level 4.6 g/dL (3.5-5.0); Alkaline Phosphatase 66 U/L (39-117); Anion Gap 12 (12-20); Aspartate Amino Transferase 23 U/L (5-37); Blood Urea Nitrogen 27 mg/dL (9-16); Calcium 9.6 mg/dL (8.4-10.2); Carbon Dioxide 30 mmol/L (22-29); Chloride 105 mmol/L (96-108); Cholesterol 125 mg/dL (<200); Estimated Glomerular Filt Rate > 60; HDL Cholesterol 48 mg/dL (>40); Potassium 5.5 mmol/L (3.3-5.1); Sodium 141 mmol/L (135-145); Total Protein 7.2 g/dL (6.5-8.0); Triglycerides 56 mg/dL (<150)
[2025-01-31 14:14] LABS: Microalbum/Creatinine Ratio Ur 18.5 ug/mg cr (<30)
[2025-01-31 14:24] LABS: Folate 12.7 ng/mL (> or = 4.0); Vitamin B12 508 pg/mL (200-900)
[2025-01-31 14:58] LABS: Free T4 (Free Thyroxine) 1.03 ng/dL (0.71-1.85)
== END 2025-01-31 09:32 | disposition home or self-care (01) ==
LOC: HO.HMGCLDS 09:31
PROVIDERS: PCP Internal Medicine; Visit Provider Internal Medicine
DX: E11.9 Type 2 diabetes mellitus without complications (principal); E53.8 Deficiency of other specified B group vitamins; D64.9 Anemia, unspecified; E55.9 Vitamin D deficiency, unspecified; E78.00 Pure hypercholesterolemia, unspecified
CPT/HCPCS: 36415; 80053; 80061; 81001; 82043; 82306; 82570; 82607; 82746; 83036; 84439; 84443; 85025

== ENCOUNTER 2025-02-24 09:02 | Outpatient (AMB) | payer MEDICARE, OTHER, SELFPAY ==
--- NOTE | 2025-02-24 09:03 | MHC.PC.OV ---
Vital Signs 02/24/25 09:05 Height 5 ft 10 in Weight 220 lb BMI 31.6 BP 152/62 H Blood Pressure Location Lt brachial Position Sitting Pulse 72 Pulse Source Pulse Oximeter Intake Visit Reasons: DM, HTN, hyperlipidemia, anxiety Broadcast Operations Director Required: No Program Support Assistant: Not Required per policy Accompanied by: Self / Same As Patient Allergies No Known Allergies Allergy (Verified 02/24/25 09:17) Medication List - Last Reconciled 02/24/25 by Mulugeta Crowder MD aspirin 81 mg PO DAILY blood sugar diagnostic 1 strip miscellaneous TID dapagliflozin propanediol (Farxiga) 10 mg PO DAILY finasteride 5 mg PO DAILY 90 days fluoxetine 40 mg PO DAILY glipizide 5 mg PO DAILY glipizide ER 5 mg PO DAILY insulin glargine 30 units subcut DAILY lisinopril 40 mg PO DAILY 90 days metformin 1,000 mg PO BID multivitamin (Daily Multi-Vitamin tablet) 1 tab PO DAILY simvastatin 40 mg PO BEDTIME 90 days tadalafil (Cialis) 10 mg PO .PRN PRN 90 days tadalafil (Cialis) 10 mg PO DAILY 90 days tirzepatide (Mounjaro) 10 mg subcut QWEEK Tobacco use date assessed: 10/14/24 Fall risk assessment: No Falls in past year Last assessed Fall Risk: 02/24/25 Dental Screening Dental Screen Date: 10/14/24 HPI DM, HTN, hyperlipidemia, anxiety HPI Details Patient's follow up visit / consultation today is done over video conference ([email or web address] Attached Parents) - this is a TELEHEALTH visit Patient's current medications have been reviewed and verified with patient and/or caregiver/proxy and have been updated accordingly in the medication list Patient states that he feels okay He is currently still up in [place] on vacation with his family States that he tried to reschedule his appointment today but was advised that the next earliest appointment available is about 3 to 4 months out so he decided to keep this appointment and schedule it as a telehealth visit instead He denies any headaches or dizziness Denies any chest pains, no SOB No nausea/vomiting, no abdominal pain No change in bowel habits noted He had his follow up labs done a few weeks ago - to discuss his results [facility] Medical History Epidermoid cyst of skin of back Epidermal inclusion cyst Abscess of back Restless leg syndrome Obesity (BMI 30-39.9) Depression Panic disorder [episodic paroxysmal anxiety] Anxiety Alcohol abuse, in remission Hypotestosteronism Obstructive sleep apnea Low TSH level Vitamin D deficiency Lumbar degenerative disc disease Benign essential hypertension Pure hypercholesterolemia Proteinuria, unspecified Type 2 diabetes mellitus with other diabetic kidney complication Surgical History History of excision of epidermal inclusion cyst (~06/12/24) Hx of colonoscopy History of removal of cyst Family History Father Medical history unknown Adopted Mother Medical history unknown Adopted Social History Household Members: Spouse Housing: House Alcohol intake: never Patient Tobacco Use Status: Never used Tobacco e-Cigarette/Vaping Use: Never Used Second Hand Smoke Exposure: Yes Substance Use Type: Marijuana service: No Current occupational status: retired Cognitive needs: No Hearing needs: No Vision needs: Yes Questionnaire PHQ-9 Over the last 2 weeks, how often have you been bothered by any of the following problems? 1. Little interest or pleasure in doing things: not at all 2. Feeling down, depressed, or hopeless: several days 3. Trouble falling or staying asleep, or sleeping too much: not at all 4. Feeling tired or having little energy: not at all 5. Poor appetite or overeating: not at all 6. Feeling bad about yourself - or that you are a failure or have let yourself or your family down: not at all 7. Trouble concentrating on things, such as reading the newspaper or watching television: not at all 8. Moving or speaking so slowly that other people could have noticed. Or the opposite - being so fidgety or restless that you have been moving around a lot more than usual: not at all 9. Thoughts that you would be better off or of hurting yourself in some way: not at all Total score: 1 Depression Screening Interpretation: Negative (is on Rx) Depression Screening Done: Yes 10390 - PHQ-9 Billing: Yes Source: Developed by Drs. Moisés Kwon, Tianna Contreras, Nicola Junior and colleagues, with an educational fernando from [employer]. Thrive Questionnaire Date Thrive assessed: 10/14/24 LIU-7 AMB Questionnaire LIU-7 Date LIU - 7 assessed: 10/14/24 Source: Developed by Drs. Moisés Kwon, Tianna Contreras, Nicola Junior and colleagues, with an educational fernando from [employer]. Review of Systems Const Denies chills, Denies fatigue, Denies fever(s) and Denies headache(s) ENT Denies dysphagia, Denies dizziness, Denies otalgia, Denies headache(s), Denies neck pain, Denies odynophagia and Denies sore throat Card Denies chest pain, Denies rapid heart rate, Denies palpitations and Denies dyspnea Resp Denies chest congestion, Denies cough and Denies dyspnea GI Denies abdominal pain, Denies constipation, Denies dysphagia, Denies heartburn, Denies diarrhea, Denies nausea, Denies odynophagia and Denies vomiting Denies difficulty urinating, Reports erectile dysfunction, Denies dysuria, Denies nocturia and Denies urinary frequency Musc Reports back pain (on and off, over the lower back) and Denies neck pain Skin/Breast Denies rash Neuro Denies dizziness and Denies headache(s) Psych Reports anxiety (better controlled on Rx) and Reports depression (better controlled on Rx) Endo Denies fatigue and Denies palpitations Physical exam (Primary Care) Vital Signs: Last Vital Signs Pulse 72 02/24/25 09:05 BP 152/62 H 02/24/25 09:05 Physical examination is not performed as visit / consultation today is done over videoconference - Telehealth visit All physical findings indicated here, if present, are as per patient's and / or caregivers / proxy's report and visual inspection over videoconference, if appropriate or applicable BMI result Body Mass Index 31.6 Tobacco/Smoking Status: Tobacco use Status Tobacco use date assessed 10/14/24 02/24/25 09:07 Patient Tobacco Use Status Never used Tobacco 02/24/25 09:07 e-Cigarette/Vaping Use Never Used 02/24/25 09:07 Depression Screening Interpretation: Negative (is on Rx) Thrive Assessment: Date of Thrive Assessment Date Thrive assessed 10/14/24 02/24/25 09:07 Telehealth Telehealth Telehealth Platform: [employer] Location of provider rendering services: practice address Location of patient: address on file Patient Identification confirmed using: Name, : Yes Telehealth method: video (Facetime) Patient verbally consented to treatment: Yes Patient verbally consented to billing insurance company: Yes Patient informed of any privacy concerns related to visit: Yes Minutes spent on Phone/Video with Pt.: 25 Results Reviewed Results Reviewed: Laboratory Tests 01/31/25 01/31/25 09:47 09:55 WBC 6.5 Hgb 14.8 Hct 45.6 Plt Count 195 Sodium 141 Potassium 5.5 H Creatinine 0.85 Estimated GFR > 60 Fasting Glucose 157 H Hemoglobin A1c % 8.1 H Calcium 9.6 AST 23 ALT 20 Triglycerides 56 Cholesterol 125 LDL Cholesterol, Calc 66 HDL Cholesterol 48 Vitamin B12 508 25-OH Vitamin D Total 74.6 TSH 0.14 L Free T4 1.03 Ur Specific [place] >= 1.030 H Urine Protein Negative Urine Glucose (UA) >=1000 H Urine Blood Negative Urine Nitrite Negative Ur Leukocyte Esterase Negative Microalb/Creat Ratio 18.5 Coding Level of Care Code Tele Est Pt Level 4 (11104) Diagnoses Type 2 diabetes mellitus with other diabetic kidney complication E11.29 Proteinuria, unspecified type R80.9 Proteinuria type: unspecified Pure hypercholesterolemia E78.00 Benign essential hypertension I10 Degeneration of intervertebral disc of lumbar region with discogenic back pain M51.360 Disc-related pain type: discogenic back pain only Vitamin D deficiency E55.9 Low TSH level R79.89 Obstructive sleep apnea G47.33 Hypotestosteronism E34.9 Erectile dysfunction associated with type 2 diabetes mellitus E11.69; N52.1 Benign prostatic hyperplasia with urinary frequency N40.1; R35.0 Lower urinary tract symptom presence: symptoms present Lower urinary tract symptom detail: urinary frequency Alcohol abuse, in remission F10.11 Anxiety F41.9 Episode of recurrent major depressive disorder, unspecified depression episode severity F33.9 Depression Type: major depressive disorder Major depression recurrence: recurrent Active/Remission status: currently active Major depression episode severity: unspecified Obesity (BMI 30-39.9) E66.9 Additional Codes PHQ-9 - 48760 - PHQ-9 Billing: Yes ([id number]) Assessment & Plan Assessment & Plan (1) Type 2 diabetes mellitus with other diabetic kidney complication: Code(s): E11.29 - Type 2 diabetes mellitus with other diabetic kidney complication Category: Medical Plan: His HgbA1c was at 8.1% on his labs done a few weeks ago (HgbA1c was previously at 7.8% a few months ago) - goal is at least <7.0% Reinforced diabetic diet Continue Metformin 1000 mg BID, Farxiga 10 mg QD, Glipizide ER 5 mg QD, Basaglar 30 units Q PM and Mounjaro 10 mg SQ once a week Follow up with specialties operator and with endocrinology (Dr. Boyce) at [facility] as scheduled (2) Proteinuria, unspecified: Code(s): R80.9 - Proteinuria, unspecified Category: Medical Qualifiers: Proteinuria type: unspecified Qualified Code(s): R80.9 - Proteinuria, unspecified Plan: Resolved/controlled (+) trace proteins in his urinalysis done earlier this year but (-) proteins on his urinalysis done a few weeks ago Will continue to monitor his renal function closely (3) Pure hypercholesterolemia: Code(s): E78.00 - Pure hypercholesterolemia, unspecified Category: Medical Plan: Results of his labs done a few weeks ago reviewed and discussed with patient Reinforced low cholesterol diet Continue Simvastatin 40 mg QD Will recheck his labs and fasting lipids in 4 months for follow up (4) Benign essential hypertension: Code(s): I10 - Essential (primary) hypertension Category: Medical Plan: Reinforced low sodium diet - goal is systolic BP of 120 mm or less His blood pressure appears higher than usual this morning but this may be due to anxiety / anticipation over today's visit Continue Lisinopril 40 mg QD Have instructed patient to recheck his blood pressure sometime later today and to continue monitoring his blood pressure regularly (5) Lumbar degenerative disc disease: Code(s): M51.36 - Other intervertebral disc degeneration, lumbar region Category: Medical Qualifiers: Disc-related pain type: discogenic back pain only Qualified Code(s): M51.360 - Other intervertebral disc degeneration, lumbar region with discogenic back pain only Plan: Reinforced activity and weight lifting restrictions Continue Ibuprofen 800 mg 3 times a day with food as needed for pain Follow up with [facility] as scheduled for continuing pain management (6) Vitamin D deficiency: Code(s): E55.9 - Vitamin D deficiency, unspecified Category: Medical Plan: Continue Vitamin D3 1000 units QD (7) Low TSH level: Code(s): R79.89 - Other specified abnormal findings of blood chemistry Category: Medical Plan: His serum TSH remains low/suppressed on his recent labs but his free T4 level is still normal His thyroglobulin level also came back normal on his recent labs Patient is also clinically euthyroid Will continue to monitor his TFTs regularly Will also consider getting a thyroid US or referring him to Dr. Boyce for his low TSH level as well if his low TSH level persists (8) Obstructive sleep apnea: Comment: LONGSTANDING HISTORY OF OBSTRUCTIVE SLEEP APNEA. CURRENT NEW CPAP DEVICE IS WORKING VERY WELL AND HE IS HAPPY WITH ITS USE. ( FF MASK AND PRESSURE =13 CMs ) Code(s): G47.33 - Obstructive sleep apnea (adult) (pediatric) Category: Medical Plan: Continue using his CPAP device daily when sleeping at night although he is still struggling with dry mouth and other issues associated with his CPAP device use Repeat sleep study done in December 2022 revealed (+) severe sleep apnea, mostly obstructive, with increased severity in REM sleep He was started on Ropinirole by Dr. Mcallister previously for his leg movements but oatient felt that the Rx did not really help much and he self-discontinued this sometime last year Follow up with Sleep Medicine as scheduled (9) Hypotestosteronism: Code(s): E34.9 - Endocrine disorder, unspecified Category: Medical Plan: Improved - serum testosterone level was normal when checked a couple of years ago; will continue to monitor regularly (10) Erectile dysfunction associated with type 2 diabetes mellitus: Code(s): E11.69 - Type 2 diabetes mellitus with other specified complication; N52.1 - Erectile dysfunction due to diseases classified elsewhere Category: Medical Plan: Continue Tadalafil 10 mg QD (11) BPH (benign prostatic hyperplasia): Code(s): N40.0 - Benign prostatic hyperplasia without lower urinary tract symptoms Category: Medical Qualifiers: Lower urinary tract symptom presence: symptoms present Lower urinary tract symptom detail: urinary frequency Qualified Code(s): N40.1 - Benign prostatic hyperplasia with lower urinary tract symptoms; R35.0 - Frequency of micturition Plan: Continue Finasteride 5 mg QD and Tadalafil 10 mg QD Follow up with urology as scheduled (12) Alcohol abuse, in remission: Code(s): F10.11 - Alcohol abuse, in remission Category: Medical Plan: States that he has been completely sober for over 3 years now He is again encouraged to continue maintaining his sobriety Follow up with AA as scheduled (13) Anxiety: Code(s): F41.9 - Anxiety disorder, unspecified Category: Medical Plan: Patient states that Fluoxetine has been helping with his anxiety symptoms (14) Depression: Code(s): F32.9 - Major depressive disorder, single episode, unspecified Category: Medical Qualifiers: Depression Type: major depressive disorder Major depression recurrence: recurrent Active/Remission status: currently active Major depression episode severity: unspecified Qualified Code(s): F33.9 - Major depressive disorder, recurrent, unspecified Plan: Continue Fluoxetine 40 mg QD Follow up with psychiatry as scheduled (15) Obesity (BMI 30-39.9): Comment: PATIENT IS MODERATELY OBESE, HE IS AWARE OF THIS ISSUE. HAS NOT BEEN ABLE TO LOSE MUCH WEIGHT. HE IS INSTRUCTED ABOUT. DIET AND IMPORTANCE OF EXERCISE Code(s): E66.9 - Obesity, unspecified Category: Medical Plan: Reinforced diet/exercise as tolerated/lose weight Plan Follow up in 4 months Orders: Orders Complete Blood Count Auto Diff 4 Months D64.9 - Anemia, unspecified Comprehensive [place]. Panel Fast 4 Months E78.00 - Pure hypercholesterolemia, unspecified Lipid Panel 4 Months E78.00 - Pure hypercholesterolemia, unspecified Triiodothyronine T3 Total 4 Months R79.89 - Other specified abnormal findings of blood chemistry Microalbumin, Random (w Creat) 4 Months E11.9 - Type 2 diabetes mellitus without complications Hemoglobin A1c 4 Months E11.9 - Type 2 diabetes mellitus without complications UA CC w/rflx Micro + Cult 4 Months R30.0 - Dysuria Vitamin D 25-OH Total 4 Months E55.9 - Vitamin D deficiency, unspecified Free T4 (Free Thyroxine) 4 Months E03.9 - Hypothyroidism, unspecified, R79.89 - Other specified abnormal findings of blood chemistry Thyroid Stimulating Hormone 4 Months E03.9 - Hypothyroidism, unspecified, R79.89 - Other specified abnormal findings of blood chemistry
[2025-02-24 09:05] VITALS: BP 152/62; PULSE 72; BMI 31.6
--- OUTSIDE RECORDS SUMMARY | 2025-02-24 10:35 | XMS_ITS | Encounter Summary ---
Author Organization [facility] Address [address] [address] Phone Care Team Providers Care Hand Shaker Name Role Phone Mulugeta Crowder MD Primary Care Provider [phone] Encounter Details Date Type Department Care Team (Late st Contact Info) Description 10/09/2020 Telephone [facility] [address] [place] [address] Kasey Cobos LDN [email or web address] Social History Tobacco Use Types Packs/Day [...] Care Team (Late st Contact Info) Description 05/08/2025 9:00 AM EST Nutrition [facility] [address] [place] [phone] Marisa Shafer LDN [address] [facility], [address] [place] [address] 08/05/2025 9:00 AM EST Office Visit [facility] [address] [place] [address] Noemi Boyec MD [address] [place] [address], [address] [place] [address] [email or web address] documented as of this encounter Visit Diagnoses Not on filedocumented in this encounter Care Teams Hand Shaker Relationship Specialty Start Date End Date Mulugeta Crowder MD [address] [place] [address] Dr [place] [address] PCP - General Internal Medicine 09/20/19 documented as of this encounter Additional Source Comments The information contained in this document represents components of the legal health record. It is not the complete legal health record.[facility]
--- OUTSIDE RECORDS SUMMARY | 2025-02-24 10:35 | XMS_ITS | Clinical Summary ---
Author Organization [facility] Address [address] [employer] [address] [address] Phone Care Team Providers Care Professor Of Psychiatry Name Role Phone Mulugeta Crowder MD Primary Care Provider [phone] Allergies No known active allergies Medications FARXIGA [...] Date Primary hypertension 07/10/2023 Assessment & Plan (02/05/2025 1:17 PM EDT): Blood pressure is again borderline today Most recent GFR >60 based on labs from this spring, data reviewed on [employer] Blood sugar control is improved in the recent past Continues on ACEi SGLT2i therapy is also providing renal benefits Assessment & Plan (07/26/2024 1:19 PM EST): [...] renal benefits Overweight 07/10/2023 Assessment & Plan (02/05/2025 1:15 PM EDT): Weight has been stable over past several months, BMI ~29 Has maintained a weight loss of ~20lb since summer 2022 Continues to tolerate Mounjaro well Assessment & Plan (07/26/2024 1:16 PM EST): [...] (obstructive sleep apnea) 07/10/2023 Assessment & Plan (02/05/2025 1:17 PM EDT): Uses CPAP consistently We discussed changes in sleep architecture with age and appropriateness of naps during the day, if napping or fatigue is increasing then may need CPAP settings evaluated to ensure sleep quality overnight is good Working with sleep medicine at [facility] Assessment & Plan (07/10/2023 9:53 AM EST): Uses CPAP consistently Working with sleep medicine at [facility] Type 2 diabetes mellitus wit h microalbuminuria, without long-term current use of insulin 10/16/2019 Assessment & Plan (02/05/2025 1:21 PM EDT): Christian is currently on basal insulin, RAMOS, GLP1/GIP, SGLT2i and Metformin, he is tolerating these well, Christian has continued to do well with keeping active and is trying to be more mindful about healthy eating, he tends to be self deprecating and doesn't ever feel he is doing enough, we discussed this and his efforts overall at length today He will continue Mounjaro at 10mg weekly, this is likely to continue to impact his insulin sensitivity, Christian is advised to continue to be cognizant of increased frequency of lower or low glucose which has occurred in the past due to improved lifestyle habits and may occur due to RAMOS therapy, he is encouraged to discontinue this if he finds that activity is increased and he is having more lows Christian's challenge remains a tendency toward bingeing on unhealthy snacks particularly in the evening, we discussed trying to not go hungry during the day which is likely setting him up for overeating later, when he is more consistent with not overeating at night his overnight and morning blood sugars are lower Christian continues to do well with sobriety We will follow up in 6 months, Christian will also return to meet with Marisa Shafer in 3 months, he is encouraged to contact us with any questions or concerns in the interim Assessment & Plan (07/26/2024 1:23 PM EST): [...] glucose levels. Up to date with [facility] Assessment & Plan (07/10/2023 9:52 AM EST): [...] health provider or using an serge like [employer], Christian eats a healthy diet otherwise so [...] no redness, no bleeding. Plan: Procedure Codes: 54781 Glucose monitoring, cont Encounters Date Type Department Care Team Description 02/24/[address] [place] [address] Noemi Boyce MD Medication Refill 02/05/2025 9:40 AM EDT Office Visit [address] [place] [address] Noemi Boyce MD Type 2 diabetes mellitus with microalbuminuria, without long-term current use of insulin (Primary Dx); Primary hypertension; J CARLOS (obstructive sleep apnea); Overweight 01/27/[address] [place] [address] Krystle Alonzo, ADAN Appointment from Last 3 Months Immunizations Immunization [...] Sign Reading Time Taken Comments Blood Pressure 134/68 02/05/2025 9:39 AM EDT Pulse 78 02/05/2025 9:39 AM EDT Temperature 36.2 C (97.1 F) 01/12/2024 8:57 AM EDT Respiratory Rate - - Oxygen Saturation 98% 02/05/2025 9:39 AM EDT Inhaled Oxygen Concentration - - Weight 98.8 kg (217 lb 12.8 oz) 02/05/2025 9:39 AM EDT Height 182.9 cm (6' 0.01 ) 02/05/2025 9:39 AM ED T Body Mass Index 29.53 02/05/2025 9:39 AM EDT Plan of Treatment Upcoming Encounters Date Type Department Care Team (Late st Contact Info) Description 05/08/2025 9:00 AM EST Nutrition [facility] [address] [place] [address] Marisa Shafer LDN [address] [place] [address] 08/05/2025 9:00 AM EST Office Visit [facility] [address] [place] [address] Noemi Boyce MD [address] [address] Health Maintenance Due Date Last Done Comments DEPRESSION SCREENING 1967 HEPATITIS C SCREENING 1973 COLOGUARD 2000 COLONOSCOPY 2000 COLORECTAL CANCER SCREENING 2000 FIT TEST 2000 FOBT 2000 SIGMOIDOSCOPY 2000 VIRTUAL COLONOSCOPY 2000 ZOSTER VACCINES (1 of 2) 2005 DIABETIC EYE EXAM 10/16/2019 PNEUMOCOCCAL VACCINES (50+ years) (2 of 2 - PCV) 05/18/2021 05/18/2020, 04/30/2019 POTASSIUM LEVEL 08/10/2023 08/09/2022, 12/10/2021 CREATININE LEVEL 09/12/2024 09/13/2023, , 11/02/2021, Additional history exists INFLUENZA VACCINE (#1) 2025 , 03/27/2023, 04/04/2022, Additional history exists COVID-19 VACCINE ( season) 2025 03/26/2024, 03/27/2023, 04/04/2022, Additional history exists BLOOD PRESSURE 08/05/2025 02/05/2025 HEMOGLOBIN A1C 08/05/2025 02/05/2025, 01/0 11/2024, 01/06/2023, Additional history exists Adult Td,Tdap Booster 05/18/2030 05/18/2020, 010 RSV VACCINE Completed 03/27/2023 SMOKING STATUS SCREENING (Once After 26 Yrs) Completed 02/05/2025 HEPATITIS A VACCINES Aged Out No long [...] Procedure Name Priority Date/Time Associated Diagnosis Comments POCT HEMOGLOBIN A1C Routine 02/05/2025 9 :57 AM EDT Type 2 diabetes mellitus with microalbuminuria, without long-term current use of insulin COMPREHENSIVE METABOLIC PANEL Routine 09/13/2023 7:55 AM EDT OUTSIDE POTASSIUM LEVEL Routine 08/09/2022 from Last 3 Months or Most Recently Relevant to Health Maintenance Results * (ABNORMAL) POCT Hemoglobin A1c (02/05/2025 9:57 AM EDT) Hemoglobin A1c 8.0(A) 4.2 - 5.6 % [facility] Other 02/05/2025 9:57 AM EDT Noemi Boyce MD POINT OF CARE TEST ORDERABLES F inal Result [facility] [address] [place] [address], [facility] * Comprehensive metabolic panel (09/13/2023 7:55 AM EDT) Historical Provider LAB BLOOD ORDERABLES Donna l Result * Outside Potassium Level (08/09/2022) Potassium level - External 4.8 3.4 - 5.0 mmol/L Historical Provider LAB BLOOD ORDERABLES Donna l Result from Last 3 Months or Most Recently Relevant to Health Maintenance [facility] MEDICARE SUPPLEMENT MEDICARE PART A & B [facility] MEDICARE SUPPLEMENT MEDICARE PART A & B [facility] MEDICARE SUPPLEMENT MEDICARE PART A & B [facility] MEDICARE SUPPLEMENT MEDICARE PART A & B [facility] MEDICARE SUPPLEMENT MEDICARE PART A & B Member Subscriber Plan / Payer (Ef fective 2020-Present) Name:Maximus Eli Member ID:[id number] Relation to Subscriber:Self Name:Maximus Eli Subscriber ID:[id number] Payer ID:[id number] Group ID:Not on file Type:Medicare Address: [facility] [facility] [address] [place] [phone] [facility] MEDICARE SUPPLEMENT MEDICARE PART A & B [facility] MEDICARE SUPPLEMENT MEDICARE PART A & B [facility] MEDICARE SUPPLEMENT MEDICARE PART A & B [facility] MEDICARE SUPPLEMENT MEDICARE PART A & B Care Teams Professor Of Psychiatry Relationship Specialty Start Date End Date Mulugeta Crowder MD [address] [place] [address] Dr Stock, [place] [address] PCP - General Internal Medicine 09/20/19 Additional Source Comments The information contained in this document represents components of the legal health record. It is not the complete legal health record.[facility]
--- OUTSIDE RECORDS SUMMARY | 2025-02-24 10:35 | XMS_ITS ---
Author Organization Unknown ENCOUNTERS Encounter Performer Location Date Diagnosis Diagnosis Status Pre Admit [address] [id number] Out[address] [address] [id number] SHAHANA *Note: Encounters from your own facility or health system may be excluded. Allergies, Adverse Reactions, Alerts Allergen Type Severity Identification Date Medications Name Date Quantity Days Supplied GPI Number
--- OUTSIDE RECORDS SUMMARY | 2025-02-24 10:35 | XMS_ITS | Encounter Summary ---
Author Organization [facility] Address [address] [employer] [facility] [address] [place] [phone] Phone Care Team Providers Care Clinical Team Lead Name Role Phone Mulugeta Crowder MD Primary Care Provider [phone] Reason for Visit * Reason Comments Medication Refill Encounter Details Date Type Department Care Team (Late st Contact Info) Description 02/24/2025 Refill [facility] [address] [place] [address] [place] [address] Noemi Boyce MD 22 [facility], 1[address] [place] [address] [email or web address] Medication Refill Social History Tobacco Use Types Packs/Day Years [...] Info) Description 05/08/2025 9:00 AM EST Nutrition [facility] [address] [place] [address] Marisa Shafer LDN 22 [facility], [address] [place] [address] 08/05/2025 9:00 AM EST Office Visit [facility] [address] [place] [address] Noemi Boyce MD 22 [facility], [address] [place] [address] documented as of this encounter Visit Diagnoses Diagnosis Type 2 diabetes mellitus with microalbuminuria, without long-term current use of insulin documented in this encounter Care Teams Clinical Team Lead Relationship Specialty Start Date End Date Mulugeta Crowder MD [address] [place] [address] [place] [address] PCP - General Internal Medicine 09/20/19 documented as of this encounter Additional Source Comments The information contained in this document represents components of the legal health record. It is not the complete legal health record.[facility]
== END 2025-02-24 10:21 | disposition home or self-care (01) ==
LOC: HO.HMCH 09:02
PROVIDERS: PCP Internal Medicine; Visit Provider Internal Medicine
DX: E11.29 Type 2 diabetes mellitus with other diabetic kidney complication (principal); E11.69 Type 2 diabetes mellitus with other specified complication; R80.9 Proteinuria, unspecified; E78.00 Pure hypercholesterolemia, unspecified; I10 Essential (primary) hypertension; M51.360 Other intervertebral disc degeneration, lumbar region with discogenic back pain only; E55.9 Vitamin D deficiency, unspecified; R79.89 Other specified abnormal findings of blood chemistry; G47.33 Obstructive sleep apnea (adult) (pediatric); E34.9 Endocrine disorder, unspecified; N52.1 Erectile dysfunction due to diseases classified elsewhere; N40.1 Benign prostatic hyperplasia with lower urinary tract symptoms

== ENCOUNTER → 2025-02-24 09:02 | Outpatient (BNVA) | payer MEDICARE, OTHER, SELFPAY | PROVIDERS: PCP Internal Medicine; Visit Provider Internal Medicine | DX: E11.29 Type 2 diabetes mellitus with other diabetic kidney complication (principal); E11.69 Type 2 diabetes mellitus with other specified complication; I10 Essential (primary) hypertension; E78.5 Hyperlipidemia, unspecified; F41.9 Anxiety disorder, unspecified; R80.9 Proteinuria, unspecified; E78.00 Pure hypercholesterolemia, unspecified; M51.360 Other intervertebral disc degeneration, lumbar region with discogenic back pain only; E55.9 Vitamin D deficiency, unspecified; R79.89 Other specified abnormal findings of blood chemistry; G47.33 Obstructive sleep apnea (adult) (pediatric); E34.9 Endocrine disorder, unspecified; N52.1 Erectile dysfunction due to diseases classified elsewhere; N40.1 Benign prostatic hyperplasia with lower urinary tract symptoms; R35.0 Frequency of micturition; F10.11 Alcohol abuse, in remission; F33.9 Major depressive disorder, recurrent, unspecified; E66.9 Obesity, unspecified; Z68.31 Body mass index [BMI] 31.0-31.9, adult | CPT/HCPCS: 96127 ==

== ENCOUNTER 2025-04-02 10:13 | Outpatient (AMB) | payer MEDICARE, OTHER, SELFPAY ==
[2025-04-02 10:21] VITALS: BP 142/62; PULSE 80; O2SAT 97; BMI 31.1
--- NOTE | 2025-04-02 10:21 | MHC.OFFVIS ---
Vital Signs 04/02/25 10:21 Height 5 ft 10 in Weight 217 lb BMI 31.1 BP 142/62 H Blood Pressure Location Lt brachial Position Sitting Pulse 80 Pulse Source Pulse Oximeter Pulse Oximetry (%) 97 Oxygen Delivery Method Room Air Intake Visit Reasons: Obstructive sleep apnea Intake Note: pt is here for follow up of J CARLOS, send supply order and notes to [facility]. He does not sleep throughout the night, and has very dry mouth, and naps with cpap. He has been a cpap user for over 20 years. 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: No Allergies No Known Allergies Allergy (Verified 04/02/25 10:52) Medication List - Last Reconciled 04/02/25 by Breanne Mcallister MD aspirin 81 mg PO DAILY blood sugar diagnostic 1 strip miscellaneous TID dapagliflozin propanediol (Farxiga) 10 mg PO DAILY finasteride 5 mg PO DAILY 90 days fluoxetine 40 mg PO DAILY glipizide 5 mg PO DAILY glipizide ER 5 mg PO DAILY insulin glargine 30 units subcut DAILY lisinopril 40 mg PO DAILY 90 days metformin 1,000 mg PO BID multivitamin (Daily Multi-Vitamin tablet) 1 tab PO DAILY simvastatin 40 mg PO BEDTIME 90 days tadalafil (Cialis) 10 mg PO .PRN PRN 90 days tadalafil (Cialis) 10 mg PO DAILY 90 days tirzepatide (Mounjaro) 10 mg subcut QWEEK Do you need a note to return to daycare/school/sports/work: No HPI HPI Obstructive sleep apnea: Details: Mr. Hamilton, is 70 years old gentleman. With history of obstructive sleep apnea for about 20 years. This is his 3rd CPAP machine. That he is using He is doing well. with the CPAP uses however he wakes up a few times during the night to go to the bathroom , which interrupts his sleep. He catches up with his sleep by naps during the daytime. So overall usage per night and day is about 10 hours. He does use the humidification at is maximum level, . And still has dry mouth He is using fullface mask and there is not much air leak. He is being treated for diabetes mellitus, erectile dysfunction and hypertension. Recently started on Mounjaro injections, and he has lost a few lb more. He was last seen by me in 2022, and now DME supplier wanted him to come for a visit before he could get more supplies, [facility] Medical History Epidermoid cyst of skin of back Epidermal inclusion cyst Abscess of back Restless leg syndrome Obesity (BMI 30-39.9) Depression Panic disorder [episodic paroxysmal anxiety] Anxiety Alcohol abuse, in remission Hypotestosteronism Obstructive sleep apnea Low TSH level Vitamin D deficiency Lumbar degenerative disc disease Benign essential hypertension Pure hypercholesterolemia Proteinuria, unspecified Type 2 diabetes mellitus with other diabetic kidney complication Surgical History History of excision of epidermal inclusion cyst (~06/12/24) Hx of colonoscopy History of removal of cyst Family History Father Medical history unknown Adopted Mother Medical history unknown Adopted Social History Household Members: Spouse Housing: House Alcohol intake: never Patient Tobacco Use Status: Never used Tobacco e-Cigarette/Vaping Use: Never Used Second Hand Smoke Exposure: Yes Substance Use Type: Marijuana service: No Current occupational status: retired Cognitive needs: No Hearing needs: No Vision needs: Yes Review of Systems Const All systems reviewed & are unremarkable except as noted in HPI and below Eyes Reports no additional complaints ENT Denies nasal congestion and Denies nasal discharge Card Denies chest pain, Denies irregular heart rhythm and Denies leg edema Resp Reports as per HPI GI Reports no additional complaints Reports erectile dysfunction and Reports nocturia Musc Reports back pain (CHRONIC) Skin/Breast Reports system reviewed and no additional complaints, except as documented Neuro Reports restless legs and Reports paresthesias (IN LOWER EXTREMITIES) Psych Reports depression (CONTROLLED WITH MED) Physical Exam Vital Signs: Last Vital Signs Pulse 80 04/02/25 10:21 BP 142/62 H 04/02/25 10:21 Pulse Ox 97 04/02/25 10:21 Oxygen Delivery Method Room Air 04/02/25 10:21 BMI result Body Mass Index 31.1 PATIENT IS MODERATELY OBESE, WITH A ROUND FACE. HE DOES HAVE MODERATE DEGREE OF RETROGANTHIA OF THE LOWER JAW Const General: comfortable, no acute distress, alert and awake Orientation/consciousness: patient oriented x3 HEENT Head: Yes normal to inspection General nose exam: No nasal polyps present and No nasal discharge present Face and sinus: Yes sinuses nontender Mouth: oropharynx normal Teeth and gingiva: other (MILD RETROGANTHIA OF THE LOWER JAW) Throat: Yes posterior oropharynx normal Eyes General: appearance normal, both eyes and all related structures Neck Neck: Yes normal visual inspection, Yes no lymphadenopathy, Yes trachea midline and Yes no JVD Thyroid: Thyroid normal Chest Chest palpation & inspection: normal inspection of the chest, normal palpation of entire chest wall and no tenderness Resp Other: PERCUSSION NOTE RESONANT, BREATH SOUNDS ARE EQUAL ON BOTH SIDES, NO WHEEZES RHONCHI OR CREPITATIONS ARE HEARD. Cardio Palpation: normal PMI Rate: regular rate Rhythm: regular rhythm Heart sounds: no gallops and no murmurs GI Palpation (GI): Soft to palpation, nontender, No hepatosplenomegaly present and no masses Auscultation: normal bowel sounds Back/Spine/Pelvis Thoracic/Lumbar Spine: thoracic and lumbar spine normal to inspection and thoraco-lumbar ROM limited Skin General skin exam: no rashes or lesions noted Neuro General: patient oriented x3 and no focal motor deficits Cranial nerves: Yes CN's II-XII intact bilaterally Extrem General: Yes normal to inspection, Yes no clubbing, cyanosis or edema and Yes no calf tenderness Psych Appearance: grossly normal and well kempt Speech and movement: Normal speech and movement present Results Reviewed Results Reviewed: Compliance report for the last 30 nights shows that he has used 30/30 nights, 100%. Average usage per 24 hours is 10 hours 12 minutes. This includes a few naps during the daytime. There is not much air leak and residual AHI only 0.7 Assessment & Plan Assessment & Plan (1) Obstructive sleep apnea: Comment: LONGSTANDING HISTORY OF OBSTRUCTIVE SLEEP APNEA. CURRENT NEW CPAP DEVICE IS WORKING VERY WELL AND HE IS HAPPY WITH ITS USE. ( FF MASK AND PRESSURE =13 CMs ) Complains of dry mouth, in spite of using humidification at maximum level. Code(s): G47.33 - Obstructive sleep apnea (adult) (pediatric) Category: Medical Plan: COMPLIANCE IS EXCELLENT AND HE IS COMMENDED . FOR GOOD USAGE OF THE CPAP CONTINUE TO USE. HUMIDIFICATION AT MAXIMUM LEVEL ALSO USE A VAPORIZER IN THE BEDROOM EXTRA HUMIDIFICATION (2) Obesity (BMI 30-39.9): Comment: PATIENT IS MODERATELY OBESE, HE IS AWARE OF THIS ISSUE. HAS BEEN ABLE TO LOSE A FEW LB OF WEIGHT SINCE HE IS ON MOUNJARO INJECTIONS. HE DOES HAVE MILD DEGREE OF RETROGNATHIA OF THE LOWER JAW WHICH CONTRIBUTES TO HIS SLEEP APNEA, AND THIS IS GOING TO BE A PERMANENT DEFECT. Code(s): E66.9 - Obesity, unspecified Category: Medical Plan: PATIENT EDUCATED ABOUT HIS WEIGHT, NEED TO LOSE A FEW MORE LB. AND ALSO EXPLAINED ABOUT HIS ONGOING NEED TO USE CPAP. Coding Level of Care Code Est Pt Level 4 (67523) Diagnoses Obstructive sleep apnea G47.33 Obesity (BMI 30-39.9) E66.9
--- OUTSIDE RECORDS SUMMARY | 2025-04-02 12:40 | XMS_ITS | Encounter Summary ---
Author Organization [facility] Address [address] [address] Phone Care Team Providers Care Appliance Adjuster Name Role Phone Mulugeta Crowder MD Primary Care Provider [phone] Encounter Details Date Type Department Care Team (Late st Contact Info) Description 10/09/2020 Telephone [facility] [address] [place] [address] Kasey Cobos LDN [email or web address] Social History Tobacco Use Types [...] Info) Description 05/08/2025 9:00 AM EST Nutrition [facility] [address] [place] [phone] Marisa Shafer LDN 22 [facility], 1st [place] [address] 08/05/2025 9:00 AM EST Office Visit [facility] [address] [place] [address] Noemi Boyce MD [address] [place] [address], 1st [place] [address] [email or web address] documented as of this encounter Visit Diagnoses Not on filedocumented in this encounter Care Teams Appliance Adjuster Relationship Specialty Start Date End Date Mulugeta Crowder MD [address] [place] [address] [place] [address] PCP - General Internal Medicine 09/20/19 documented as of this encounter Additional Source Comments The information contained in this document represents components of the legal health record. It is not the complete legal health record.[facility]
--- OUTSIDE RECORDS SUMMARY | 2025-04-02 12:41 | XMS_ITS | Clinical Summary ---
Author Organization [facility] Address [address] [address] Phone Care Team Providers Care Co Founder Name Role Phone Mulugeta Crowder MD Primary Care Provider [phone] Allergies No known active allergies Medications FARXIGA [...] , without long-term current use of insulin INJECT 1 PEN SUBCUTANEOUSLY ONCE WEEKLY, 6 mL 1 02/25/20 25 Active Active Problems Problem Noted Date Diagnosed Date Primary hypertension 07/10/2023 Assessment & Plan (02/05/2025 1:17 PM EDT): Blood pressure is again borderline today Most recent GFR >60 based on labs from this spring, data reviewed on [employer] Blood sugar control is improved in the [...] is good Working with sleep medicine at [facility] Assessment & Plan (07/10/2023 9:53 AM EST): Uses CPAP consistently Working with sleep medicine at [facility] Type 2 diabetes mellitus wit h [...] his glucose levels. Up to date with [facility] Assessment & Plan (07/10/2023 9:52 [...] in data in the evening in general Crhistian is currently on basal insulin, RAMOS, GLP1ra, [...] health provider or using an serge like [employer], Christian eats a healthy diet otherwise so [...] no redness, no bleeding. Plan: Procedure Codes: 69531 Glucose monitoring, cont Encounters Date Type Department Care Team Description 02/24/[address] [place] [address] Noemi Boyce MD Medication Refill 02/05/2025 9:40 AM EDT Office Visit [address] [place] [address] Noemi Boyce MD Type 2 diabetes mellitus with microalbuminuria, without long-term current use of insulin (Primary Dx); Primary hypertension; J CARLOS (obstructive sleep apnea); Overweight 01/27/[address] [place] [address] Krystle Alonzo, ADAN Appointment from Last 3 [...] Info) Description 05/08/2025 9:00 AM EST Nutrition [facility] [address] [place] [address] Marisa Shafer LDN [address] [address] [email or web address] 08/05/2025 9:00 AM EST Office Visit [facility] [address] [place] [address] Noemi Boyce MD [address] [address] Health Maintenance Due Date Last Done Comments [...] 03/27/2023, 04/04/2022, Additional history exists COVID-19 VACCINE (2024- season) 2025 03/26/2024, 03/27/2023, 04/04/2022, Additional history exists BLOOD PRESSURE 08/05/2025 02/05/2025 HEMOGLOBIN A1C 08/05/2025 02/05/2025, 11/2024, 01/06/2023, Additional history exists Adult Td,Tdap [...] Hemoglobin A1c 8.0(A) 4.2 - 5.6 % [facility] Other 02/05/2025 9:57 AM EDT Noemi Boyce MD POINT OF CARE TEST ORDERABLES F inal Result [facility] [address] [place] [address], [facility] * Comprehensive metabolic panel (09/13/2023 7:55 AM EDT) Historical Provider LAB BLOOD ORDERABLES Donna l Result * Outside Potassium Level (08/09/2022) Potassium level - External 4.8 3.4 - 5.0 mmol/L Historical Provider LAB BLOOD ORDERABLES Donna l Result from Last 3 Months or Most Recently Relevant to Health Maintenance [facility] SUPPLEMENT MEDICARE PART A & B Member Subscriber Plan / Payer (Ef fective 2020-Present) Name:Maximus Eli Member ID:[id number] Relation to Subscriber:Self Name:Maximus Eli Subscriber ID:[id number] Payer ID:[id number] Group ID:Not on file Type:Medicare Address: [employer] [address] [place] [id number] [facility] MEDICARE SUPPLEMENT MEDICARE PART A & B [facility] MEDICARE SUPPLEMENT MEDICARE PART A & B [facility] EX[employer]ENSION MEDICARE SUPPLEMENT MEDICARE PART A & B [facility] [employer] MEDICARE SUPPLEMENT [place] [id number] MEDICARE PART A & B [facility] MEDICARE SUPPLEMENT MEDICARE PART A & B [facility] MEDICARE SUPPLEMENT MEDICARE PART A & B [facility] MEDICARE SUPPLEMENT MEDICARE PART A & B [facility] MEDICARE SUPPLEMENT MEDICARE PART A & B Care Teams Co Founder Relationship Specialty Start Date End Date Mulugeta Crowder MD [address] [place] [address] [place] [address] PCP - General Internal Medicine 09/20/19 Additional Source Comments The information contained in this document represents components of the legal health record. It is not the complete legal health record.[facility]
== END 2025-04-02 10:54 | disposition home or self-care (01) ==
LOC: HO.HPS 10:14
PROVIDERS: PCP Internal Medicine; Visit Provider Internal Medicine
DX: G47.33 Obstructive sleep apnea (adult) (pediatric) (principal); E66.9 Obesity, unspecified
CPT/HCPCS: 99214

== ENCOUNTER → 2025-04-02 10:13 | Outpatient (BNVA) | payer MEDICARE, OTHER, SELFPAY | PROVIDERS: PCP Internal Medicine; Visit Provider Internal Medicine | DX: G47.33 Obstructive sleep apnea (adult) (pediatric) (principal); Z99.89 Dependence on other enabling machines and devices; E66.9 Obesity, unspecified | CPT/HCPCS: 99212 ==